=== PATIENT | female | born 1965 | race Caucasian/White ===

== ENCOUNTER 2019-12-23 09:00 | Outpatient (CLI) | payer OTHER, SELFPAY ==
[2019-12-23 09:18] LABS: Basophils Absolute Auto 0.1 K/mm3 (0.0-0.1); Basophils Percent Auto 0.7 % (0.2-1.2); Eosinophils Absolute Auto 0.3 K/mm3 (0-0.3); Eosinophils Percent Auto 2.6 % (0-4.4); Hematocrit 31.1 % (37.0-47.0); Hemoglobin 9.8 g/dL (12.0-15.0); Immature Granulocyte Absolute 0.05 K/mm3 (0.00-0.031); Immature Granulocyte Percent A 0.4 % (0-0.5); Lymphocytes Absolute Auto 1.91 K/mm3 (0.9-3.2); Lymphocytes Percent Auto 16.4 % (18.3-44.2); Mean Corpuscular HGB Conc 31.5 g/dl (32-36); Mean Corpuscular Hemoglobin 29.4 pg (26-34); Mean Corpuscular Volume 93.4 fl (80-100); Mean Platelet Volume 8.4 fl (7.4-10.4); Monocytes Absolute Auto 0.5 K/mm3 (0.1-0.6); Monocytes Percent Auto 4.4 % (2.6-8.5); Neutrophils Absolute Auto 8.8 K/mm3 (1.3-6.7); Neutrophils Percent Auto 75.5 % (45.5-73.1); Platelet Count Result 719 k/mm3 (150-375); Red Blood Count 3.33 M/mm3 (4.2-5.4); White Blood Count 11.6 K/mm3 (4.5-10.0)
[2019-12-23 09:30] LABS: Blood Urea Nitrogen 15 mg/dL (7-17); Carbon Dioxide 21 mmol/L (22-30); Chloride 105 mmol/L (98-107); Estimated Glomerular Filt Rate > 60; Glucose 78 mg/dL (65-105); Potassium 3.7 mmol/L (3.4-5.0); Sodium 138 mmol/L (137-145)
== END 2019-12-23 09:01 | disposition home or self-care (01) ==
LOC: ANHLAB 09:03
PROVIDERS: PCP Internal Medicine; Visit Provider Surgery
DX: K63.5 Polyp of colon (principal)
CPT/HCPCS: 36415; 80048; 85025

== ENCOUNTER 2019-12-30 08:32 | Outpatient (CLI) | payer OTHER, SELFPAY ==
[2019-12-30 08:45] LABS: Basophils Absolute Auto 0.1 K/mm3 (0.0-0.1); Eosinophils Absolute Auto 0.3 K/mm3 (0-0.3); Eosinophils Percent Auto 4.4 % (0-4.4); Hematocrit 31.5 % (37.0-47.0); Hemoglobin 10.1 g/dL (12.0-15.0); Immature Granulocyte Absolute 0.03 K/mm3 (0.00-0.031); Immature Granulocyte Percent A 0.4 % (0-0.5); Lymphocytes Absolute Auto 2.09 K/mm3 (0.9-3.2); Lymphocytes Percent Auto 28.9 % (18.3-44.2); Mean Corpuscular HGB Conc 32.1 g/dl (32-36); Mean Corpuscular Hemoglobin 29.3 pg (26-34); Mean Corpuscular Volume 91.3 fl (80-100); Mean Platelet Volume 8.4 fl (7.4-10.4); Monocytes Absolute Auto 0.4 K/mm3 (0.1-0.6); Monocytes Percent Auto 5.1 % (2.6-8.5); Neutrophils Absolute Auto 4.3 K/mm3 (1.3-6.7); Neutrophils Percent Auto 60.2 % (45.5-73.1); Platelet Count Result 558 k/mm3 (150-375); Red Blood Count 3.45 M/mm3 (4.2-5.4); Red Cell Distribution Width 13.1 % (11.5-14.5); White Blood Count 7.2 K/mm3 (4.5-10.0)
[2019-12-30 08:57] LABS: Alanine Aminotransferase 20 U/L (4-35); Albumin Level 4.2 g/dL (3.5-5.1); Alkaline Phosphatase 79 U/L (38-126); Aspartate Amino Transferase 25 U/L (14-36); Bilirubin,Total 0.2 mg/dL (0.2-1.3); Blood Urea Nitrogen 16 mg/dL (7-17); Calcium 9.4 mg/dL (8.4-10.2); Carbon Dioxide 18 mmol/L (22-30); Chloride 107 mmol/L (98-107); Estimated Glomerular Filt Rate > 60; Glucose 92 mg/dL (65-105); Potassium 3.8 mmol/L (3.4-5.0); Sodium 141 mmol/L (137-145)
== END 2019-12-30 08:33 | disposition home or self-care (01) ==
LOC: ANHLAB 08:34
PROVIDERS: PCP Internal Medicine; Visit Provider Surgery
DX: K63.5 Polyp of colon (principal)
CPT/HCPCS: 36415; 80053; 85025

== ENCOUNTER 2020-01-11 07:27 | Outpatient (CLI) | payer OTHER, SELFPAY ==
--- NOTE | ~2020-01-11 | CT_ITS ---
EXAMINATION: CT abdomen pelvis w con DATE: 01/11/2020 08:18 INDICATION: Lower abdominal pain since small bowel resection and colectomy surgery 12/08/2019 TECHNIQUE: Computed tomography (CT) of the abdomen and pelvis was performed with 100 cc Omnipaque 350 intravenous contrast. Automated exposure control and iterative reconstruction technique were employe d. Exam dose: 954.87 mGy-cm total exam DLP. COMPARISON: 12/13/2019 CT abdomen pelvis FINDINGS: There are scattered areas of discoid atelectasis and/or scarring in the included lower lung zones but no consolidation. Normal heart size. No pericardial or pleural effusion. There are multiple surgical clips at the gallbladder fossa. No hepatic, splenic, pancreatic or adrena l space-occupying mass lesion is detected. There is upper pole right renal scarring. There is a 4 mm nonenhancing lower pole left renal lesion, too small to definitively characterize, st atistically most likely a small cyst. No other renal space occupying mass lesion. There is extensive calcification of the abdominal aorta, without aneurysm or dissection. There is an open surgical wound of the anterior abdominal wall right of midline, some soft tissue thi ckening along the surgical scar. No apparent drainable abnormal abdominal wall fluid collection. There is considerably diminished free fluid in the pelvis, with only minimal residual dependent fluid in the lower pelvis. No abscess cavity is identified. Again noted is extensive partial colectomy. Minimal diverticulosis of the colon. No bowel obstruction or intraperitoneal free air is evident. Anterior, interbody and posterior spinal fusion at L5-S1. IMPRESSION: Status post partial colectomy with ileocolic anastomosis; no bowel obstruction is eviden t There is diminished free fluid since 12/13/2019 No drainable abscess is identified. Reviewed, dictated and finalized at [facility]. Reviewed, dictated and finalized at location [facility]. [employer]M [employer]PARER IMPRESSION: Status post partial colectomy with ileocolic anastomosis; no bowel obstruction is evident There is diminished free fluid since 12/13/2019 No drainable abscess is identified.
== END 2020-01-11 07:28 | disposition home or self-care (01) ==
PROVIDERS: PCP Internal Medicine; Visit Provider Surgery
DX: R10.30 Lower abdominal pain, unspecified (principal)
CPT/HCPCS: 74177; Q9965

== ENCOUNTER 2020-01-30 16:09 | Emergency (ER) | payer OTHER, SELFPAY ==
--- NOTE | ~2020-01-30 | CT_ITS ---
EXAMINATION: CT abdomen pelvis w con EXAM DATE: 01/30/2020 17:32 INDICATION: Low abdominal pain. TECHNIQUE: Spiral CT of the abdomen and pelvis was performed following intravenous injection of 100 m L Omnipaque 350. Axial, coronal and sagittal images were reviewed. The dose-length product (DLP) fo r this examination was 690.64 mGy-cm. The exposure was tailored according to patient size (auto mA e xposure control), and iterative reconstruction (ASIR) was used as additional dose reduction technique . Comparison is made to prior examination from 01/11/2020. FINDINGS: Partial colectomy with moderate amount of colonic edema, colitis new compared to prior stud y. Colonic fluid indicating diarrhea. Also, development of small focal pocket of fluid extending from the abdominal wall to the skin in the left side of the umbilicus measuring about 1.5 x 3.3 cm, appea tammie is consistent with small abscess. The liver, spleen, adrenal glands and pancreas are unremarkable. There are cholecystectomy clips. P ortal and splenic veins are patent. Kidneys enhance symmetrically. There is no hydronephrosis. Righ t renal cortical scarring at the superior pole (reportedly patient has history of kidney cancer and t his could be the treatment site). The uterus is not identified and has likely been surgically resect ed. The bladder is unremarkable. There is no retroperitoneal or pelvic lymphadenopathy. There is mild scattered arteriosclerotic disease. The stomach and small bowel are unremarkable. Surgical changes from hemicolectomy. No free intrape ritoneal gas. The heart is normal in size. There are no pericardial or pleural effusions. The sean g bases are unremarkable. There are no osteoblastic or osteolytic lesions identified. L5-S1 fusion h ardware. IMPRESSION: 1. Partial colectomy with colitis of remaining portion of colon. Diarrhea. 2. Small abscess along medial side of the umbilicus, should be easily be palpable and drainable with out need for imaging guidance if indicated clinically. 3. Right renal cortical scarring. Reviewed, dictated and finalized at location [facility]. IMPRESSION: 1. Partial colectomy with colitis of remaining portion of colon. Diarrhea. 2. Small abscess along medial side of the umbilicus, should be easily be palpa ble and drainable without need for imaging guidance if indicated clinically. 3. Right renal cortical scarring.
[2020-01-30 16:10] VITALS: BP 155/76; PULSE 78; RESP 20; TEMP 37; O2SAT 96
[2020-01-30] MEDS: SODIUM CHLORIDE 0.9% IV 1,000 ML 999 ML IV CONT (16:42)
[2020-01-30] MEDS: ONDANSETRON INJ 4 MG/2 ML VIAL IV PUSH (16:42)
[2020-01-30 16:43] LABS: Hematocrit 34.8 % (35.0-49.0); Hemoglobin 11.5 g/dL (12.0-15.0); Mean Corpuscular Volume 87.7 fL (78.0-102.0); Mean Platelet Volume 8.5 fl (9.2-11.8); Platelet Count Result 431 K/mm3 (150-420); Red Blood Count 3.97 M/mm3 (4.20-5.40); Red Cell Distribution Width 12.7 % (11.6-14.4); White Blood Count 9.4 K/mm3 (4.8-10.8)
[2020-01-30] MEDS: MORPHINE SULFATE 4 MG/ML INJ IM (16:43)
[2020-01-30 16:44] LABS: Add Urine Microscopic? YES; Appearance Urine Clear (Clear); Bilirubin Urine Negative (Negative); Blood Urine Negative (Negative); Color Urine Yellow (Yellow); Glucose Urine UA Negative (Negative); Ketones Urine 1+ (Negative); Leukocyte Esterase Ur Negative (Negative); Nitrate Urine Negative (Negative); Protein Urine 2+ (Negative); Urobilinogen Urine 0.2 mg/dL (0.2-1.0)
--- NOTE | 2020-01-30 16:44 | PC.NURSE ---
MORPHINE 4 MG GIVEN IVP VORB LAC
[2020-01-30 16:54] LABS: RBC Urine 0-2 /hpf (0-2); Squamous Epithelial Cell Urine Rare /hpf (Few); WBC Urine 0-3 /hpf (0-3)
[2020-01-30 16:55] LABS: Bacteria Urine 1+ /hpf
[2020-01-30 17:01] LABS: Alanine Aminotransferase 16 U/L (14-59); Albumin Level 3.5 g/dL (3.4-5.0); Alkaline Phosphatase 70 U/L (46-116); Anion Gap 18.9 mmol/L (7-16); Aspartate Amino Transferase 16 U/L (15-37); Bilirubin,Total 0.3 mg/dL (0.00-1.00); Blood Urea Nitrogen 8 mg/dL (7-18); Calcium 8.4 mg/dL (8.5-10.1); Carbon Dioxide 24 mmol/L (21-32); Chloride 103 mmol/L (98-108); Estimated Glomerular Filt Rate > 60; Glucose 76 mg/dL (70-99); Osmolality Calculated 293 mOsm/kg (285-295); Potassium 2.9 mmol/L (3.5-5.1); Sodium 143 mmol/L (136-145); Total Protein 7.4 g/dL (6.4-8.2)
[2020-01-30] MEDS: KCL 20MEQ/0.9% SOD CHL 1,000 ML 500 ML IV CONT (17:39)
[2020-01-30 17:47] VITALS: BP 157/75; PULSE 70; O2SAT 92
--- NOTE | 2020-01-30 17:54 | ED.ABDPAIN ---
HPI - Abdominal Pain General Chief Complaint: Abdominal Pain Stated Complaint: abdominal pain,weakness Source: patient and family Mode of arrival: ambulatory Limitations: no limitations History of Present Illness HPI narrative: This is a 54-year-old female that presents with history of right hemicolectomy secondary to a colon polyps and left colectomy with anastomosis, with a remote history of renal cell carcinoma, hypertension and hyperlipidemia. The presents with some abdominal and suprapubic and perineal discomfort that is chronic in nature and has had Toradol for pain which she claims initially was helping but currently is not giving her any relief does have pain with passing bowel and urine there is no rectal bleeding does have some dysuria and some soft runny stools with no fever or chills pain radiates into her pelvic area and with into the suprapubic area with no flank pain no fever chills does have nausea with no vomiting. MD elicited complaint: abdominal pain Pertinent past history: none Onset (ago): week(s) Pain Consistency: intermittent Location: suprapubic Severity: severe Pain scale (0-10): 8 Quality: aching and burning Relieving factors: nothing Associated symptoms: nausea Treatments prior to arrival: NSAIDs Related Data Home Medications Medication Instructions Recorded Confirmed ascorbate calcium (vitamin C) 500 1,000 mg PO DAILY 10/19/19 01/30/20 mg tablet cholecalciferol (vitamin D3) 50 50 mcg PO DAILY 10/19/19 01/30/20 mcg (2,000 unit) capsule ezetimibe 10 mg tablet 10 mg PO DAILY 10/19/19 01/30/20 insulin glargine 100 unit/mL 50 unit SUB-Q BID 10/19/19 01/30/20 subcutaneous solution linagliptin 2.5 mg-metformin 1,000 1 tablet PO BID 10/19/19 01/30/20 mg tablet losartan 25 mg tablet 25 mg PO HS 10/19/19 01/30/20 mecobalamin (vitamin B12) 1,000 1,000 mcg SUBLINGUAL DAILY 10/19/19 01/30/20 mcg disintegrating tablet,sublingual omeprazole 40 mg capsule,delayed 40 mg PO DAILY 10/19/19 01/30/20 release pravastatin 40 mg tablet 40 mg PO HS 10/19/19 01/30/20 sertraline 100 mg tablet 100 mg PO HS 10/19/19 01/30/20 tramadol 50 mg tablet 50 mg PO Q6H PRN 10/19/19 01/30/20 Cbd/Thc 0 mg BID 11/30/19 01/30/20 Allergies Allergy/AdvReac Type Severity Reaction Status Date / Time amoxicillin Allergy Unknown RASH Verified 01/17/20 09:04 clavulanic acid Allergy Unknown RASH Verified 01/17/20 09:04 Review of Systems Review of Systems: All systems reviewed & are unremarkable except as noted in HPI and below PMFSH Past Medical History Medical History Anxiety Cancer Depression Fibromyalgia High cholesterol History of blood clots History of renal cell carcinoma HTN (hypertension) IDDM (insulin dependent diabetes mellitus) UMU (obstructive sleep apnea) Portal vein thrombosis Surgical History Surgical History H/O: hysterectomy History of back surgery History of History of cholecystectomy History of colonoscopy History of nephrectomy History of right hemicolectomy hand access laparoscopic, right hemicolectomy open left colectomy with ileo sigmoid anastomosis, takedown splenic flexure, small-bowel resection with anastomosis x2 12/08/19 Hx of tonsillectomy Family History Family History Mother Hypertension Sibling Lung cancer Colon polyp Unknown Diabetes mellitus Cerebrovascular accident Hypertension Social History Social History Years smoked: 20 Smoking status: Current every day smoker Tobacco type: cigarettes Second hand tobacco smoke exposure: Yes Alcohol intake: unknown Substance use: unknown Substance use type: does not use Gender identity (if verbalized by the patient): Female Spiritual care concerns: No Agree to blood products: Ye
[2020-01-30] MEDS: MORPHINE SULFATE 2 MG/ML INJ IV PUSH (18:12)
[2020-01-30 19:08] VITALS: BP 117/63; PULSE 75; O2SAT 93
--- NOTE | 2020-01-30 19:20 | PC.NURSE ---
RN CALLED INTO ROOM. PT STATES SHE FEELS SHAKEY, FSBS FOUND TO BE 31. PT IS ALERT X 3 AND STATES SHE IS HUNGRY. D10 ORDERED PER VORB AND INFUSING. PT IS GIVEN MEAL TRAY. POTASSIUM 20 MEQ STOPPED AT THIS TIME UNTIL GLUCOSE REGULATES
--- NOTE | 2020-01-30 19:44 | PC.NURSE ---
100 ML D10 INFUSED - FSBS 60, WILL CONTINUE POTASSIUM 20 MEQ - WILL CONTINUE TO MONITOR FSBS
--- NOTE | 2020-01-30 20:18 | PC.NURSE ---
FSBS 67 - PT IS GIVEN ANOTHER PEPSI. PT STATES THAT SHE FEELS 100% BETTER AND WOULD LIKE TO GO HOME. ERP AT BEDSIDE
[2020-01-30 20:34] VITALS: BP 148/65; PULSE 80; O2SAT 99
[2020-01-30 21:43] LABS: Glucose Point of Care 60 (65-105)
[2020-01-30 21:43] LABS: Glucose Point of Care 67 (65-105)
[2020-01-30 21:43] LABS: Glucose Point of Care < 33 (65-105)
== END 2020-01-30 20:34 | disposition home or self-care (01) ==
PROVIDERS: Emergency Provider Emergency Medicine; PCP Internal Medicine
DX: R10.30 Lower abdominal pain, unspecified (principal); K62.3 Rectal prolapse; E87.6 Hypokalemia; R11.2 Nausea with vomiting, unspecified; N39.0 Urinary tract infection, site not specified
CPT/HCPCS: 36415; 74177; 80053; 81001; 85027; 96361; 96365; 96368; 96375; 96376; 99283; 99284; J2270; J2405; J3480; J7030; Q9965

== ENCOUNTER 2020-02-04 12:41 | Emergency (ER) | payer OTHER, SELFPAY ==
--- NOTE | ~2020-02-04 | CT_ITS ---
EXAMINATION: CT abdomen pelvis w con DATE: 02/04/2020 13:49 INDICATION: Low abdominal pain. TECHNIQUE: Computed tomography (CT) of the abdomen and pelvis was performed with 100 mL Omnipaque 350 intravenous contrast. Automated exposure control and iterative reconstruction technique were employe d. The dose-length product was 652.40 mGy-cm. COMPARISON: CT abdomen and pelvis 01/30/2020 FINDINGS: The visualized portions of the lung bases demonstrate mild atelectasis. No pleural effusion . The heart size is normal. No pericardial effusion. The liver demonstrates focal steatosis adjacent to ligamentum teres. There is an 8 mm cyst in the liver. There are changes of cholecystectomy. The sp fredo, pancreas, and adrenal glands are normal. There is cortical thinning of the kidneys. There is wa ll thickening of the rectosigmoid. There are changes of partial colon resection. There is trace ascit es. There is a midline incision with subcutaneous packing material. There are no pathologically enlar ged lymph nodes. There are changes of anterior and posterior fusion procedures at L5-S1. There is mod erate thoracic spondylosis and mild lumbar spondylosis. IMPRESSION: 1. Persistent wall thickening of the rectosigmoid, consistent with colitis. Reviewed, dictated and finalized at location [facility].
[2020-02-04 12:45] VITALS: RESP 20; TEMP 36.4
--- NOTE | 2020-02-04 12:50 | PC.NURSE ---
Patient reports that she had abcess drained by Dr Jeff on 12/08/2019 and again on Friday01/31/2020
--- NOTE | 2020-02-04 12:58 | ED.ABDPAIN ---
HPI - Abdominal Pain General Chief Complaint: Abdominal Pain Stated Complaint: abdominal pain Time Seen by Provider: 02/04/20 12:44 Source: patient and family Mode of arrival: ambulatory Limitations: no limitations History of Present Illness HPI narrative: A 54 y/o female pt presents to the ED, with c/o sharp LLQ ABD pain, and epigastric ABD pain that began at 100AM this morning that is worsening. Pt states she had a small bowel reduction performed in November and that she had a abscess drained by Dr. Jeff on Friday (4 days ago) and has noticed diffuse ABD soreness since. She denies having a wound vac and family at bedside that has been cleaning the pt's bandages, denies noticing an increase or change in drainage from the wound. Pt reports having lower back pain that began today, chronic diarrhea, nausea with pain, and BELTRAN, but denies CP or pressure, swelling in legs, fever/chills/sweats, and vomiting. She denies any alleviating or aggravating factors. Pt states she is currently on Abx for a UTI. She notes an allergy to amoxicillin. MD elicited complaint: abdominal pain Onset (ago): hour(s) (12) Location: diffuse (soreness), epigastric and LLQ (sharp) Quality: sharp (LLQ) Exacerbating factors: nothing Relieving factors: nothing Context: confirms recent antibiotic use (current Abx for UTI) and confirms recent surgery/procedure (abscess, small bowel reduction) Associated symptoms: nausea (with pain), diarrhea (chronic) and other (BELTRAN) Related Data Home Medications Medication Instructions Recorded Confirmed ascorbate calcium (vitamin C) 500 1,000 mg PO DAILY 10/19/19 02/02/20 mg tablet cholecalciferol (vitamin D3) 50 50 mcg PO DAILY 10/19/19 02/02/20 mcg (2,000 unit) capsule ezetimibe 10 mg tablet 10 mg PO DAILY 10/19/19 02/02/20 insulin glargine 100 unit/mL 50 unit SUB-Q BID 10/19/19 02/02/20 subcutaneous solution linagliptin 2.5 mg-metformin 1,000 1 tablet PO BID 10/19/19 02/02/20 mg tablet losartan 25 mg tablet 25 mg PO HS 10/19/19 02/02/20 mecobalamin (vitamin B12) 1,000 1,000 mcg SUBLINGUAL DAILY 10/19/19 02/02/20 mcg disintegrating tablet,sublingual omeprazole 40 mg capsule,delayed 40 mg PO DAILY 10/19/19 02/02/20 release pravastatin 40 mg tablet 40 mg PO HS 10/19/19 02/02/20 sertraline 100 mg tablet 100 mg PO HS 10/19/19 02/02/20 tramadol 50 mg tablet 50 mg PO Q6H PRN 10/19/19 02/02/20 Cbd/Thc 0 mg BID 11/30/19 02/02/20 Allergies Allergy/AdvReac Type Severity Reaction Status Date / Time amoxicillin Allergy Unknown RASH Verified 02/04/20 12:48 clavulanic acid Allergy Unknown RASH Verified 02/04/20 12:48 Review of Systems Review of Systems: All systems reviewed & are unremarkable except as noted in HPI and below Constitutional: Constitutional: Denies chills, Denies excessive sweating, Denies fever(s) and Reports headache(s) Cardiovascular: Cardiovascular: Denies chest pain (pressure) and Denies leg edema Gastrointestinal: Gastrointestinal: Reports abdominal pain (sharp LLQ, diffuse soreness, epigastric), Reports diarrhea (chronic), Reports nausea (with pain) and Denies vomiting Musculoskeletal: Musculoskeletal: Reports back pain (lower) Integumentary/Breasts: Skin/Breast: Denies other (change in wound drainage) PMFSH Past Medical History Medical History Anxiety Cancer Depression Fibromyalgia High cholesterol History of blood clots History of renal cell carcinoma HTN (hypertension) IDDM (insulin dependent diabetes mellitus) UMU (obstructive sleep apnea) Portal vein thrombosis Surgical History Surgical History H/O: hysterectomy History of back surgery History of History of cholecystectomy History of colonoscopy History of nephrectomy History of right hemicolectomy hand access laparoscopic, right hemicolectomy open left colectomy with ileo sigmoid anastomosis, takedown sple
[2020-02-04] MEDS: MORPHINE SULFATE 4 MG/ML INJ IV PUSH (13:14)
[2020-02-04] MEDS: ONDANSETRON INJ 4 MG/2 ML VIAL IV PUSH (13:14)
[2020-02-04 13:21] LABS: Glucose Point of Care 111 (65-105)
[2020-02-04 13:29] LABS: Basophils Percent Auto 0.4 % (0.2-1.2); Eosinophils Absolute Auto 0.2 K/mm3 (0-0.3); Eosinophils Percent Auto 1.9 % (0-4.4); Hemoglobin 11.8 g/dL (12.0-15.0); Immature Granulocyte Absolute 0.02 K/mm3 (0.00-0.031); Immature Granulocyte Percent A 0.3 % (0-0.5); Lymphocytes Absolute Auto 1.47 K/mm3 (0.9-3.2); Lymphocytes Percent Auto 18.5 % (18.3-44.2); Mean Corpuscular HGB Conc 32.8 g/dl (32-36); Mean Corpuscular Hemoglobin 28.6 pg (26-34); Mean Corpuscular Volume 87.4 fl (80-100); Mean Platelet Volume 9.1 fl (7.4-10.4); Monocytes Absolute Auto 0.5 K/mm3 (0.1-0.6); Neutrophils Absolute Auto 5.8 K/mm3 (1.3-6.7); Neutrophils Percent Auto 72.9 % (45.5-73.1); Platelet Count Result 421 k/mm3 (150-375); Red Blood Count 4.12 M/mm3 (4.2-5.4); Red Cell Distribution Width 12.7 % (11.5-14.5)
[2020-02-04 13:40] LABS: Estimated CRCL calculation 115 ml/min; Estimated Glomerular Filt Rate > 60
[2020-02-04 13:40] LABS: Alanine Aminotransferase 15 U/L (4-35); Albumin Level 4.2 g/dL (3.5-5.1); Alkaline Phosphatase 75 U/L (38-126); Aspartate Amino Transferase 20 U/L (14-36); Bilirubin,Total 0.4 mg/dL (0.2-1.3); Blood Urea Nitrogen 5 mg/dL (7-17); Calcium 8.9 mg/dL (8.4-10.2); Carbon Dioxide 23 mmol/L (22-30); Chloride 107 mmol/L (98-107); Estimated CRCL calculation 115 ml/min; Estimated Glomerular Filt Rate > 60; Glucose 109 mg/dL (65-105); Potassium 3.4 mmol/L (3.4-5.0); Sodium 139 mmol/L (137-145)
[2020-02-04 13:41] LABS: Lactic Acid Reflex 1.6 mmol/L (0.7-2.1); Lipase < 10 U/L (23-300)
[2020-02-04 13:57] VITALS: BP 143/75; PULSE 71; RESP 19; O2SAT 90
--- NOTE | 2020-02-04 14:40 | PC.NURSE ---
Patient reporting inability to urinate, refusing cath at this time. requesting medication for headache.
[2020-02-04 15:10] VITALS: BP 135/54; PULSE 70; O2SAT 99
--- NOTE | 2020-02-04 15:29 | PC.NURSE ---
Patient requesting pain medication due to increase in abd pain after BM. Dr mast aware
[2020-02-04 15:32] LABS: Add Urine Microscopic? YES; Appearance Urine Clear (Clear); Bilirubin Urine Negative (Negative); Blood Urine Negative (Negative); Color Urine Yellow (Yellow); Glucose Urine UA Negative (Negative); Ketones Urine Trace mg/dL (Negative); Leukocyte Esterase Ur Negative LEU/UL (Negative); Mucus Urine Rare /lpf; Nitrate Urine Negative (Negative); Protein Urine 2+ mg/dL (Negative); RBC Urine 0-2 /hpf (0-2); Specific Grav Ur 1.023 (1.001-1.035); Squamous Epithelial Cell Urine Rare /hpf (Few); Urobilinogen Urine Negative mg/dL (<2.0); WBC Urine 0-3 /hpf
== END 2020-02-04 17:41 | disposition home or self-care (01) ==
PROVIDERS: Emergency Provider Emergency Medicine; PCP Internal Medicine
DX: K52.9 Noninfective gastroenteritis and colitis, unspecified (principal); E78.00 Pure hypercholesterolemia, unspecified; Z85.528 Personal history of other malignant neoplasm of kidney; E11.9 Type 2 diabetes mellitus without complications; G47.33 Obstructive sleep apnea (adult) (pediatric); M79.7 Fibromyalgia; F41.9 Anxiety disorder, unspecified; F17.210 Nicotine dependence, cigarettes, uncomplicated; Z90.49 Acquired absence of other specified parts of digestive tract; Z79.4 Long term (current) use of insulin; F32.9 Major depressive disorder, single episode, unspecified
CPT/HCPCS: 36415; 51701; 74177; 80053; 81001; 82948; 83605; 83690; 85025; 87040; 96374; 96375; 99284; J0131; J2270; J2405; Q9967

== ENCOUNTER 2020-02-05 18:34 | Outpatient (CLI) | payer OTHER, SELFPAY | END 2020-02-05 18:35 | disposition home or self-care (01) | LOC: CHSLAB 18:39 | PROVIDERS: PCP Internal Medicine; Visit Provider Internal Medicine Gastroenterology | DX: K58.9 Irritable bowel syndrome, unspecified (principal) | CPT/HCPCS: 87324 ==

== ENCOUNTER 2020-02-29 15:17 | Outpatient (CLI) | payer OTHER, SELFPAY ==
[2020-02-29 15:35] LABS: Basophils Absolute Auto 0.03 K/mm3 (0.00-0.10); Basophils Percent Auto 0.5 % (0.0-1.0); Eosinophils Absolute Auto 0.31 K/mm3 (0.02-0.50); Eosinophils Percent Auto 4.9 % (1.0-6.0); Hematocrit 36.2 % (35.0-49.0); Immature Granulocyte Absolute 0.01 K/mm3 (0.00-0.00); Immature Granulocyte Percent A 0.2 % (0.0-0.0); Lymphocytes Percent Auto 37.9 % (18.0-42.0); Mean Corpuscular HGB Conc 33.1 g/dL (32.0-36.0); Mean Corpuscular Hemoglobin 28.6 pg (27.0-31.0); Mean Corpuscular Volume 86.4 fL (78.0-102.0); Mean Platelet Volume 9.1 fl (9.2-11.8); Monocytes Absolute Auto 0.41 K/mm3 (0.10-0.90); Monocytes Percent Auto 6.5 % (2.0-11.0); Neutrophils Absolute Auto 3.2 K/mm3 (1.7-7.2); Platelet Count Result 298 K/mm3 (150-420); Red Blood Count 4.19 M/mm3 (4.20-5.40); White Blood Count 6.3 K/mm3 (4.8-10.8)
[2020-02-29 16:40] LABS: Anion Gap 18.3 mmol/L (7-16); Blood Urea Nitrogen 27 mg/dL (7-18); Calcium 8.9 mg/dL (8.5-10.1); Carbon Dioxide 19 mmol/L (21-32); Chloride 106 mmol/L (98-108); Estimated Glomerular Filt Rate 55; Glucose 208 mg/dL (70-99); Osmolality Calculated 299 mOsm/kg (285-295); Potassium 4.3 mmol/L (3.5-5.1); Sodium 139 mmol/L (136-145); Vitamin B12 1268 pg/mL (193-986)
[2020-03-02 17:27] LABS: Vitamin D 25 Hydroxy 21 ng/mL (30-100)
== END 2020-02-29 15:18 | disposition home or self-care (01) ==
PROVIDERS: PCP Internal Medicine
DX: R19.7 Diarrhea, unspecified (principal); Z98.890 Other specified postprocedural states; R53.81 Other malaise; R53.83 Other fatigue; Z90.49 Acquired absence of other specified parts of digestive tract
CPT/HCPCS: 36415; 80048; 82306; 82607; 84443; 85025; 87045; 87046; 87427; 89055

== ENCOUNTER 2020-04-01 12:52 | Outpatient (CLI) | payer OTHER, SELFPAY ==
[2020-04-01 13:07] LABS: Basophils Absolute Auto 0.04 K/mm3 (0.00-0.10); Basophils Percent Auto 0.4 % (0.0-1.0); Eosinophils Absolute Auto 0.29 K/mm3 (0.02-0.50); Eosinophils Percent Auto 3.1 % (1.0-6.0); Hematocrit 36.8 % (35.0-49.0); Hemoglobin 12.1 g/dL (12.0-15.0); Immature Granulocyte Absolute 0.02 K/mm3 (0.00-0.00); Immature Granulocyte Percent A 0.2 % (0.0-0.0); Mean Corpuscular HGB Conc 32.9 g/dL (32.0-36.0); Mean Corpuscular Hemoglobin 28.5 pg (27.0-31.0); Mean Corpuscular Volume 86.6 fL (78.0-102.0); Mean Platelet Volume 8.9 fl (9.2-11.8); Monocytes Absolute Auto 0.49 K/mm3 (0.10-0.90); Monocytes Percent Auto 5.3 % (2.0-11.0); Neutrophils Absolute Auto 5.8 K/mm3 (1.7-7.2); Platelet Count Result 351 K/mm3 (150-420); Red Blood Count 4.25 M/mm3 (4.20-5.40); Red Cell Distribution Width 13.5 % (11.6-14.4); White Blood Count 9.3 K/mm3 (4.8-10.8)
[2020-04-01 13:34] LABS: Alanine Aminotransferase 55 U/L (14-59); Albumin Level 3.9 g/dL (3.4-5.0); Alkaline Phosphatase 82 U/L (46-116); Anion Gap 16.5 mmol/L (7-16); Aspartate Amino Transferase 29 U/L (15-37); Bilirubin,Total 0.3 mg/dL (0.00-1.00); Blood Urea Nitrogen 20 mg/dL (7-18); Calcium 8.9 mg/dL (8.5-10.1); Carbon Dioxide 23 mmol/L (21-32); Chloride 107 mmol/L (98-108); Estimated Glomerular Filt Rate > 60; Glucose 70 mg/dL (70-99); Osmolality Calculated 294 mOsm/kg (285-295); Potassium 4.5 mmol/L (3.5-5.1); Sodium 142 mmol/L (136-145); Total Protein 7.2 g/dL (6.4-8.2)
[2020-04-03 14:19] LABS: Cholesterol 148 mg/dL (0-200); Hemoglobin A1C 7.2 % (<5.7); Triglycerides 204 mg/dL (0-150)
[2020-04-03 14:20] LABS: HDL Direct 57 mg/dL (40-60); LDL Cholesterol Calculated 50 mg/dL (<130)
[2020-04-05 16:18] LABS: Tissue Transglutaminase IgA Ab 1 U/mL (<4)
[2020-04-05 21:32] LABS: ANCA Screen Negative (Negative); Myeloperoxidase Ab <1.0 AI (<1.0); Proteinase-3 Ab <1.0 AI (<1.0); S cerevisiae Ab (IgA) 4.5 U (<=20.0); S cerevisiae Ab (IgG) 8.4 U (<=20.0)
[2020-04-06 21:43] LABS: Tissue Transglutaminase IgG Ab 26 U/mL (<6)
== END 2020-04-01 12:53 | disposition home or self-care (01) ==
LOC: CHSLAB 12:53
PROVIDERS: PCP Internal Medicine; Visit Provider Internal Medicine
DX: R19.7 Diarrhea, unspecified (principal); E11.65 Type 2 diabetes mellitus with hyperglycemia
CPT/HCPCS: 36415; 80053; 80061; 83036; 83516; 85025; 86021; 86671

== ENCOUNTER 2020-06-14 12:33 | Outpatient (CLI) | payer OTHER, SELFPAY ==
[2020-06-18 20:39] LABS: Vitamin D 25 Hydroxy 34 ng/mL (30-100)
== END 2020-06-14 12:34 | disposition home or self-care (01) ==
LOC: CHSLAB 12:35
PROVIDERS: PCP Internal Medicine; Visit Provider Internal Medicine
DX: E55.9 Vitamin D deficiency, unspecified (principal)
CPT/HCPCS: 36415; 82306

== ENCOUNTER 2020-07-06 21:26 | Emergency (ER) | payer OTHER, SELFPAY ==
--- NOTE | ~2020-07-06 | XR_ITS ---
EXAMINATION: XR chest 2V EXAM DATE: 07/06/2020 22:09 INDICATION: Shortness of breath, fever and cough. TECHNIQUE: Frontal and lateral projections of the chest obtained and reviewed. Comparison is made to prior examination from 12/13/2019. FINDINGS: Resolution of previously seen linear bilateral opacities. No confluent consolidation, pneu mothorax or pleural effusion suspected. There are no osseous abnormalities identified. IMPRESSION: Unremarkable chest x-ray exam. Reviewed, dictated and finalized at location [facility].
[2020-07-06 21:35] VITALS: BP 168/82; PULSE 95; RESP 26; TEMP 37.4; O2SAT 97
[2020-07-06 22:07] VITALS: PULSE 99; RESP 22
[2020-07-06] MEDS: IPRATROPIUM 0.5 MG/ALBUTEROL SULFATE 2.5 MG AMPUL.NEB 3 ML INHALATION (22:07)
[2020-07-06 22:13] VITALS: PULSE 87; RESP 22
[2020-07-06] MEDS: methylPREDNISolone ACETATE 40 MG/ML VIAL 80 MG IM (22:18)
--- NOTE | 2020-07-06 22:21 | ED.GENADULT ---
HPI - General Adult General Chief complaint: Headache Stated complaint: cough,fever,headache Source: patient and family Mode of arrival: ambulatory Limitations: no limitations History of Present Illness HPI narrative: is a 54-year-old female presents with chest congestion with shortness of breath some cough productive of clear white sputum with currently no fever or chills, no chest pain has a history of diabetes, hypertension, hyperlipidemia. Patient's symptoms started approximately 4 to 5 days ago and has persistently had a shortness of breath with some chest congestion and a cough that is productive of white sputum, there is no diarrhea constipation no nausea vomiting no abdominal pain no chest pain no dysuria no fever chills. Onset (ago): day(s) Location: chest Severity: moderate Related Data Home Medications Medication Instructions Recorded Confirmed ascorbate calcium (vitamin C) 500 1,000 mg PO DAILY 10/19/19 07/06/20 mg tablet cholecalciferol (vitamin D3) 50 50 mcg PO DAILY 10/19/19 07/06/20 mcg (2,000 unit) capsule ezetimibe 10 mg tablet 10 mg PO DAILY 10/19/19 07/06/20 losartan 25 mg tablet 25 mg PO HS 10/19/19 07/06/20 mecobalamin (vitamin B12) 1,000 1,000 mcg SUBLINGUAL DAILY 10/19/19 07/06/20 mcg disintegrating tablet,sublingual omeprazole 40 mg capsule,delayed 40 mg PO DAILY 10/19/19 07/06/20 release pravastatin 40 mg tablet 40 mg PO HS 10/19/19 07/06/20 sertraline 100 mg tablet 100 mg PO HS 10/19/19 07/06/20 insulin glargine 100 unit/mL 40 unit SUB-Q BID ml 02/21/20 07/06/20 subcutaneous solution linagliptin 2.5 mg-metformin 1,000 1 tablet PO ONCE tablet 03/06/20 07/06/20 mg tablet Allergies Allergy/AdvReac Type Severity Reaction Status Date / Time amoxicillin Allergy Unknown RASH Verified 07/06/20 08:51 clavulanic acid Allergy Unknown RASH Verified 07/06/20 08:51 Review of Systems Review of Systems: All systems reviewed & are unremarkable except as noted in HPI and below PMFSH Past Medical History Medical History Anxiety Cancer Depression Fibromyalgia High cholesterol History of blood clots History of renal cell carcinoma HTN (hypertension) IDDM (insulin dependent diabetes mellitus) UMU (obstructive sleep apnea) Portal vein thrombosis Surgical History Surgical History H/O: hysterectomy History of back surgery History of History of cholecystectomy History of colonoscopy History of nephrectomy History of right hemicolectomy hand access laparoscopic, right hemicolectomy open left colectomy with ileo sigmoid anastomosis, takedown splenic flexure, small-bowel resection with anastomosis x2 12/08/19 Hx of tonsillectomy Family History Family History Mother Hypertension Sibling Lung cancer Colon polyp Unknown Diabetes mellitus Cerebrovascular accident Hypertension Social History Social History Years smoked: 20 Smoking status: Current every day smoker Tobacco type: cigarettes Second hand tobacco smoke exposure: Yes Alcohol intake: unknown Substance use: unknown Substance use type: does not use Gender identity (if verbalized by the patient): Female Spiritual care concerns: No Agree to blood products: Yes Exam Const: General: no acute distress Orientation/consciousness: patient oriented x3 HENMT: Head: normal to inspection Eyes: Conjunctivae: conjunctivae normal Pupils: Equal, round and reactive pupils present Neck: Neck: normal visual inspection, no lymphadenopathy and no meningeal signs Chest: Chest palpation & inspection: normal inspection of the chest Resp: Effort & Inspection: normal respiratory effort Auscultation: rhonchi, wheezes and diminished lung sounds Cardio: Rate: regular rate Rhythm:
[2020-07-06 22:27] LABS: Hematocrit 32.2 % (35.0-49.0); Hemoglobin 10.7 g/dL (12.0-15.0); Mean Corpuscular HGB Conc 33.2 g/dL (32.0-36.0); Mean Corpuscular Hemoglobin 31.9 pg (27.0-31.0); Mean Corpuscular Volume 96.1 fL (78.0-102.0); Platelet Count Result 320 K/mm3 (150-420); Red Blood Count 3.35 M/mm3 (4.20-5.40); Red Cell Distribution Width 11.9 % (11.6-14.4); White Blood Count 12.1 K/mm3 (4.8-10.8)
[2020-07-06 22:42] LABS: Alanine Aminotransferase 27 U/L (14-59); Albumin Level 3.2 g/dL (3.4-5.0); Alkaline Phosphatase 98 U/L (46-116); Anion Gap 11 mmol/L (8-16); Aspartate Amino Transferase 17 U/L (15-37); Bilirubin,Total 0.2 mg/dL (0.00-1.00); Blood Urea Nitrogen 18 mg/dL (7-18); Calcium 8.6 mg/dL (8.5-10.1); Carbon Dioxide 26 mmol/L (21-32); Chloride 105 mmol/L (98-108); Estimated Glomerular Filt Rate 57; Glucose 175 mg/dL (70-99); Osmolality Calculated 299 mOsm/kg (285-295); Potassium 3.8 mmol/L (3.5-5.1); Sodium 142 mmol/L (136-145); Total Protein 7.6 g/dL (6.4-8.2)
[2020-07-06 22:52] VITALS: BP 130/68; PULSE 87; O2SAT 95
[2020-07-07 18:34] LABS: SARS-CoV-2 RNA PCR Negative
== END 2020-07-06 22:58 | disposition home or self-care (01) ==
PROVIDERS: Emergency Provider Emergency Medicine; PCP Internal Medicine
DX: J06.9 Acute upper respiratory infection, unspecified (principal); Z20.828 Contact with and (suspected) exposure to other viral communicable diseases
CPT/HCPCS: 36415; 71046; 80053; 85027; 87635; 94640; 96372; 99283; A9270; C9803; J1030; U0003

== ENCOUNTER 2020-08-02 07:58 | Outpatient (CLI) | payer OTHER, SELFPAY ==
--- NOTE | ~2020-08-02 | CT_ITS ---
EXAMINATION: CT chest abdomen pelvis wo con DATE: 08/02/2020 08:26 INDICATION: Diarrhea TECHNIQUE: Computed tomography (CT) of the chest, abdomen, and pelvis was performed without intraveno us contrast. Automated exposure control and iterative reconstruction technique were employed. Exam do se: 1133.99 mGy-cm total exam DLP. COMPARISON: None FINDINGS: CHEST CT: No pulmonary infiltrate or consolidation or pulmonary mass lesion is detected. No thyroid mass lesion. Normal heart size. Aortic and great vessel and coronary artery calcifications. No pericardial or pleu ral effusion. No hilar or mediastinal mass lesion or lymphadenopathy. ABDOMEN/PELVIS CT: No hepatic, splenic, pancreatic or adrenal mass lesion. Status post cholecystectomy. No bile duct or pancreatic duct dilatation. There are surgical clips along the right renal vessels and some apparent sutures along the upper anterior and anterolateral margin of the right kidney. No renal mass lesion i s evident on this limited noncontrast examination. No urinary tract calculus or hydroureteronephrosis . There is extensive atherosclerotic calcification of the abdominal aorta. No abdominal aortic aneurysm . No intraperitoneal or retroperitoneal or pelvic mass lesion or adenopathy or ascites. There is partial resection of the colon. No bowel obstruction is evident. There is a wide upper ventral abdominal wall hernia containing stomach and small bowel, without stran gulation or obstruction. The sonographic and material in the rectum and colon. The urinary bladder is relatively evacuated, unremarkable. Status post hysterectomy. Status post anterior and posterior spinal fusion at L5-S1. IMPRESSION: Status post partial colectomy Status post cholecystectomy Postoperative change of the right renal area Upper ventral abdominal wall hernia containing stomach and nonobstructed none strangulate and small b amos Reviewed, dictated and finalized at [facility]. Reviewed, dictated and finalized at location [facility]. IMPRESSION: Status post partial colectomy Status post cholecystectomy Postoperative change of the right renal area Upper ventral abdominal wall hernia containing stomach and nonobstructed none s trangulate and small bowel
== END 2020-08-02 07:59 | disposition home or self-care (01) ==
LOC: CHSIMG 08:00
PROVIDERS: PCP Internal Medicine; Visit Provider Surgery
DX: K43.2 Incisional hernia without obstruction or gangrene (principal)
CPT/HCPCS: 71250; 74176

== ENCOUNTER 2020-09-11 13:03 | Outpatient (CLI) | payer OTHER, SELFPAY ==
--- NOTE | ~2020-09-11 | XR_ITS ---
EXAMINATION: XR chest 2V 09/11/2020 15:36 INDICATION: Preop evaluation. PROCEDURE: 2 view chest COMPARISON: Comparison to multiple prior studies sequentially, with oldest reviewed study dated 02/2019. FINDINGS: The lungs are clear. The cardiomediastinal silhouette is within normal limits. There are no pleural effusions. There is no pneumothorax suspected. IMPRESSION: 1: NO ACUTE CARDIOPULMONARY DISEASE. Reviewed, dictated and finalized at location B.
--- NOTE | 2020-09-11 15:10 | ECG_ITS ---
Measurements Intervals [place] Rate: 77 P: 47 WV: 166 QRS: -14 QRSD: 100 T: 37 QT: 383 QTc: 434 Interpretive Statements SINUS RHYTHM BORDERLINE R WAVE PROGRESSION, ANTERIOR LEADS BASELINE ARTIFACT- AVF BORDERLINE ECG Electronically Signed On 09-11-2020 15:28:48 CDT by Derrell Abdalla D.O.
[2020-09-11 15:40] LABS: Alanine Aminotransferase 31 U/L (4-35); Albumin Level 4.8 g/dL (3.5-5.1); Alkaline Phosphatase 83 U/L (38-126); Anion Gap 11 mmol/L (8-16); Aspartate Amino Transferase 25 U/L (14-36); Bilirubin,Total 0.3 mg/dL (0.2-1.3); Blood Urea Nitrogen 33 mg/dL (7-17); Calcium 9.4 mg/dL (8.4-10.2); Carbon Dioxide 18 mmol/L (22-30); Chloride 111 mmol/L (98-107); Estimated Glomerular Filt Rate 57; Glucose 170 mg/dL (65-105); Hematocrit 36.7 % (37.0-47.0); Hemoglobin 12.6 g/dL (12.0-15.0); Mean Corpuscular HGB Conc 34.3 g/dl (32-36); Mean Corpuscular Hemoglobin 31.2 pg (26-34); Mean Corpuscular Volume 90.8 fl (80-100); Mean Platelet Volume 8.7 fl (7.4-10.4); Platelet Count Result 333 k/mm3 (150-375); Potassium 4.5 mmol/L (3.4-5.0); Red Blood Count 4.04 M/mm3 (4.2-5.4); Sodium 140 mmol/L (137-145); White Blood Count 8.4 K/mm3 (4.5-10.0)
[2020-09-11 15:42] LABS: INR 0.9; Prothrombin Time 11.9 Seconds (11.1-14.7)
[2020-09-11 15:43] LABS: Partial Thromboplastin Time 28.7 SECONDS (22.3-36.8)
== END 2020-09-11 13:04 ==
LOC: ANHSURGERY 10-24 13:05
PROVIDERS: PCP Internal Medicine; Visit Provider Surgery
DX: Z01.818 Encounter for other preprocedural examination (principal)
CPT/HCPCS: 36415; 71046; 80053; 85027; 85610; 85730; 86850; 86900; 86901; 93005

== ENCOUNTER 2020-09-19 07:16 | Outpatient (CLI) | payer OTHER, SELFPAY ==
[2020-09-19 19:05] LABS: SARS-CoV-2 RNA PCR Negative
== END 2020-09-19 07:17 | disposition home or self-care (01) ==
LOC: ANHCOVIDDT 07:17
PROVIDERS: PCP Internal Medicine; Visit Provider Surgery
DX: Z01.812 Encounter for preprocedural laboratory examination (principal); Z20.828 Contact with and (suspected) exposure to other viral communicable diseases
CPT/HCPCS: 87635; C9803; U0003

== ENCOUNTER 2020-09-22 10:39 | Inpatient (IN) | payer OTHER, SELFPAY ==
[2020-09-11 13:56] VITALS: BP 138/67; PULSE 81; RESP 16; TEMP 36.4; O2SAT 98
[2020-09-11 14:24] VITALS: BMI 32.2
--- NOTE | 2020-09-20 10:35 | WPDANESEPPF ---
Anes - Initial Pre Proc Eval Procedure: Operation Date: 09/21/20 10:30 Proposed Procedures p Incisional Hernia Repair With Mesh, Posterior Component Separation - Hussein Jeff MD Date/Time: 09/20/20 10:35 Surgeon: Hussein Jeff MD Pre Op Diagnosis: Incisional Hernia Patient Data Age: 55 Gender: F Height: 1.65 m Weight: 87.9 kg Last Vital Signs Temp 36.4 C 09/11/20 13:56 Pulse 81 09/11/20 13:56 Resp 16 09/11/20 13:56 BP 138/67 09/11/20 13:56 Pulse Ox 98 09/11/20 13:56 Allergies Allergy/AdvReac Type Severity Reaction Status Date / Time amoxicillin Allergy Unknown RASH Verified 09/11/20 14:05 clavulanic acid Allergy Unknown RASH Verified 09/11/20 14:05 Home Medications Medication Instructions Recorded Confirmed Type ascorbate calcium (vitamin C) 500 1,000 mg PO DAILY 10/19/19 09/11/20 History mg tablet ezetimibe 10 mg tablet 10 mg PO HS 10/19/19 09/11/20 History losartan 25 mg tablet 25 mg PO HS 10/19/19 09/11/20 History omeprazole 40 mg capsule,delayed 40 mg PO QAM 10/19/19 09/11/20 History release pravastatin 40 mg tablet 40 mg PO HS 10/19/19 09/11/20 History sertraline 100 mg tablet 100 mg PO HS 10/19/19 09/11/20 History insulin glargine 100 unit/mL 40 unit SUB-Q BID ml 02/21/20 09/11/20 History subcutaneous solution linagliptin 2.5 mg-metformin 1,000 1 tablet PO HS tablet 03/06/20 09/11/20 History mg tablet acetaminophen 500 mg PO Q6H PRN 09/11/20 09/11/20 History xvcxdqi-yjbmaltfchlpb-easoflqf 2 tablet PO Q4-6H PRN 09/11/20 09/11/20 History [Excedrin Migraine] clonazepam 0.5 mg PO BID 09/11/20 09/11/20 History cyanocobalamin (vitamin B-12) 1,000 mcg PO DAILY 09/11/20 09/11/20 History [Vitamin B-12] duloxetine 30 mg PO QAM 09/11/20 09/11/20 History ergocalciferol (vitamin D2) 50,000 unit PO MONTHLY 09/11/20 09/11/20 History ferrous fumarate 324 mg PO HS 09/11/20 09/11/20 History ECG: Date of Service: 09/11/20 Procedure(s): CA 12 lead EKG Accession Number(s): [id number] cc: ~ Measurements Intervals [place] Rate: 77 P: 47 [place]: 166 QRS: -14 QRSD: 100 T: 37 QT: 383 QTc: 434 Interpretive Statements SINUS RHYTHM BORDERLINE R WAVE PROGRESSION, ANTERIOR LEADS BASELINE ARTIFACT- AVF BORDERLINE ECG Electronically Signed On 09-11-2020 15:28:48 CDT by Derrell Abdalla D.O. Dictated By: Derrell Abdalla DO 09/11/20 1543 Other Studies: echo 04/2019 - nlvsf, ef 65%, mild concentric lvh, grade 2 diastolic dysfunction. no valvular abnormalities Patient hx anesthesia problems: none Family hx anesthesia problems: none PMFSH Past Medical History Medical History Anemia Anxiety Cancer Depression Fibromyalgia High cholesterol History of blood clots History of renal cell carcinoma HTN (hypertension) IDDM (insulin dependent diabetes mellitus) Incisional hernia Morbid obesity Nausea and vomiting UMU (obstructive sleep apnea) Portal vein thrombosis Rectal prolapse Right-sided thoracic back pain Smoker Surgical History Surgical History H/O: hysterectomy History of back surgery History of History of cholecystectomy History of colonoscopy History of nephrectomy History of right hemicolectomy hand access laparoscopic, right hemicolectomy open left colectomy with ileo sigmoid anastomosis, takedown splenic flexure, small-bowel resection with anastomosis x2 12/08/19 Hx of tonsillectomy Family History Family History Mother Hypertension Sibling Lung cancer Colon polyp Unknown Diabetes mellitus Cerebrovascular accident Hypertension Soci
--- NOTE | 2020-09-20 17:09 | PM.IMHP ---
H&P: HPI History of Present Illness Date/Time: 09/20/20 17:09 Chief complaint: Incisional Hernia Narrative: Alice Connor is a 55 year old female With insulin-dependent diabetes and hypertension. She was found by colonoscopy to have several different polyps of the ascending colon and the transverse colon. This was at the end of 2018. In November of 2019 she was taken to surgery. She had essentially a total abdominal colectomy although the entire sigmoid colon and some of the descending colon were left in place. Pathology showed no evidence of cancer. This surgery was very difficult and took over 5-1/2 hours. The patient postoperatively had problems with both a wound infection as well as colitis. She was continued to be seen in the office until nearly the end of February. She returned to the office in June. She had developed incisional hernias primarily of the upper abdomen. CT scan of the chest abdomen and pelvis was reviewed. Widest defect is about 10 cm by my review. After thorough discussion and being prepared for surgery, she is taken to surgery now for incisional hernia repair with mesh, bilateral transversus abdominis myofascial flap advancement is planned as well. Review of Systems Review of Systems: All systems reviewed & are unremarkable except as noted in HPI and below Constitutional: Constitutional: Denies headache(s) ENT: Denies headache(s) Cardiovascular: Cardiovascular: Denies chest pain and Denies dyspnea Respiratory: Respiratory: Denies cough and Denies dyspnea Gastrointestinal: Gastrointestinal: Denies bloating, Denies constipation and Denies nausea Integumentary/Breasts: Skin/Breast: Denies lesions and Denies rash Neurologic: Denies confusion and Denies headache(s) Psychiatric: Psychiatric: Denies confusion [facility] Past Medical History Medical History Anemia Anxiety Cancer Depression Fibromyalgia High cholesterol History of blood clots History of renal cell carcinoma HTN (hypertension) IDDM (insulin dependent diabetes mellitus) Incisional hernia Morbid obesity Nausea and vomiting UMU (obstructive sleep apnea) Portal vein thrombosis Rectal prolapse Right-sided thoracic back pain Smoker Surgical History Surgical History H/O: hysterectomy History of back surgery History of History of cholecystectomy History of colonoscopy History of nephrectomy History of right hemicolectomy hand access laparoscopic, right hemicolectomy open left colectomy with ileo sigmoid anastomosis, takedown splenic flexure, small-bowel resection with anastomosis x2 12/08/19 Hx of tonsillectomy Family History Family History Mother Hypertension Sibling Lung cancer Colon polyp Unknown Diabetes mellitus Cerebrovascular accident Hypertension Social History Social History Smoking packs per day: 0.5 Smoking cigarettes per day: 10.0 Years smoked: 28 Smoking pack-years: 14.00 Smoking status: Former smoker Tobacco type: cigarettes Second hand tobacco smoke exposure: Yes Smoking end date: 08/25/20 Alcohol intake: former Substance use: never Substance use type: does not use Gender identity (if verbalized by the patient): Female Spiritual care concerns: No Agree to blood products: Yes Meds Home Medications and Allergies Home Medications Medication Instructions Recorded Confirmed Type ascorbate calcium (vitamin C) 500 1,000 mg PO DAILY 10/19/19 09/11/20 History mg tablet ezetimibe 10 mg tablet 10 mg PO HS 10/19/19 09/11/20 History losartan 25 mg tablet 25 mg PO HS 10/19/19 09/11/20 History omeprazole 40 mg capsule,delayed 40 mg PO QAM 10/19/19 09/11/20 History release pravastatin 40 mg tablet 40 mg PO HS 10/19/19 09/11/20 History sertraline 100 mg tablet 100 mg PO HS 10/19/19 09/11/20 History in
[2020-09-21] VITALS (15 sets, daily range): BP systolic 100–148; BP diastolic 47–81; PULSE 67–100; RESP 12–20; TEMP 35.7–36.7; O2SAT 97–100
--- NOTE | 2020-09-21 08:17 | WPDHPUPDATE1 ---
History and Physical Update Update Date/Time: 09/21/20 08:17 History and Physical has been reviewed, including an updated exam of the patient. There are NO changes in the patient's condition. Risks, benefits, and alternatives have been discussed and questions answered. Patient agrees to proceed with procedure.
[2020-09-21] MEDS: ACETAMINOPHEN 500 MG TABLET 1000 MG PO (09:00)
[2020-09-21] MEDS: KETOROLAC 15 MG/ML VIAL (*BKC) IV PUSH (09:06)
[2020-09-21] MEDS: LACTATED RINGERS 1,000 ML 30 ML IV CONT ×2 (09:07→15:43)
[2020-09-21 09:16] LABS: Glucose Point of Care 75 (65-105)
[2020-09-21] MEDS: ceFAZolin 2 GM/D5W 50 ML 2 GM/50 ML BAG IVPB (10:35)
--- NOTE | 2020-09-21 12:07 | WPDANESEPN ---
Anes - Epidural Procedure Note Date/Time: 09/21/20 12:07 Consent: I have discussed with the patient/family/POA, the placement of an epidural catheter and the use of epidural narcotic/local anesthetic for labor analgesia and/or postoperative pain management, including associated potential risks, benefits, complications and side effects. I have discussed alternative methods of labor analgesia and/or postoperative pain management. The patient/family/POA, understand(s) and wish(es) to proceed with epidural narcotic/local anesthetic for labor analgesia and/or postoperative pain management. Time-Out: A pre-procedural Time-Out was completed immediately before starting the procedure and confirmed: Patient Identification, Site, Procedure, Patient Position and the Availability of Requisite Equipment. Epidural Insertion Note Patient position: sitting Skin prep: chlorhexidine and sterile drape Needle: 18g Tuohy-Schliff Catheter: 20g Unstyleted Technique: Loss of resistance. Level of insertion: L2/3 Length in epidural space (cm): 5 (cm) Skin anesthesia: lidocaine 1% Test dose: 1.5% Lidocaine with [id number] Epi (5cc), negative for subarachnoid Inj and negative for intravascular Inj Observations: tolerated well Complications: none
[2020-09-21] MEDS: ceFAZolin SODIUM 1 GM VIAL IV PUSH (14:29)
--- NOTE | 2020-09-21 15:51 | PM.PROC ---
Procedure Note - Detailed Date of procedure: 09/21/20 Pre-op diagnosis: Incisional Hernia Multiple incisional hernias Post-op diagnosis: same Procedure performed: Repair multiple incisional hernias with mesh, bilateral transversus abdominis myofascial flap advancement, 6 cm on the left, 5 cm on the right Description of procedure: The patient was taken to surgery and induced into general anesthesia. Mitchell catheter was placed. Epidural catheter had been placed in the preoperative holding area. The abdomen was prepped and draped. The old midline scar was excised completely. The large upper abdominal hernia was easily noted. The hernia sac was freed from the subcutaneous on the patient's left side. The hernia sac was opened. We took down some omental adhesions to the inside of the hernia sac and then divided some of the fascia both above and below the hernia. Additional intra-abdominal adhesions on both the left and the right side were taken down. A blue towel was placed in the abdomen. This covered all of the viscera. I started on the patient's left. I opened the posterior rectus fascia as far medial as possible. I established a plane at the medial edge of the posterior rectus fascia. I then dissected the posterior rectus fascia off the rectus muscle in the area of the incision. The patient has had multiple previous surgeries. There was full-thickness abdominal wall inflammation in the lower half of the abdomen on the left side. There was difficult inflammation and it made the dissection of the rectus muscle from the fascia much more bloody and challenging. Once the posterior rectus fascia had been dissected laterally as far as the lateral border of the rectus abdominis muscle, I extended this dissection cephalad up to the area of the xiphoid process. This involved dividing the medial most edge of the posterior rectus fascia to this extent. I then freed the posterior rectus fascia from the rectus abdominis muscle in the upper abdomen. In the lower abdomen I freed the peritoneum from the anterior abdominal wall and dissected as far distal as the pubis. I was able to extend this dissection beyond the pubis. The dense abdominal wall inflammation was still noted just above the semi circular line extending both in the area of the rectus abdominis muscle as well as laterally. I started the left-sided transversus abdominis release under the left costal margin. The transversus abdominis muscle was able to be divided there fairly easily. I used divided it over a clamp. As we encountered the abdominal wall below the rib I stayed medial to the lateral border of the rectus muscle so as not to interrupt the neurovascular bundle to the rectus. I also divided the transversus abdominis muscle over a clamp here. Unfortunately when I got in the area of the severe inflammation the adhesions were quite difficult and some holes were made in the peritoneum. Eventually I dissected the transversus abdominis plane all the way to the posterior axillary line the entire length of the left side of the abdomen. This was bloody in the area of the abdominal wall inflammation in the left side of the abdomen. Much of the blood loss occurred during this dissection. Eventually, however, the transversus abdominis release was completed and was is extensive a release as I could make. I then used 3 0 Vicryl suture and used interrupted as well as running suture to close the peritoneal defects. Once this was completed, I checked for be any bleeders. There were none. The extent of dissection appeared to be quite adequate. I then changed sides with the [employer] sports assistant. On the patient's right-sided went ahead and excised the hernia sac dissecting in again free from the subcutaneous before excising it. In similar fashion, I opened the posterior rectus sheath at its medial most edge. This was extended the length of the wound. I then dissected the posterior rectus sheath off the rectus muscle. There w
--- NOTE | 2020-09-21 17:24 | PC.NURSE ---
This patient, Alice Connor, was admitted to 2 Medical Room 260-. Patient/family oriented to hospital policies and general routines including ID bracelet, bed and alarms, visiting hours, pain management, procedures, bathroom and other care routines, personal items, smoking policy, room service/diet, and visiting hours. Information on how to activate the Rapid Response Team has been discussed. Patient/Family are encouraged to report perceived risks to care and to ask questions if they do not understand what they are told or what they should do.
[2020-09-21] MEDS: LACTATED RINGERS 1,000 ML 100 ML IV CONT (18:10)
[2020-09-21] MEDS: clonazePAM (*CRX) 0.5 MG TABLET PO (18:11)
[2020-09-21 18:29] LABS: Glucose Point of Care 133 (65-105)
--- NOTE | 2020-09-21 18:33 | PC.NURSE ---
Called Angelita FOX in regards to the patient having an order for Lovenox in the morning. Per the SHEET METAL LAYOUT MECHANIC hold Lovenox in the morning and contact Dr. Jeff in the morning to clarify if he wishes for the Lovenox to be given.
[2020-09-21 19:26] LABS: Estimated CRCL calculation 67 ml/min; Estimated Glomerular Filt Rate > 60
[2020-09-21] MEDS: diphenhydrAMINE HCl INJ 50 MG/ML VIAL 12.5 MG IV PUSH (20:02)
[2020-09-21] MEDS: SENNA/DOCUSATE SODIUM TABLET 2 TAB PO (21:39)
[2020-09-21] MEDS: SERTRALINE HCL 50 MG TABLET 100 MG PO (21:39)
[2020-09-21 21:49] LABS: Glucose Point of Care 176 (65-105)
[2020-09-22] VITALS (8 sets, daily range): BP systolic 100–111; BP diastolic 49–52; PULSE 78–88; RESP 15–20; TEMP 36–37.2; O2SAT 85–98; BMI 33.3
--- NOTE | 2020-09-22 01:27 | PC.NURSE ---
Angelita FOX notified of patient low blood pressure 92/47 auto cuff and 104/52 manual. No orders received. Clarification was received regarding changing of medication, including when new bag of medication should be hung, and how to switch them in epidural pump. She has offered to come assist if we encounter any problems when hanging new fentanyl bag.
[2020-09-22] MEDS: LACTATED RINGERS 1,000 ML 100 ML IV CONT ×2 (03:21→14:46)
[2020-09-22] MEDS: ONDANSETRON INJ 4 MG/2 ML VIAL IV PUSH (05:39)
[2020-09-22 05:43] LABS: Hematocrit 28.9 % (37.0-47.0); Hemoglobin 9.6 g/dL (12.0-15.0); Mean Corpuscular HGB Conc 33.2 g/dl (32-36); Mean Corpuscular Hemoglobin 31.5 pg (26-34); Mean Corpuscular Volume 94.8 fl (80-100); Mean Platelet Volume 8.7 fl (7.4-10.4); Platelet Count Result 250 k/mm3 (150-375); Red Blood Count 3.05 M/mm3 (4.2-5.4); White Blood Count 8.9 K/mm3 (4.5-10.0)
[2020-09-22 05:49] LABS: Anion Gap 6 mmol/L (8-16); Blood Urea Nitrogen 22 mg/dL (7-17); Carbon Dioxide 28 mmol/L (22-30); Chloride 101 mmol/L (98-107); Estimated CRCL calculation 61 ml/min; Estimated Glomerular Filt Rate 57; Glucose 79 mg/dL (65-105); Potassium 4.4 mmol/L (3.4-5.0); Sodium 135 mmol/L (137-145)
--- NOTE | 2020-09-22 06:27 | PC.NURSE ---
Radha cazares RN from OB came to floor to assist with switching fentanyl cartridge in epidural pump. Elaine Terrazas cosigned medication admin. Pump settings unchanged and locked.
[2020-09-22] MEDS: SODIUM CHLORIDE 0.9% IV 1,000 ML 999 ML IV CONT (07:17)
[2020-09-22 07:54] LABS: Glucose Point of Care 78 (65-105)
[2020-09-22] MEDS: polyethylene glycoL 3350 17 GM POWD.PACK PO (08:43)
[2020-09-22] MEDS: clonazePAM (*CRX) 0.5 MG TABLET PO ×2 (08:43→16:56)
[2020-09-22] MEDS: diphenhydrAMINE HCl INJ 50 MG/ML VIAL 12.5 MG IV PUSH (08:43)
[2020-09-22] MEDS: PANTOPRAZOLE 40 MG TABLET PO (08:43)
[2020-09-22] MEDS: DULoxetine HCL 30 MG CAPSULE.DR PO (08:43)
--- NOTE | 2020-09-22 10:26 | PC.NURSE ---
Call to anesthesiology in regards to the patients order for Lovenox. Informed the RETAIL GROCER that per Dr. Jeff okay to administer the Lovenox injection at this time and to continue to the injection daily. This nurse asked the RETAIL GROCER about the possibility of when the epidural would be removed per the anesthesiology department that epidural typically stays in place for 3 days and then the decision for removal would be up to Dr. Jeff and the patient as far as starting on a different form of pain control. Also clarified with the RETAIL GROCER that we are only allowed to change the fentanyl bag but only the anesthesiologist can adjust the dosing such as increasing, decreasing or stopping the medication if not in the event of an emergency. Will also contact Dr. Jeff in regards to the patients ability to perform activities or turn and positions. RETAIL GROCER's do not have any say on the activity level or how to prevent sores on the patient.
[2020-09-22 11:46] LABS: Glucose Point of Care 151 (65-105)
--- NOTE | 2020-09-22 12:11 | PM.IMCN ---
Assessment and Plan Assessment and plan (1) Incisional hernia: Code(s): K43.2 - Incisional hernia without obstruction or gangrene Status: Chronic Assessment and Plan: Alice Connor is a 55 year old female the past medical history of diabetes hypertension patient had a complaint of multiple hernia and patient was seen by her surgeon Dr. Jeff, she was taken to OR on 09/21 and had repair of multiple incisional hernias with mesh, bilateral transversus abdominis myofascial flap advancement, 6 cm on the left, 5 cm on the right. Today on 09/22 patient complains of abdominal pain patient is not passing any gas and no BM, denies any fever or chills, we have been consulted to manage patient's diabetes and hypertension while in the hospital, currently patient is on high-dose sliding scale, will monitor patient blood sugar and adjust her medication as needed, patient blood pressure is soft as patient is not drinking as much, will continue to monitor patient and plan accordingly. Thank you for consulting us for medical management, we will follow the patient with you, if you have any question please feel free to call us. 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 HPI Data of Consult Consult date: 09/22/20 Requesting Physician: Hussein Jeff MD Primary Care Provider: Nico Ibarra MD Consult Narrative Narrative: Alice Connor is a 55 year old female the past medical history of diabetes hypertension patient had a complaint of multiple hernia and patient was seen by her surgeon Dr. Jeff, she was taken to OR on 09/21 and had repair of multiple incisional hernias with mesh, bilateral transversus abdominis myofascial flap advancement, 6 cm on the left, 5 cm on the right. Today on 09/22 patient complains of abdominal pain patient is not passing any gas and no BM, denies any fever or chills, we have been consulted to manage patient's diabetes and hypertension while in the hospital, currently patient is on high-dose sliding scale, will monitor patient blood sugar and adjust her medication as needed, patient blood pressure is soft as patient is not drinking as much, will continue to monitor patient and plan accordingly. Thank you for consulting us for medical management, we will follow the patient with you, if you have any question please feel free to call us. Review of Systems Review of Systems: All systems reviewed & are unremarkable except as noted in HPI and below PMFSH Past Medical History Medical History Anemia Anxiety Cancer Depression Fibromyalgia High cholesterol History of blood clots History of renal cell carcinoma HTN (hypertension) IDDM (insulin dependent diabetes mellitus) Incisional hernia Morbid obesity Nausea and vomiting UMU (obstructive sleep apnea) Portal vein thrombosis Rectal prolapse Right-sided thoracic back pain Smoker Surgical History Surgical History H/O: hysterectomy History of back surgery History of History of cholecystectomy History of colonoscopy History of nephrectomy History of right hemicolectomy hand access laparoscopic, right hemicolectomy open left colectomy with ileo sigmoid anastomosis, takedown splenic flexure, small-bowel re
[2020-09-22] MEDS: ENOXAPARIN 40 MG/0.4 ML SYRINGE SUB-Q (13:01)
--- NOTE | 2020-09-22 14:27 | WPDANESPN ---
Anes - Prog Note Post-Op Date/Time: 09/22/20 14:27 Cardiovascular status: normal Respiratory status: normal Airway patency: baseline Mental status: baseline Post-Op hydration status: normal Vital Signs: Last Vital Signs Temp 98.9 F 09/22/20 10:00 Pulse 85 09/22/20 10:00 Resp 20 09/22/20 10:00 BP 100/50 L 09/22/20 10:00 Pulse Ox 95 09/22/20 10:00 Pain Score (VAS): 12/03 I/O: Intake & Output 09/21/20 09/22/20 09/22/20 23:59 07:59 15:59 Intake Total 1040 1300 240 Output Total 215 322 90 Balance 825 978 150 Laboratory Tests 09/22/20 05:16 09/22/20 05:16 09/21/20 09/21/20 09/21/20 17:43 18:09 19:04 WBC RBC Hgb Hct MCV MCH MCHC RDW Plt Count MPV Sodium Potassium Chloride Carbon Dioxide Anion Gap BUN Creatinine 0.90 Estim Creat Clear Calc 67 Estimated GFR > 60 Glucose POC Capillary Glucose 133 H Hemoglobin A1c 7.0 H Calcium 09/21/20 09/22/20 09/22/20 21:46 05:16 05:16 WBC 8.9 RBC 3.05 L Hgb 9.6 L D Hct 28.9 L MCV 94.8 MCH 31.5 MCHC 33.2 RDW 13.0 Plt Count 250 MPV 8.7 Sodium 135 L Potassium 4.4 Chloride 101 Carbon Dioxide 28 Anion Gap 6 L BUN 22 H D Creatinine 1.00 Estim Creat Clear Calc 61 Estimated GFR 57 L Glucose 79 POC Capillary Glucose 176 H Hemoglobin A1c Calcium 8.0 L 09/22/20 09/22/20 07:50 11:40 WBC RBC Hgb Hct MCV MCH MCHC RDW Plt Count MPV Sodium Potassium Chloride Carbon Dioxide Anion Gap BUN Creatinine Estim Creat Clear Calc Estimated GFR Glucose POC Capillary Glucose 78 151 H Hemoglobin A1c Calcium Post-procedural complaints: none Patient Feedback: Patient satisfied with anesthetic care.
--- NOTE | 2020-09-22 15:09 | PC.NURSE ---
Addendum entered by Yahaira Espinosa RN 09/22/20 16:22: This nurse clarified with the anesthesiologist that a 2cc bolus was given to the patient with a continued rate of 8mL/hr. This nurse called and informed the HEAT TREATING FURNACE TENDER that the patient is rating her pain at a 3 if moving slightly and also if just laying in the bed at this time. Current blood pressure is 107/51. Per anesthesiology continue the patient on a rate of 8mL/hr and monitor neurovascular checks at this time, and due to the patients low blood pressure the epidural rate will not be increased at this time. Original Note: Anesthesiology came into assess the patient at this time. Per the HEAT TREATING FURNACE TENDER due to the patient not having adequate pain control and being able to get up into a chair at this time. The HEAT TREATING FURNACE TENDER changed the cartridge for the epidural and increased the current dose from 8mL/hr to 10mL/hr. Per the HEAT TREATING FURNACE TENDER monitor the patient and reassess the pain control in one hour along with a blood pressure to ensure the patient can continue on 10mL/hr or if the dosage needs to be readjusted again.
--- NOTE | 2020-09-22 16:27 | PC.NURSE ---
As of 1441 epidural cartridge was changed with a 2cc bolus given by Guille the PRODUCTION MACHINE OPERATOR and to continue to monitor BP with no rate change. Charge nurse cosigned and the PRODUCTION MACHINE OPERATOR locked pump at this time
[2020-09-22 17:53] LABS: Glucose Point of Care 116 (65-105)
--- NOTE | 2020-09-22 18:46 | PM.PNGS ---
Progress Note: A&P Assessment and Plan (1) Incisional hernia: Code(s): K43.2 - Incisional hernia without obstruction or gangrene Status: Chronic Assessment and Plan: doing okay postop day 1. Following a difficult incisional hernia repair with transversus abdominis myofascial flap advancement. Will start IV Ibuprofen on a scheduled dose in addition to her epidural pain management. has been getting up in a chair. Will go ahead and advance to full liquids tomorrow. (2) IDDM (insulin dependent diabetes mellitus): Code(s): E11.9 - Type 2 diabetes mellitus without complications; Z79.4 - alf (current) use of insulin Status: Chronic Assessment and Plan: Hospitalist's help in management much appreciated (3) HTN (hypertension): Qualifiers: Hypertension type: essential hypertension Qualified Code(s): I10 - Essential (primary) hypertension Code(s): I10 - Essential (primary) hypertension Status: Chronic (4) Anemia: Qualifiers: Anemia type: unspecified type Qualified Code(s): D64.9 - Anemia, unspecified Code(s): D64.9 - Anemia, unspecified Status: Acute Assessment and Plan: some degree of chronic anemia and dilutional effects but did have about 250 cc blood loss during surgery as the operation was difficult and long. Subjective Subjective Date/Time Seen: 09/22/20 18:46 Post Op day: 1 Patient reports: still having pain (Warm with movement then when sitting. Upper part of incision mostly), tolerating liquids well, no flatus and no bowel movement Review of Systems Review of Systems: All systems reviewed & are unremarkable except as noted in HPI and below Constitutional: Constitutional: Denies headache(s) Cardiovascular: Cardiovascular: Denies chest pain and Denies dyspnea Respiratory: Respiratory: Denies cough and Denies dyspnea Gastrointestinal: Gastrointestinal: Reports as per HPI Neurologic: Denies confusion and Denies headache(s) Exam Const: General: comfortable and no acute distress; No confusion Orientation/consciousness: patient oriented x3 and No confusion Resp: Effort & Inspection: normal respiratory effort Auscultation: clear to auscultation bilaterally Cardio: Rate: regular rate Rhythm: regular rhythm GI: Inspection: non-distended, incision ( dressing dry and intact, serosanguineous fluid per LEONDIAS's) and obesity GI Palp: Yes Soft to palpation, Yes Tenderness to palpation present (GI), No Guarding due to palpation present (GI) and No Rebound tenderness present Auscultation: normal bowel sounds Neuro: General: patient oriented x3, no focal motor deficits and No confusion Extrem: General: no calf tenderness and no edema Psych: Affect: normal affect Insight: Good insight present (Psych) Judgement: Good judgement present (Psych) Objective Data Vital Signs Vital Signs: Vital Signs - 24 hr 09/21/20 18:49 09/21/20 19:38 09/21/20 21:00 Temperature 35.7 C L Pulse Rate 100 Respiratory Rate 16 20 14 Blood Pressure 108/47 L Pulse Oximetry 98 100 09/22/20 02:00 09/22/20 02:56 09/22/20 04:00 Temperature 36.9 C 36.0 C L Pulse Rate 82 78 Respiratory Rate 18 15 18 Blood Pressure 104/52 L 102/50 L Pulse Oximetry 94 96 94 09/22/20 08:00 09/22/20 10:00 09/22/20 14:42 Temperature 37.2 C Pulse Rate 82 85 Respiratory Rate 20 16 Blood Pressure 100/50 L Pulse Oximetry 95 98 Intake/Output Intake/Output: Intake & Output 09/19/20 09/20/20 09/21/20 09/22/20 23:59 23:59 23:59 23:59 Intake Total 1040 2540 Output Total 215 492 Balance 825 2048 Meds/Results Medications: Active Medications Generic Name Dose Route Start Last Admin Trade Name Freq PRN Reason Stop Dose Admin Clonazepam 0.5 mg 09/21/20 17:14 09/22/20 16:56 Clonazepam (*Crx) 0.5 Mg Tablet PO 0.5 mg BID RADHA Administration Dextrose 12.5 gm 09/21/20 17:14 Dextrose 50% 25 Gm/50 Ml Syringe
[2020-09-22] MEDS: IBUPROFEN IV 800 MG/200 ML 800 MG/200 ML BAG 400 MG IVPB (19:47)
[2020-09-22] MEDS: SERTRALINE HCL 50 MG TABLET 100 MG PO (19:48)
[2020-09-22] MEDS: SENNA/DOCUSATE SODIUM TABLET 2 TAB PO (19:48)
[2020-09-23] VITALS (10 sets, daily range): BP systolic 103–114; BP diastolic 45–54; PULSE 77–83; RESP 16–20; TEMP 36.2–37.2; O2SAT 90–97
[2020-09-23] MEDS: IBUPROFEN IV 800 MG/200 ML 800 MG/200 ML BAG 400 MG IVPB ×4 (00:12→17:04)
[2020-09-23] MEDS: LACTATED RINGERS 1,000 ML 100 ML IV CONT (03:37)
[2020-09-23 07:09] LABS: Hematocrit 25.5 % (37.0-47.0); Hemoglobin 8.4 g/dL (12.0-15.0); Mean Corpuscular HGB Conc 32.9 g/dl (32-36); Mean Corpuscular Hemoglobin 31.9 pg (26-34); Mean Platelet Volume 9.1 fl (7.4-10.4); Platelet Count Result 208 k/mm3 (150-375); Red Blood Count 2.63 M/mm3 (4.2-5.4); Red Cell Distribution Width 13.1 % (11.5-14.5); White Blood Count 8.8 K/mm3 (4.5-10.0)
[2020-09-23 07:36] LABS: Anion Gap 3 mmol/L (8-16); Blood Urea Nitrogen 20 mg/dL (7-17); Calcium 7.8 mg/dL (8.4-10.2); Carbon Dioxide 29 mmol/L (22-30); Chloride 103 mmol/L (98-107); Estimated CRCL calculation 61 ml/min; Estimated Glomerular Filt Rate 57; Glucose 108 mg/dL (65-105); Magnesium 1.5 mg/dL (1.6-2.3); Potassium 3.8 mmol/L (3.4-5.0); Sodium 135 mmol/L (137-145)
--- NOTE | 2020-09-23 07:54 | PM.PNGS ---
Progress Note: A&P Assessment and Plan (1) Incisional hernia: Code(s): K43.2 - Incisional hernia without obstruction or gangrene Status: Chronic Assessment and Plan: Pain control better today. Will start dressing changes. Advance to full liquids today. DC Mitchell catheter and start to ambulate. She is very positive fluid balance will start some Bumex and stop IV fluids. Overall doing quite well. (2) Anemia: Qualifiers: Anemia type: unspecified type Qualified Code(s): D64.9 - Anemia, unspecified Code(s): D64.9 - Anemia, unspecified Status: Acute Assessment and Plan: No evidence of active bleeding and patient has been getting a lot of IV fluids. Suspect this is chronic but with surgical losses as well. Continue to follow. (3) IDDM (insulin dependent diabetes mellitus): Code(s): E11.9 - Type 2 diabetes mellitus without complications; Z79.4 - half-way (current) use of insulin Status: Chronic Assessment and Plan: Appreciate hospitalist management. (4) HTN (hypertension): Qualifiers: Hypertension type: essential hypertension Qualified Code(s): I10 - Essential (primary) hypertension Code(s): I10 - Essential (primary) hypertension Status: Chronic Subjective Subjective Date/Time Seen: 09/23/20 07:54 Post Op day: 2 Patient reports: pain is less, tolerating liquids well, no flatus, no bowel movement and afebrile Exam Const: General: comfortable and no acute distress; No confusion Orientation/consciousness: patient oriented x3 and No confusion GI: Inspection: non-distended and incision (Dressing dry and intact, serosanguineous fluid in LEONIDAS drains) GI Palp: Yes Soft to palpation, Yes Tenderness to palpation present (GI), No Guarding due to palpation present (GI) and No Rebound tenderness present Auscultation: normal bowel sounds Neuro: General: patient oriented x3, no focal motor deficits and No confusion Extrem: General: no calf tenderness and no edema Psych: Affect: normal affect Insight: Good insight present (Psych) Judgement: Good judgement present (Psych) Objective Data Vital Signs Vital Signs: Vital Signs - 24 hr 09/22/20 08:00 09/22/20 10:00 09/22/20 14:42 Temperature 37.2 C Pulse Rate 82 85 Respiratory Rate 20 16 Blood Pressure 100/50 L Pulse Oximetry 95 98 09/22/20 20:00 09/22/20 20:39 09/23/20 00:00 Temperature 36.8 C 36.2 C L Pulse Rate 84 77 Respiratory Rate 16 16 Blood Pressure 111/49 L 113/48 L Pulse Oximetry 93 85 L 96 09/23/20 01:27 Temperature Pulse Rate Respiratory Rate 18 Blood Pressure Pulse Oximetry 97 Intake/Output Intake/Output: Intake & Output 09/20/20 09/21/20 09/22/20 09/23/20 23:59 23:59 23:59 23:59 Intake Total 1040 2940 1400 Output Total 215 1742 10 Balance 825 1198 1390 Meds/Results Medications: Active Medications Generic Name Dose Route Start Last Admin Trade Name Freq PRN Reason Stop Dose Admin Bumetanide 2 mg 09/23/20 07:51 Bumetanide Inj 1 Mg/4 Ml Vial IV PUSH 09/23/20 07:52 ONCE ONE Clonazepam 0.5 mg 09/21/20 17:14 09/22/20 16:56 Clonazepam (*Crx) 0.5 Mg Tablet PO 0.5 mg BID RADHA Administration Dextrose 12.5 gm 09/21/20 17:14 Dextrose 50% 25 Gm/50 Ml Syringe IV PUSH PRN PRN Hypoglycemia Protocol Diphenhydramine HCl 12.5 mg 09/21/20 12:01 09/22/20 08:43 Diphenhydramine Hcl Inj 50 Mg/Ml Vial IV PUSH 12.5 mg Q4H PRN Administration Itching Diphenhydramine HCl 25 mg 09/21/20 17:14 Diphenhydramine Hcl Inj 50 Mg/Ml Vial IV PUSH Q6H PRN Itching Duloxetine HCl 30 mg 09/22/20 09:00 09/22/20 08:43 Duloxetine Hcl 30 Mg Capsule.Dr PO 30 mg QAM RADHA Administration Enoxaparin Sodium 40 mg 09/22/20 09:00 09/22/20 13:01 Enoxaparin 40 Mg/0.4 Ml Syringe SUB-Q 40 mg DAILY RADHA Administration Glucagon 1 mg 09/21/20 17:14 Glucagon For Inj 1 Mg Vi
[2020-09-23 08:04] LABS: Glucose Point of Care 103 (65-105)
[2020-09-23] MEDS: PANTOPRAZOLE 40 MG TABLET PO (08:43)
[2020-09-23] MEDS: DULoxetine HCL 30 MG CAPSULE.DR PO (08:43)
[2020-09-23] MEDS: clonazePAM (*CRX) 0.5 MG TABLET PO ×2 (08:43→16:58)
[2020-09-23] MEDS: MAGNESIUM SULF 2 GM/WATER 50ML 2 GM/50 ML BAG IVPB (08:43)
[2020-09-23] MEDS: polyethylene glycoL 3350 17 GM POWD.PACK PO (08:44)
[2020-09-23] MEDS: ENOXAPARIN 40 MG/0.4 ML SYRINGE SUB-Q (08:44)
[2020-09-23] MEDS: POTASSIUM CHLORIDE 20 MEQ TABLET.ER 40 MEQ PO ×2 (10:14→16:59)
[2020-09-23] MEDS: BUMETANIDE INJ 1 MG/4 ML VIAL 2 MG IV PUSH (10:14)
[2020-09-23 11:51] LABS: Glucose Point of Care 213 (65-105)
[2020-09-23] MEDS: INSULIN ASPART (*BKC) 100 UNITS/ML SUB-Q ×2 (11:51→16:56)
--- NOTE | 2020-09-23 12:18 | PM.IMPN ---
Progress Note: A&P Assessment and Plan (1) Incisional hernia: Code(s): K43.2 - Incisional hernia without obstruction or gangrene Status: Chronic Assessment and Plan: 09/23/20 12:18 Alice Connor is a 55 year old female the past medical history of diabetes hypertension patient had a complaint of multiple hernia and patient was seen by her surgeon Dr. Jeff, she was taken to OR on 09/21 and had repair of multiple incisional hernias with mesh, bilateral transversus abdominis myofascial flap advancement, 6 cm on the left, 5 cm on the right. Today on 09/23 patient had a BM denies any abdominal pain nausea or vomiting, patient was seen by her surgeon Dr. Jeff and advanced diet to full liquids, patient is on high dose of sliding scale, her blood sugars controlled will monitor and adjust her insulin as needed as patient is now on full liquids diet. Patient blood pressure is still soft, will hold home medication and monitor, patient had been receiving IVF and appeared volume overloaded, her surgeon started patient on bumex, patient HH is trending down most likely due to hemodilution and acute blood loose during surgery patient is clinically stable will monitor. will continue to follow the patient further recommendation to follow. (2) IDDM (insulin dependent diabetes mellitus): Code(s): E11.9 - Type 2 diabetes mellitus without complications; Z79.4 - terminal operations manager (current) use of insulin Status: Chronic Assessment and Plan: currently patient is not eating or drinking as much and on high does sliding scale will continue to monitor once clinically stable will resume patient's home regimen (3) HTN (hypertension): Qualifiers: Hypertension type: essential hypertension Qualified Code(s): I10 - Essential (primary) hypertension Code(s): I10 - Essential (primary) hypertension Status: Chronic Assessment and Plan: today patient blood pressure is soft will hold losartan and resume once patient blood pressure is trending up. Subjective Date/time seen: 09/23/20 12:18 Alice Connor is a 55 year old female the past medical history of diabetes hypertension patient had a complaint of multiple hernia and patient was seen by her surgeon Dr. Jeff, she was taken to OR on 09/21 and had repair of multiple incisional hernias with mesh, bilateral transversus abdominis myofascial flap advancement, 6 cm on the left, 5 cm on the right. Today on 09/23 patient had a BM denies any abdominal pain nausea or vomiting, patient was seen by her surgeon Dr. Jeff and advanced diet to full liquids, patient is on high dose of sliding scale, her blood sugars controlled will monitor and adjust her insulin as needed as patient is now on full liquids diet. Patient blood pressure is still soft, will hold home medication and monitor, patient had been receiving IVF and appeared volume overloaded, her surgeon started patient on bumex, patient HH is trending down most likely due to hemodilution and acute blood loose during surgery patient is clinically stable will monitor. will continue to follow the patient further recommendation to follow. Review of Systems Review of Systems: All systems reviewed & are unremarkable except as noted in HPI and below Exam Narrative: Exam Narrative: Patient is comfortable, NAD HEENT: eyes are clear and none icteric LUNGS:CTA HEART: RR S1S2 ABD: bowel sounds are faint diffusely tender Lower extremities: no edema SKIN: nonjaundiced Neuro: grossly intact. Objective Data Vital Signs Vital Signs: Vital Signs - 24 hr 09/22/20 14:42 09/22/20 20:00 09/22/20 20:39 Temperature 98.2 F Pulse Rate 84 Respiratory Rate 16 16 Blood Pressure 111/49 L Pulse Oximetry 98 93 85 L 09/23/20 00:00 09/23/20 01:27 09/23/20 09:17 Temperature 97.2 F L Pulse Rate 77 Respiratory Rate 16 18 Blood Pressure 113/48 L Pulse Oximetry 96 97 97 09/23/20 09:43 Temperature Pulse Rate
[2020-09-23 17:12] LABS: Glucose Point of Care 203 (65-105)
[2020-09-23] MEDS: SERTRALINE HCL 50 MG TABLET 100 MG PO (20:15)
[2020-09-23] MEDS: SENNA/DOCUSATE SODIUM TABLET 2 TAB PO (20:15)
[2020-09-23] MEDS: ONDANSETRON INJ 4 MG/2 ML VIAL IV PUSH (21:54)
[2020-09-23 22:06] LABS: Glucose Point of Care 199 (65-105)
[2020-09-24] VITALS (15 sets, daily range): BP systolic 112–133; BP diastolic 48–64; PULSE 75–92; RESP 16–24; TEMP 36.2–36.8; O2SAT 92–98
[2020-09-24] MEDS: IBUPROFEN IV 800 MG/200 ML 800 MG/200 ML BAG 400 MG IVPB ×3 (00:55→11:06)
--- NOTE | 2020-09-24 01:22 | PC.NURSE ---
Daylight Savings Time For Daylight Savings Time Ending in the Fall - Clocks are moved back. For Daylight Savings Time Beginning in the Spring - Clocks are moved ahead. For [facility], the time of change occurs at 0200 hrs. Time is taken from the energy conservation representative. This entry on the patient's chart recognizes the change in time reflected during documentation. Example: 2 entries for vital signs may be charted for 0200 hrs.
[2020-09-24 05:34] LABS: Hematocrit 26.1 % (37.0-47.0); Hemoglobin 8.5 g/dL (12.0-15.0); Mean Corpuscular HGB Conc 32.6 g/dl (32-36); Mean Corpuscular Hemoglobin 31.4 pg (26-34); Mean Corpuscular Volume 96.3 fl (80-100); Mean Platelet Volume 9.3 fl (7.4-10.4); Platelet Count Result 229 k/mm3 (150-375); Red Blood Count 2.71 M/mm3 (4.2-5.4); Red Cell Distribution Width 12.9 % (11.5-14.5); White Blood Count 7.6 K/mm3 (4.5-10.0)
[2020-09-24 06:00] LABS: Anion Gap 4 mmol/L (8-16); Blood Urea Nitrogen 14 mg/dL (7-17); Calcium 8.2 mg/dL (8.4-10.2); Carbon Dioxide 31 mmol/L (22-30); Chloride 103 mmol/L (98-107); Estimated CRCL calculation 56 ml/min; Estimated Glomerular Filt Rate 51; Glucose 148 mg/dL (65-105); Magnesium 1.7 mg/dL (1.6-2.3); Potassium 3.9 mmol/L (3.4-5.0); Sodium 138 mmol/L (137-145)
[2020-09-24 07:50] LABS: Glucose Point of Care 151 (65-105)
[2020-09-24] MEDS: PANTOPRAZOLE 40 MG TABLET PO (09:46)
[2020-09-24] MEDS: DULoxetine HCL 30 MG CAPSULE.DR PO (09:46)
[2020-09-24] MEDS: POTASSIUM CHLORIDE 20 MEQ TABLET.ER 40 MEQ PO ×2 (09:46→17:15)
[2020-09-24] MEDS: clonazePAM (*CRX) 0.5 MG TABLET PO ×2 (09:46→17:15)
[2020-09-24] MEDS: BUMETANIDE INJ 1 MG/4 ML VIAL 2 MG IV PUSH (10:41)
[2020-09-24 12:41] LABS: Glucose Point of Care 315 (65-105)
[2020-09-24] MEDS: INSULIN ASPART (*BKC) 100 UNITS/ML SUB-Q ×2 (12:46→17:16)
--- NOTE | 2020-09-24 14:29 | PM.IMPN ---
Progress Note: A&P Assessment and Plan (1) Incisional hernia: Code(s): K43.2 - Incisional hernia without obstruction or gangrene Status: Chronic Assessment and Plan: 09/24/20 14:29 Alice Connor is a 55 year old female the past medical history of diabetes hypertension patient had a complaint of multiple hernia and patient was seen by her surgeon Dr. Jeff, she was taken to OR on 09/21 and had repair of multiple incisional hernias with mesh, bilateral transversus abdominis myofascial flap advancement, 6 cm on the left, 5 cm on the right. today on 09/24 patient had another BM denies any abdominal pain nausea or vomiting, pateint had been on full clear liquids and today patient was seen by her surgeon Dr. Jeff and advanced to diabetes diet, patient is on high dose of sliding scale, her blood sugars controlled, will monitor and adjust her insulin as needed as patient is now on diabetes diet. Patient blood pressure is close to normal, will hold home medication and monitor, patient had been receiving IVF and appeared volume overloaded, her surgeon started patient on bumex, patient diuresing well, patient HH was trending down most likely due to hemodilution and acute blood loose during surgery now her hh is stable, patient is clinically stable will monitor. will continue to follow the patient further recommendation to follow. (2) IDDM (insulin dependent diabetes mellitus): Code(s): E11.9 - Type 2 diabetes mellitus without complications; Z79.4 - long term care social worker (current) use of insulin Status: Chronic Assessment and Plan: currently patient is not eating or drinking as much and on high does sliding scale will continue to monitor once clinically stable will resume patient's home regimen (3) HTN (hypertension): Qualifiers: Hypertension type: essential hypertension Qualified Code(s): I10 - Essential (primary) hypertension Code(s): I10 - Essential (primary) hypertension Status: Chronic Assessment and Plan: today patient blood pressure is soft will hold losartan and resume once patient blood pressure is trending up. Subjective Date/time seen: 09/24/20 14:29 Alice Connor is a 55 year old female the past medical history of diabetes hypertension patient had a complaint of multiple hernia and patient was seen by her surgeon Dr. Jeff, she was taken to OR on 09/21 and had repair of multiple incisional hernias with mesh, bilateral transversus abdominis myofascial flap advancement, 6 cm on the left, 5 cm on the right. today on 09/24 patient had another BM denies any abdominal pain nausea or vomiting, pateint had been on full clear liquids and today patient was seen by her surgeon Dr. Jeff and advanced to diabetes diet, patient is on high dose of sliding scale, her blood sugars controlled, will monitor and adjust her insulin as needed as patient is now on diabetes diet. Patient blood pressure is close to normal, will hold home medication and monitor, patient had been receiving IVF and appeared volume overloaded, her surgeon started patient on bumex, patient diuresing well, patient HH was trending down most likely due to hemodilution and acute blood loose during surgery now her hh is stable, patient is clinically stable will monitor. will continue to follow the patient further recommendation to follow. Review of Systems Review of Systems: All systems reviewed & are unremarkable except as noted in HPI and below Exam Narrative: Exam Narrative: Patient is comfortable, NAD HEENT: eyes are clear and none icteric LUNGS:CTA HEART: RR S1S2 ABD: bowel sounds are faint diffusely tender Lower extremities: no edema SKIN: nonjaundiced Neuro: grossly intact. Objective Data Vital Signs Vital Signs: Vital Signs - 24 hr 09/23/20 18:00 09/23/20 20:00 09/24/20 00:00 Temperature 98.4 F 97.9 F 97.6 F Pulse Rate 81 81 78 Respiratory Rate 16 18 24 H Blood Pressure 104/46 L 114/54
[2020-09-24] MEDS: HYDROcodone/acetaminophen (*CRX) 10-325 MG TABLET 1 TAB PO (14:47)
--- NOTE | 2020-09-24 14:57 | WPDANESPN ---
Anes - Prog Note Post-Op Date/Time: 09/24/20 14:57 Cardiovascular status: normal Respiratory status: normal Airway patency: baseline Mental status: baseline Post-Op hydration status: normal Vital Signs: Last Vital Signs Temp 36.4 C 09/24/20 14:00 Pulse 79 09/24/20 14:00 Resp 20 09/24/20 14:00 BP 121/59 L 09/24/20 14:00 Pulse Ox 92 09/24/20 14:00 Pain Score (VAS): 04/02 I/O: Intake & Output 09/24/20 09/24/20 09/24/20 00:59 07:59 15:59 Intake Total 680 Output Total 30 Balance 650 Laboratory Tests 09/24/20 04:38 09/24/20 04:38 09/23/20 09/23/20 09/24/20 16:52 21:56 04:38 WBC 7.6 RBC 2.71 L Hgb 8.5 L Hct 26.1 L MCV 96.3 MCH 31.4 MCHC 32.6 RDW 12.9 Plt Count 229 MPV 9.3 Sodium Potassium Chloride Carbon Dioxide Anion Gap BUN Creatinine Estim Creat Clear Calc Estimated GFR Glucose POC Capillary Glucose 203 H 199 H Calcium Magnesium 09/24/20 09/24/20 09/24/20 04:38 07:41 12:25 WBC RBC Hgb Hct MCV MCH MCHC RDW Plt Count MPV Sodium 138 Potassium 3.9 Chloride 103 Carbon Dioxide 31 H Anion Gap 4 L BUN 14 D Creatinine 1.10 H Estim Creat Clear Calc 56 Estimated GFR 51 L Glucose 148 H POC Capillary Glucose 151 H 315 H Calcium 8.2 L Magnesium 1.7 Post-procedural complaints: none Patient Feedback: Patient satisfied with anesthetic care.
[2020-09-24] MEDS: MORPHINE SULFATE (*CRX) 4 MG/ML INJ IV PUSH (15:23)
--- NOTE | 2020-09-24 16:07 | PM.PNGS ---
Progress Note: A&P Assessment and Plan (1) Incisional hernia: Qualifiers: Obstruction and gangrene presence: without obstruction or gangrene Qualified Code(s): K43.2 - Incisional hernia without obstruction or gangrene Code(s): K43.2 - Incisional hernia without obstruction or gangrene Status: Chronic Assessment and Plan: pain control inadequate at this time with epidural just recently removed. Will start PATIENT OFFICE REP morphine sulfate to hopefully get better pain control. Otherwise patient is doing well. Eating, diuresing, had been up earlier today. Incision healing well. (2) Smoker: Code(s): F17.200 - Nicotine dependence, unspecified, uncomplicated Status: Chronic (3) Anemia: Qualifiers: Anemia type: unspecified type Qualified Code(s): D64.9 - Anemia, unspecified Code(s): D64.9 - Anemia, unspecified Status: Acute Assessment and Plan: H&H stable (4) IDDM (insulin dependent diabetes mellitus): Code(s): E11.9 - Type 2 diabetes mellitus without complications; Z79.4 - laborer marine terminal (current) use of insulin Status: Chronic Assessment and Plan: monitoring (5) HTN (hypertension): Qualifiers: Hypertension type: essential hypertension Qualified Code(s): I10 - Essential (primary) hypertension Code(s): I10 - Essential (primary) hypertension Status: Chronic Subjective Subjective Date/Time Seen: 09/24/20 16:08 Post Op day: 3 Patient reports: still having pain (PATIENT OFFICE REP removed a short time ago and having a lot of pain), bowel movement and afebrile Interval history: has been eating well. Bowels are moving. Diuresed with Bumex yesterday. Has already had hydrocodone followed by 4 mg IV morphine and still very uncomfortable. Patient slept for about a half an hour after morphine initially given but now very uncomfortable. Exam Const: General: no acute distress and uncomfortable GI: Inspection: non-distended and incision ( Dry, intact, healing well. Serosanguineous LEONIDAS drainage) GI Palp: Yes Soft to palpation and Yes Tenderness to palpation present (GI) Auscultation: normal bowel sounds Objective Data Vital Signs Vital Signs: Vital Signs - 24 hr 09/23/20 18:00 09/23/20 20:00 09/24/20 00:00 Temperature 36.9 C 36.6 C 36.4 C Pulse Rate 81 81 78 Respiratory Rate 16 18 24 H Blood Pressure 104/46 L 114/54 L 127/62 Pulse Oximetry 95 91 96 09/24/20 01:44 CDT 09/24/20 04:00 09/24/20 10:05 Temperature 36.2 C L 36.4 C Pulse Rate 79 77 Respiratory Rate 16 22 H 16 Blood Pressure 130/52 L 131/58 L Pulse Oximetry 93 94 96 09/24/20 14:00 09/24/20 15:09 09/24/20 15:30 Temperature 36.4 C 36.5 C Pulse Rate 79 92 Respiratory Rate 20 20 Blood Pressure 121/59 L 133/60 Pulse Oximetry 92 96 98 Intake/Output Intake/Output: Intake & Output 09/21/20 09/22/20 09/23/20 09/24/20 23:59 23:59 23:59 22:59 Intake Total 1040 2940 4010 1080 Output Total 215 1742 2715 910 Balance 825 1198 1295 170 Meds/Results Medications: Active Medications Generic Name Dose Route Start Last Admin Trade Name Freq PRN Reason Stop Dose Admin Acetaminophen 500 mg 09/24/20 09:24 Acetaminophen 500 Mg Tablet PO Q6H PRN Mild Pain (1-3) or Fever Clonazepam 0.5 mg 09/21/20 17:14 09/24/20 09:46 Clonazepam (*Crx) 0.5 Mg Tablet PO 0.5 mg BID RADHA Administration Dextrose 12.5 gm 09/21/20 17:14 Dextrose 50% 25 Gm/50 Ml Syringe IV PUSH PRN PRN Hypoglycemia Protocol Diphenhydramine HCl 12.5 mg 09/21/20 12:01 09/22/20 08:43 Diphenhydramine Hcl Inj 50 Mg/Ml Vial IV PUSH 12.5 mg Q4H PRN Administration Itching Diphenhydramine HCl 25 mg 09/21/20 17:14 Diphenhydramine Hcl Inj 50 Mg/Ml Vial IV PUSH Q6H PRN Itching Duloxetine HCl 30 mg 09/22/20 09:00 09/24/20 09:46 Duloxetine Hcl 30 Mg Capsule.Dr PO 30 mg QAM RADHA Administration Enoxaparin Sodium 40 m
[2020-09-24 16:45] LABS: Glucose Point of Care 283 (65-105)
[2020-09-24] MEDS: MORPHINE SULFATE PCA (*CRX) 30 MG/30 ML SYR IV CONT (17:55)
[2020-09-24] MEDS: SODIUM CHLORIDE 0.9% IV 1,000 ML 30 ML (18:20)
[2020-09-24] MEDS: SODIUM CHLORIDE 0.9% IV 1,000 ML 30 ML IV CONT (19:20)
[2020-09-24] MEDS: SENNA/DOCUSATE SODIUM TABLET 2 TAB PO (20:02)
[2020-09-24] MEDS: SERTRALINE HCL 50 MG TABLET 100 MG PO (20:02)
[2020-09-24] MEDS: INSULIN GLARGINE (*BKC) 100 UNITS/ML 18 UNITS SUB-Q (20:05)
[2020-09-24 21:35] LABS: Glucose Point of Care 242 (65-105)
[2020-09-25] VITALS (15 sets, daily range): BP systolic 111–139; BP diastolic 50–79; PULSE 71–89; RESP 13–18; TEMP 36.3–36.9; O2SAT 88–97
[2020-09-25] MEDS: diphenhydrAMINE HCl INJ 50 MG/ML VIAL 12.5 MG IV PUSH ×2 (04:21→12:51)
[2020-09-25 05:45] LABS: Hematocrit 25.7 % (37.0-47.0); Hemoglobin 8.4 g/dL (12.0-15.0); Mean Corpuscular HGB Conc 32.7 g/dl (32-36); Mean Corpuscular Hemoglobin 31.3 pg (26-34); Mean Corpuscular Volume 95.9 fl (80-100); Mean Platelet Volume 8.9 fl (7.4-10.4); Platelet Count Result 266 k/mm3 (150-375); Red Blood Count 2.68 M/mm3 (4.2-5.4); Red Cell Distribution Width 12.8 % (11.5-14.5)
[2020-09-25 06:00] LABS: Anion Gap 7 mmol/L (8-16); Blood Urea Nitrogen 13 mg/dL (7-17); Calcium 8.1 mg/dL (8.4-10.2); Carbon Dioxide 30 mmol/L (22-30); Chloride 101 mmol/L (98-107); Estimated CRCL calculation 67 ml/min; Estimated Glomerular Filt Rate > 60; Glucose 206 mg/dL (65-105); Magnesium 1.3 mg/dL (1.6-2.3); Potassium 4.4 mmol/L (3.4-5.0); Sodium 138 mmol/L (137-145)
--- NOTE | 2020-09-25 08:12 | PM.PNGS ---
Progress Note: A&P Assessment and Plan (1) Incisional hernia: Qualifiers: Obstruction and gangrene presence: without obstruction or gangrene Qualified Code(s): K43.2 - Incisional hernia without obstruction or gangrene Code(s): K43.2 - Incisional hernia without obstruction or gangrene Status: Chronic Assessment and Plan: better pain control but now overly sedated. Will reduce dose of ECHO TECHNOLOGIST to 1 mg and stop basal rate. Continue to ambulate today. (2) Smoker: Code(s): F17.200 - Nicotine dependence, unspecified, uncomplicated Status: Chronic (3) Anemia: Qualifiers: Anemia type: unspecified type Qualified Code(s): D64.9 - Anemia, unspecified Code(s): D64.9 - Anemia, unspecified Status: Acute Assessment and Plan: H&H low but stable last 3 days. Subjective Subjective Date/Time Seen: 09/25/20 08:12 Post Op day: 4 Patient reports: no new complaints, pain is less ( sleepy with ECHO TECHNOLOGIST morphine, seems a little too sedated.), tolerating a regular diet and bowel movement Review of Systems Review of Systems: All systems reviewed & are unremarkable except as noted in HPI and below Constitutional: Constitutional: Denies chills, Reports daytime sleepiness, Denies fever(s) and Denies headache(s) Cardiovascular: Cardiovascular: Denies chest pain and Denies dyspnea Respiratory: Respiratory: Denies cough and Denies dyspnea Gastrointestinal: Gastrointestinal: Reports as per HPI Neurologic: Denies confusion and Denies headache(s) Exam Const: General: comfortable, no acute distress and lethargic; No confusion Nutritional Appearance: overweight Orientation/consciousness: patient oriented x3 and No confusion GI: Inspection: incision ( Healing well, serous fluid in LEONIDAS drains) GI Palp: Yes Soft to palpation, Yes Tenderness to palpation present (GI), No Guarding due to palpation present (GI) and No Rebound tenderness present Neuro: General: patient oriented x3, no focal motor deficits and No confusion Extrem: General: no calf tenderness and no edema Psych: Affect: normal affect Insight: Good insight present (Psych) Judgement: Good judgement present (Psych) Objective Data Vital Signs Vital Signs: Vital Signs - 24 hr 09/24/20 10:05 09/24/20 14:00 09/24/20 15:09 Temperature 36.4 C 36.4 C Pulse Rate 77 79 Respiratory Rate 16 20 Blood Pressure 131/58 L 121/59 L Pulse Oximetry 96 92 96 09/24/20 15:30 09/24/20 17:55 09/24/20 17:58 Temperature 36.5 C 36.3 C L Pulse Rate 92 75 Respiratory Rate 20 16 16 Blood Pressure 133/60 115/60 Pulse Oximetry 98 98 95 09/24/20 18:10 09/24/20 19:26 09/24/20 20:18 Temperature 36.6 C 36.8 C Pulse Rate 78 78 Respiratory Rate 16 16 18 Blood Pressure 115/60 112/59 L Pulse Oximetry 95 95 94 09/24/20 20:23 09/24/20 21:15 09/24/20 22:15 Temperature 36.6 C 36.6 C 36.8 C Pulse Rate 80 80 83 Respiratory Rate 18 18 16 Blood Pressure 122/64 127/58 L 115/48 L Pulse Oximetry 94 93 93 09/25/20 00:00 09/25/20 00:15 09/25/20 02:00 Temperature 36.7 C 36.7 C Pulse Rate 75 82 Respiratory Rate 18 18 16 Blood Pressure 122/54 L 119/52 L Pulse Oximetry 97 97 94 09/25/20 04:00 09/25/20 06:00 09/25/20 07:58 Temperature 36.7 C 36.9 C 36.6 C Pulse Rate 80 84 87 Respiratory Rate 18 16 15 Blood Pressure 111/79 125/57 L 114/50 L Pulse Oximetry 97 92 90 Intake/Output Intake/Output: Intake & Output 09/23/20 09/24/20 09/24/20 09/25/20 00:59 00:59 23:59 23:59 Intake Total 800 Output Total 1232 Balance -432 Meds/Results Medications: Active Medications Generic Name Dose Route Start Last Admin Trade Name Freq PRN Reason Stop Dose Admin Acetaminophen 500 mg 09/24/20 09:24 Acetaminophen 500 Mg Tablet PO Q6H PRN Mild Pain (1-3) or Fever Clonazepam 0.5 mg 09/21/20 17:14 09/24/20 17:15 Clonazepam (*Crx) 0.5 Mg Tablet PO 0.5 mg BID [facility] Administration De
[2020-09-25 08:35] LABS: Glucose Point of Care 184 (65-105)
[2020-09-25] MEDS: MAGNESIUM SULFATE 3GM/D5W100ML 3 GM/100 ML BAG IVPB (09:13)
[2020-09-25] MEDS: polyethylene glycoL 3350 17 GM POWD.PACK PO (09:13)
[2020-09-25] MEDS: clonazePAM (*CRX) 0.5 MG TABLET PO ×2 (09:15→17:23)
[2020-09-25] MEDS: POTASSIUM CHLORIDE 20 MEQ TABLET.ER 40 MEQ PO ×2 (09:15→17:23)
[2020-09-25] MEDS: DULoxetine HCL 30 MG CAPSULE.DR PO (09:15)
[2020-09-25] MEDS: PANTOPRAZOLE 40 MG TABLET PO (09:15)
[2020-09-25] MEDS: MORPHINE SULFATE PCA (*CRX) 30 MG/30 ML SYR IV CONT (10:46)
--- NOTE | 2020-09-25 12:33 | PCDIET ---
Nutrition Follow-Up Complete: Inadequate oral intake r/t pain as evidence by 0% intake and wt loss of 24-33lbs Diet advancement with PO intake of 50% or greater of meals and supplements Goal: Goal met. Continue goal. Pt current nutrition is DBCC . Nutrition recommendation: agree Last recorded weight is 90.8 kg (recommend new wt) Bowel Motility: 09/22 BM Labs Reviewed:Glucose 206, Mg 1.3, Hgb 8.4, Hct 25.7 Meds Noted: Senna, Zoloft, NS, KCL, Zofran, Protonix, Lovenox, Lantus Additional Notes: Pt PO intake much improved since Friday, on an appropriate diet. Pt still appears to be in a lot of pain. Bowel motility agents on board to aid in bowel movements. Recommend updated wt. We will continue to monitor for adequate intake every five days.
[2020-09-25 12:34] LABS: Glucose Point of Care 204 (65-105)
[2020-09-25] MEDS: INSULIN ASPART (*BKC) 100 UNITS/ML SUB-Q (12:38)
--- NOTE | 2020-09-25 14:02 | PM.IMPN ---
Progress Note: A&P Assessment and Plan (1) Incisional hernia: Qualifiers: Obstruction and gangrene presence: without obstruction or gangrene Qualified Code(s): K43.2 - Incisional hernia without obstruction or gangrene Code(s): K43.2 - Incisional hernia without obstruction or gangrene Status: Chronic Assessment and Plan: 09/25/20 14:02 Alice Connor is a 55 year old female the past medical history of diabetes hypertension patient had a complaint of multiple hernia and patient was seen by her surgeon Dr. Jeff, she was taken to OR on 09/21 and had repair of multiple incisional hernias with mesh, bilateral transversus abdominis myofascial flap advancement, 6 cm on the left, 5 cm on the right. today on 09/25 patient had last BM on 09/24, patient c/o abdominal pain patient is seen by her surgeon and anestheologist and managing her pain with ANIMAL CARE TAKER pump, patient denies any nausea or vomiting, pateint had been on full clear liquids and on 09/24 patient was seen by her surgeon Dr. Jeff and advanced to diabetes diet, patient is on high dose of sliding scale, her blood sugars were trending up added lanuts 18 units qhs, will monitor and adjust her insulin as needed as patient is now on diabetes diet. Patient blood pressure is close to normal, will hold home medication and monitor, patient had been receiving IVF and appeared volume overloaded, her surgeon started patient on bumex, patient diuresing well, patient HH was trending down most likely due to hemodilution and acute blood loose during surgery now her hh is stable for last 3 days, patient is clinically stable will monitor. will continue to follow the patient further recommendation to follow. today patient daughter is present in the room. (2) IDDM (insulin dependent diabetes mellitus): Code(s): E11.9 - Type 2 diabetes mellitus without complications; Z79.4 - manager intermediate (current) use of insulin Status: Chronic Assessment and Plan: currently patient is not eating or drinking as much and on high does sliding scale will continue to monitor once clinically stable will resume patient's home regimen (3) HTN (hypertension): Qualifiers: Hypertension type: essential hypertension Qualified Code(s): I10 - Essential (primary) hypertension Code(s): I10 - Essential (primary) hypertension Status: Chronic Assessment and Plan: today patient blood pressure is soft will hold losartan and resume once patient blood pressure is trending up. Subjective Date/time seen: 09/25/20 14:02 Alice Connor is a 55 year old female the past medical history of diabetes hypertension patient had a complaint of multiple hernia and patient was seen by her surgeon Dr. Jeff, she was taken to OR on 09/21 and had repair of multiple incisional hernias with mesh, bilateral transversus abdominis myofascial flap advancement, 6 cm on the left, 5 cm on the right. today on 09/25 patient had last BM on 09/24, patient c/o abdominal pain patient is seen by her surgeon and anestheologist and managing her pain with ANIMAL CARE TAKER pump, patient denies any nausea or vomiting, pateint had been on full clear liquids and on 09/24 patient was seen by her surgeon Dr. Jeff and advanced to diabetes diet, patient is on high dose of sliding scale, her blood sugars were trending up added lanuts 18 units qhs, will monitor and adjust her insulin as needed as patient is now on diabetes diet. Patient blood pressure is close to normal, will hold home medication and monitor, patient had been receiving IVF and appeared volume overloaded, her surgeon started patient on bumex, patient diuresing well, patient HH was trending down most likely due to hemodilution and acute blood loose during surgery now her hh is stable for last 3 days, patient is clinically stable will monitor. will continue to follow the patient further recommendation to follow. today patient daughter is present in the room.
[2020-09-25 16:43] LABS: Glucose Point of Care 198 (65-105)
[2020-09-25] MEDS: SODIUM CHLORIDE 0.9% IV 1,000 ML 30 ML IV CONT (19:20)
[2020-09-25] MEDS: SENNA/DOCUSATE SODIUM TABLET 2 TAB PO (20:38)
[2020-09-25] MEDS: SERTRALINE HCL 50 MG TABLET 100 MG PO (20:38)
[2020-09-25] MEDS: INSULIN GLARGINE (*BKC) 100 UNITS/ML 18 UNITS SUB-Q (20:44)
[2020-09-25 22:14] LABS: Glucose Point of Care 230 (65-105)
[2020-09-26] VITALS (8 sets, daily range): BP systolic 125–143; BP diastolic 54–67; PULSE 72–80; RESP 14–18; TEMP 36.4–37; O2SAT 92–96
[2020-09-26] MEDS: diphenhydrAMINE HCl INJ 50 MG/ML VIAL 12.5 MG IV PUSH ×2 (03:56→09:36)
[2020-09-26 05:48] LABS: Hematocrit 26.2 % (37.0-47.0); Hemoglobin 8.5 g/dL (12.0-15.0); Mean Corpuscular HGB Conc 32.4 g/dl (32-36); Mean Corpuscular Hemoglobin 31.1 pg (26-34); Platelet Count Result 297 k/mm3 (150-375); Red Blood Count 2.73 M/mm3 (4.2-5.4); Red Cell Distribution Width 12.7 % (11.5-14.5); White Blood Count 6.1 K/mm3 (4.5-10.0)
[2020-09-26 06:16] LABS: Anion Gap 7 mmol/L (8-16); Blood Urea Nitrogen 10 mg/dL (7-17); Calcium 8.5 mg/dL (8.4-10.2); Carbon Dioxide 30 mmol/L (22-30); Chloride 99 mmol/L (98-107); Estimated CRCL calculation 75 ml/min; Estimated Glomerular Filt Rate > 60; Glucose 171 mg/dL (65-105); Magnesium 1.6 mg/dL (1.6-2.3); Potassium 4.6 mmol/L (3.4-5.0); Sodium 136 mmol/L (137-145)
--- NOTE | 2020-09-26 07:15 | PM.PNGS ---
Progress Note: A&P Assessment and Plan (1) Incisional hernia: Qualifiers: Obstruction and gangrene presence: without obstruction or gangrene Qualified Code(s): K43.2 - Incisional hernia without obstruction or gangrene Code(s): K43.2 - Incisional hernia without obstruction or gangrene Status: Chronic Assessment and Plan: Continues to slowly improve. Pain control is major obstacle to being discharged at this point. Will DC LEONIDAS drains today. Continue ambulation and dressing changes. (2) Smoker: Code(s): F17.200 - Nicotine dependence, unspecified, uncomplicated Status: Chronic (3) Anemia: Qualifiers: Anemia type: unspecified type Qualified Code(s): D64.9 - Anemia, unspecified Code(s): D64.9 - Anemia, unspecified Status: Acute Assessment and Plan: Stable, monitoring. Subjective Subjective Date/Time Seen: 09/26/20 07:15 Post Op day: 5 Patient reports: pain is less, tolerating a regular diet, bowel movement and afebrile Review of Systems Review of Systems: All systems reviewed & are unremarkable except as noted in HPI and below Constitutional: Constitutional: Denies headache(s) Cardiovascular: Cardiovascular: Denies chest pain and Denies dyspnea Respiratory: Respiratory: Denies cough and Denies dyspnea Gastrointestinal: Gastrointestinal: Reports as per HPI Neurologic: Denies confusion and Denies headache(s) Exam Const: General: comfortable and no acute distress; No confusion Orientation/consciousness: patient oriented x3 and No confusion GI: Inspection: non-distended and incision ( Wound dry and healing nicely.) GI Palp: Yes Soft to palpation, Yes Tenderness to palpation present (GI), No Guarding due to palpation present (GI) and No Rebound tenderness present Neuro: General: patient oriented x3, no focal motor deficits and No confusion Extrem: General: no calf tenderness and no edema Psych: Affect: normal affect Insight: Good insight present (Psych) Judgement: Good judgement present (Psych) Objective Data Vital Signs Vital Signs: Vital Signs - 24 hr 09/25/20 07:58 09/25/20 08:00 09/25/20 10:00 Temperature 36.6 C 36.7 C Pulse Rate 87 89 Respiratory Rate 15 16 16 Blood Pressure 114/50 L 123/50 L Pulse Oximetry 90 95 95 09/25/20 10:46 09/25/20 12:00 09/25/20 14:00 Temperature 36.3 C L 36.9 C Pulse Rate 83 84 Respiratory Rate 16 16 16 Blood Pressure 139/61 123/57 L Pulse Oximetry 95 94 95 09/25/20 16:00 09/25/20 18:00 09/25/20 20:00 Temperature 36.7 C 36.8 C 36.3 C L Pulse Rate 80 81 71 Respiratory Rate 16 16 18 Blood Pressure 128/53 L 136/65 121/58 L Pulse Oximetry 90 90 97 09/25/20 20:17 09/26/20 00:00 09/26/20 04:00 Temperature 36.5 C Pulse Rate 72 Respiratory Rate 18 14 Blood Pressure 125/60 Pulse Oximetry 92 96 Intake/Output Intake/Output: Intake & Output 09/24/20 09/24/20 09/25/20 09/26/20 00:59 23:59 23:59 23:59 Intake Total 2240 Output Total 1242 35 Balance 998 -35 Meds/Results Medications: Active Medications Generic Name Dose Route Start Last Admin Trade Name Freq PRN Reason Stop Dose Admin Acetaminophen 500 mg 09/24/20 09:24 Acetaminophen 500 Mg Tablet PO Q6H PRN Mild Pain (1-3) or Fever Clonazepam 0.5 mg 09/21/20 17:14 09/25/20 17:23 Clonazepam (*Crx) 0.5 Mg Tablet PO 0.5 mg BID [facility] Administration Dextrose 12.5 gm 09/21/20 17:14 Dextrose 50% 25 Gm/50 Ml Syringe IV PUSH PRN PRN Hypoglycemia Protocol Diphenhydramine HCl 12.5 mg 09/21/20 12:01 09/26/20 03:56 Diphenhydramine Hcl Inj 50 Mg/Ml Vial IV PUSH 12.5 mg Q4H PRN Administration Itching Diphenhydramine HCl 25 mg 09/21/20 17:14 Diphenhydramine Hcl Inj 50 Mg/Ml Vial IV PUSH Q6H PRN Itching Duloxetine HCl 30 mg 09/22/20 09:00 09/25/20 09:15 Duloxetine Hcl 30 Mg Capsule.Dr PO 30 mg QAM RADHA Administra
[2020-09-26] MEDS: DULoxetine HCL 30 MG CAPSULE.DR PO (08:46)
[2020-09-26] MEDS: clonazePAM (*CRX) 0.5 MG TABLET PO ×2 (08:46→17:36)
[2020-09-26] MEDS: PANTOPRAZOLE 40 MG TABLET PO (08:46)
[2020-09-26] MEDS: POTASSIUM CHLORIDE 20 MEQ TABLET.ER 40 MEQ PO (08:46)
[2020-09-26] MEDS: polyethylene glycoL 3350 17 GM POWD.PACK PO (08:47)
[2020-09-26 08:52] LABS: Glucose Point of Care 139 (65-105)
[2020-09-26] MEDS: HYDROcodone/acetaminophen (*CRX) 10-325 MG TABLET 1 TAB PO (09:36)
--- NOTE | 2020-09-26 11:17 | PM.IMPN ---
Progress Note: A&P Assessment and Plan (1) Incisional hernia: Qualifiers: Obstruction and gangrene presence: without obstruction or gangrene Qualified Code(s): K43.2 - Incisional hernia without obstruction or gangrene Code(s): K43.2 - Incisional hernia without obstruction or gangrene Status: Chronic Assessment and Plan: 09/26/20 11:17 Alice Connor is a 55 year old female the past medical history of diabetes hypertension patient had a complaint of multiple hernia and patient was seen by her surgeon Dr. Jeff, she was taken to OR on 09/21 and had repair of multiple incisional hernias with mesh, bilateral transversus abdominis myofascial flap advancement, 6 cm on the left, 5 cm on the right. today on 09/26 patient had BM today , patient c/o abdominal pain patient is seen by her surgeon and anestheologist and managing her pain, patient denies any nausea or vomiting, pateint had been on full clear liquids and on 09/24 patient was seen by her surgeon Dr. Jeff and advanced to diabetes diet, patient is on high dose of sliding scale, her blood sugars were trending up added lanuts 18 units qhs, will monitor and adjust her insulin as needed as patient is now on diabetes diet and tolerating well, Patient blood pressure is close to normal, will hold home medication and monitor, patient had been receiving IVF and appeared volume overloaded, her surgeon started patient on bumex, patient diuresing well, patient HH was trending down most likely due to hemodilution and acute blood loose during surgery now her hh is stable for last 4 days, patient is clinically stable, lying in the recliner chair will monitor. will continue to follow the patient further recommendation to follow. (2) IDDM (insulin dependent diabetes mellitus): Code(s): E11.9 - Type 2 diabetes mellitus without complications; Z79.4 - alf (current) use of insulin Status: Chronic Assessment and Plan: currently patient is not eating or drinking as much and on high does sliding scale will continue to monitor once clinically stable will resume patient's home regimen (3) HTN (hypertension): Qualifiers: Hypertension type: essential hypertension Qualified Code(s): I10 - Essential (primary) hypertension Code(s): I10 - Essential (primary) hypertension Status: Chronic Assessment and Plan: today patient blood pressure is soft will hold losartan and resume once patient blood pressure is trending up. Subjective Date/time seen: 09/26/20 11:17 Alice Connor is a 55 year old female the past medical history of diabetes hypertension patient had a complaint of multiple hernia and patient was seen by her surgeon Dr. Jeff, she was taken to OR on 09/21 and had repair of multiple incisional hernias with mesh, bilateral transversus abdominis myofascial flap advancement, 6 cm on the left, 5 cm on the right. today on 09/26 patient had BM today , patient c/o abdominal pain patient is seen by her surgeon and anestheologist and managing her pain, patient denies any nausea or vomiting, pateint had been on full clear liquids and on 09/24 patient was seen by her surgeon Dr. Jeff and advanced to diabetes diet, patient is on high dose of sliding scale, her blood sugars were trending up added lanuts 18 units qhs, will monitor and adjust her insulin as needed as patient is now on diabetes diet and tolerating well, Patient blood pressure is close to normal, will hold home medication and monitor, patient had been receiving IVF and appeared volume overloaded, her surgeon started patient on bumex, patient diuresing well, patient HH was trending down most likely due to hemodilution and acute blood loose during surgery now her hh is stable for last 4 days, patient is clinically stable, lying in the recliner chair will monitor. will continue to follow the patient further recommendation to follow. Review of Systems Review of Systems:
[2020-09-26] MEDS: ENOXAPARIN 40 MG/0.4 ML SYRINGE SUB-Q (11:19)
[2020-09-26 15:07] LABS: Glucose Point of Care 171 (65-105)
[2020-09-26] MEDS: HYDROcodone/acetaminophen (*CRX) 5-325 MG TABLET 1 TAB PO ×2 (17:36→22:07)
[2020-09-26 17:57] LABS: Glucose Point of Care 176 (65-105)
[2020-09-26] MEDS: diphenhydrAMINE HCl CAP 25 MG CAPSULE PO (20:53)
[2020-09-26] MEDS: SENNA/DOCUSATE SODIUM TABLET 2 TAB PO (20:54)
[2020-09-26 20:59] LABS: Glucose Point of Care 257 (65-105)
[2020-09-26] MEDS: INSULIN GLARGINE (*BKC) 100 UNITS/ML 18 UNITS SUB-Q (21:02)
[2020-09-26] MEDS: SERTRALINE HCL 50 MG TABLET 100 MG PO (22:08)
[2020-09-27] MEDS: HYDROcodone/acetaminophen (*CRX) 10-325 MG TABLET 1 TAB PO (00:17)
[2020-09-27] MEDS: HYDROcodone/acetaminophen (*CRX) 5-325 MG TABLET 1 TAB PO ×3 (04:15→21:16)
--- NOTE | 2020-09-27 04:18 | PC.NURSE ---
pt complaining of worsening groin pain and difficulty moving her leg at the hip. Dr Can was notified and met briefly with patient, he believes pain is related to continuous bedrest and DC of frequent analgesics, no new orders at this time.
[2020-09-27 05:46] LABS: Hematocrit 24.2 % (37.0-47.0); Hemoglobin 8.1 g/dL (12.0-15.0); Mean Corpuscular HGB Conc 33.5 g/dl (32-36); Mean Corpuscular Hemoglobin 31.5 pg (26-34); Mean Corpuscular Volume 94.2 fl (80-100); Mean Platelet Volume 8.9 fl (7.4-10.4); Platelet Count Result 333 k/mm3 (150-375); Red Blood Count 2.57 M/mm3 (4.2-5.4); Red Cell Distribution Width 12.3 % (11.5-14.5); White Blood Count 8.8 K/mm3 (4.5-10.0)
[2020-09-27 06:04] LABS: Anion Gap 8 mmol/L (8-16); Blood Urea Nitrogen 10 mg/dL (7-17); Calcium 8.7 mg/dL (8.4-10.2); Carbon Dioxide 29 mmol/L (22-30); Chloride 96 mmol/L (98-107); Estimated CRCL calculation 75 ml/min; Estimated Glomerular Filt Rate > 60; Glucose 199 mg/dL (65-105); Magnesium 1.4 mg/dL (1.6-2.3); Potassium 4.2 mmol/L (3.4-5.0); Sodium 133 mmol/L (137-145)
[2020-09-27 06:56] VITALS: BP 131/59; PULSE 72; RESP 18; TEMP 37; O2SAT 94
[2020-09-27 07:57] LABS: Glucose Point of Care 159 (65-105)
[2020-09-27] MEDS: DULoxetine HCL 30 MG CAPSULE.DR PO (08:43)
[2020-09-27] MEDS: ENOXAPARIN 40 MG/0.4 ML SYRINGE SUB-Q (08:43)
[2020-09-27] MEDS: clonazePAM (*CRX) 0.5 MG TABLET PO ×2 (08:43→16:59)
[2020-09-27] MEDS: PANTOPRAZOLE 40 MG TABLET PO ×2 (08:43→21:09)
[2020-09-27] MEDS: polyethylene glycoL 3350 17 GM POWD.PACK PO (08:44)
[2020-09-27] MEDS: ACETAMINOPHEN 500 MG TABLET PO (11:37)
[2020-09-27 11:41] LABS: Glucose Point of Care 235 (65-105)
[2020-09-27] MEDS: INSULIN ASPART (*BKC) 100 UNITS/ML SUB-Q ×2 (11:41→16:56)
--- NOTE | 2020-09-27 12:46 | PM.IMPN ---
Progress Note: A&P Assessment and Plan (1) Incisional hernia: Qualifiers: Obstruction and gangrene presence: without obstruction or gangrene Qualified Code(s): K43.2 - Incisional hernia without obstruction or gangrene Code(s): K43.2 - Incisional hernia without obstruction or gangrene Status: Chronic Assessment and Plan: Alice Connor is a 55 year old female the past medical history of diabetes hypertension patient had a complaint of multiple hernia and patient was seen by her surgeon Dr. Jeff, she was taken to OR on 09/21 and had repair of multiple incisional hernias with mesh, bilateral transversus abdominis myofascial flap advancement, 6 cm on the left, 5 cm on the right. Progessing well. Hopeful discharge tomorrow (2) IDDM (insulin dependent diabetes mellitus): Code(s): E11.9 - Type 2 diabetes mellitus without complications; Z79.4 - loan documentation specialist (current) use of insulin Status: Chronic Assessment and Plan: Resume patient DM regime (3) HTN (hypertension): Qualifiers: Hypertension type: essential hypertension Qualified Code(s): I10 - Essential (primary) hypertension Code(s): I10 - Essential (primary) hypertension Status: Chronic Assessment and Plan: BP is stable. 131/ 59 today Subjective Date/time seen: 09/27/20 12:46 Interval history: Geeta is a 55 year old female the past medical history of diabetes hypertension patient had a complaint of multiple hernia and patient was seen by her surgeon Dr. Jeff, she was taken to OR on 09/21 and had repair of multiple incisional hernias with mesh, bilateral transversus abdominis myofascial flap advancement, 6 cm on the left, 5 cm on the right. Pt is doing better today, complaints of pain in the left groin. Hopeful discharge tomorrow. I will resume her home medications today. Review of Systems Review of Systems: All systems reviewed & are unremarkable except as noted in HPI and below Exam Narrative: Exam Narrative: Patient is comfortable LUNGS:Clear to auscultation HEART: S1S2 ABDOMEN: abdominal tenderness worse around left groin area, wounds dressing clean, BS present Neuro: grossly intact LEGS: no edema Objective Data Vital Signs Vital Signs: Vital Signs - 24 hr 09/26/20 14:00 09/26/20 18:15 09/26/20 22:00 Temperature 36.4 C L 37.0 C 36.8 C Pulse Rate 78 78 80 Respiratory Rate 16 16 16 Blood Pressure 138/60 132/54 L 137/67 Pulse Oximetry 94 94 95 09/27/20 06:56 Temperature 37.0 C Pulse Rate 72 Respiratory Rate 18 Blood Pressure 131/59 L Pulse Oximetry 94 Intake/Output Intake/Output: Intake & Output 09/24/20 09/25/20 09/26/20 09/27/20 23:59 23:59 23:59 23:59 Intake Total 2240 485 540 Output Total 1242 685 700 Balance 998 -200 -160 Meds/Results Medications: Active Medications Generic Name Dose Route Start Last Admin Trade Name Freq PRN Reason Stop Dose Admin Acetaminophen 500 mg 09/26/20 07:13 09/27/20 11:37 Acetaminophen 500 Mg Tablet PO 500 mg Q6H PRN Administration Mild Pain (1-3) or Fever Hydrocodone Bitart/Acetaminophen 1 tab 09/26/20 07:13 09/27/20 08:46 Hydrocodone/Acetaminophen (*Crx) 5-325 Mg Tablet PO 1 tab Q4H PRN Administration Pain Rated 4-6 Hydrocodone Bitart/Acetaminophen 1 tab 09/26/20 07:13 09/27/20 00:17 Hydrocodone/Acetaminophen (*Crx) 10-325 Mg Tablet PO 1 tab Q6H PRN Administration Pain Rated 7-10 Clonazepam 0.5 mg 09/21/20 17:14 09/27/20 08:43 Clonazepam (*Crx) 0.5 Mg Tablet PO 0.5 mg BID [facility] Administration Dextrose 12.5 gm 09/21/20 17:14 Dextrose 50% 25 Gm/50 Ml Syringe IV PUSH PRN PRN Hypoglycemia Protocol Diphenhydramine HCl 25 mg 09/26/20 20:47 09/26/20 20:53 Diphenhydramine Hcl Cap 25 Mg Capsule PO 25 mg Q6H PRN Administration Itching Duloxetine HCl 30 mg 09/22/20 09:00 09/27/20 08:43 Duloxetine Hcl 30 Mg Capsule.
[2020-09-27 14:00] VITALS: BP 127/52; PULSE 77; RESP 16; TEMP 36.8; O2SAT 94
[2020-09-27 16:37] LABS: Glucose Point of Care 304 (65-105)
[2020-09-27] MEDS: INSULIN GLARGINE (*BKC) 100 UNITS/ML 40 UNITS SUB-Q (16:56)
[2020-09-27] MEDS: PHARMACIST COMMUNICATION ORDER 1 EACH XX (16:59)
--- NOTE | 2020-09-27 17:12 | PM.PNGS ---
Progress Note: A&P Assessment and Plan (1) Incisional hernia: Qualifiers: Obstruction and gangrene presence: without obstruction or gangrene Qualified Code(s): K43.2 - Incisional hernia without obstruction or gangrene Code(s): K43.2 - Incisional hernia without obstruction or gangrene Status: Chronic Assessment and Plan: Continue slow improvement. Will work with physical therapy for walking at home. Hopefully will not need home health for [facility]. Repair intact and wound healing well. Possibly home tomorrow. (2) Smoker: Code(s): F17.200 - Nicotine dependence, unspecified, uncomplicated Status: Chronic (3) Anemia: Qualifiers: Anemia type: unspecified type Qualified Code(s): D64.9 - Anemia, unspecified Code(s): D64.9 - Anemia, unspecified Status: Acute Assessment and Plan: Continue to monitor. Low but stable. Subjective Subjective Date/Time Seen: 09/27/20 06:32 Post Op day: 6 Patient reports: still having pain (But only requiring oral pain medication), tolerating a regular diet, bowel movement and afebrile Interval history: Still having a lot of trouble getting up and walking. PT OT saw her yesterday. Plan to work with her again today. Review of Systems Review of Systems: All systems reviewed & are unremarkable except as noted in HPI and below Constitutional: Constitutional: Reports body ache(s), Denies fever(s), Denies headache(s), Reports lethargy and Reports weakness Cardiovascular: Cardiovascular: Denies chest pain and Denies dyspnea Respiratory: Respiratory: Denies cough and Denies dyspnea Gastrointestinal: Gastrointestinal: Reports as per HPI, Reports abdominal pain, Denies diarrhea, Denies nausea and Denies vomiting Neurologic: Denies confusion and Denies headache(s) Exam Const: General: comfortable and no acute distress; No confusion Orientation/consciousness: patient oriented x3 and No confusion GI: Inspection: non-distended and incision (Incision clean and dry, continues to heal well) GI Palp: Yes Soft to palpation, Yes Tenderness to palpation present (GI), No Guarding due to palpation present (GI) and No Rebound tenderness present Auscultation: normal bowel sounds Neuro: General: patient oriented x3, no focal motor deficits and No confusion Extrem: General: no calf tenderness and no edema Psych: Affect: normal affect Insight: Good insight present (Psych) Judgement: Good judgement present (Psych) Objective Data Vital Signs Vital Signs: Vital Signs - 24 hr 09/26/20 18:15 09/26/20 22:00 09/27/20 06:56 Temperature 37.0 C 36.8 C 37.0 C Pulse Rate 78 80 72 Respiratory Rate 16 16 18 Blood Pressure 132/54 L 137/67 131/59 L Pulse Oximetry 94 95 94 09/27/20 14:00 Temperature 36.8 C Pulse Rate 77 Respiratory Rate 16 Blood Pressure 127/52 L Pulse Oximetry 94 Intake/Output Intake/Output: Intake & Output 09/24/20 09/25/20 09/26/20 09/27/20 23:59 23:59 23:59 23:59 Intake Total 2240 485 780 Output Total 1242 685 700 Balance 998 -200 80 Meds/Results Medications: Active Medications Generic Name Dose Route Start Last Admin Trade Name Freq PRN Reason Stop Dose Admin Acetaminophen 500 mg 09/26/20 07:13 09/27/20 11:37 Acetaminophen 500 Mg Tablet PO 500 mg Q6H PRN Administration Mild Pain (1-3) or Fever Acetaminophen/Aspirin/Caffeine 2 tablet 09/27/20 13:04 Acetaminophen/Aspirin/Caffeine 250-250-65 Mg Tablet PO Q4-6H PRN Migraine Headache Hydrocodone Bitart/Acetaminophen 1 tab 09/26/20 07:13 09/27/20 08:46 Hydrocodone/Acetaminophen (*Crx) 5-325 Mg Tablet PO 1 tab Q4H PRN Administration Pain Rated 4-6 Hydrocodone Bitart/Acetaminophen 1 tab 09/26/20 07:13 09/27/20 00:17 Hydrocodone/Acetaminophen (*Crx) 10-325 Mg Tablet PO 1 tab Q6H PRN Administration Pain Rated 7-10 Ascorbic Acid 1,000 mg 09/28/20 09:00 Ascorbic Ac
[2020-09-27] MEDS: SENNA/DOCUSATE SODIUM TABLET 2 TAB PO (21:09)
[2020-09-27] MEDS: EZETIMIBE 10 MG TABLET PO (21:10)
[2020-09-27] MEDS: PRAVASTATIN SODIUM 20 MG TABLET 40 MG PO (21:10)
[2020-09-27] MEDS: LOSARTAN POTASSIUM 25 MG TABLET PO (21:10)
[2020-09-27] MEDS: SERTRALINE HCL 50 MG TABLET 100 MG PO (21:10)
[2020-09-27 22:00] VITALS: BP 119/55; PULSE 73; RESP 18; TEMP 36.1; O2SAT 96
[2020-09-27 22:58] LABS: Glucose Point of Care 375 (65-105)
--- NOTE | 2020-09-28 01:05 | PC.NURSE ---
Dr Jeff notified pt has lost IV access and verbalized OK for her to have no IV access at this time as patient is planned to DC tomorrow 09/28
[2020-09-28] MEDS: HYDROcodone/acetaminophen (*CRX) 10-325 MG TABLET 1 TAB PO (01:21)
[2020-09-28 06:00] VITALS: BP 124/56; PULSE 70; RESP 21; TEMP 36.3; O2SAT 100
[2020-09-28 06:01] LABS: Basophils Percent Auto 0.3 % (0.2-1.2); Eosinophils Absolute Auto 0.6 K/mm3 (0-0.3); Eosinophils Percent Auto 7.1 % (0-4.4); Hemoglobin 9.1 g/dL (12.0-15.0); Immature Granulocyte Absolute 0.33 K/mm3 (0.00-0.031); Immature Granulocyte Percent A 3.8 % (0-0.5); Lymphocytes Absolute Auto 1.62 K/mm3 (0.9-3.2); Lymphocytes Percent Auto 18.8 % (18.3-44.2); Mean Corpuscular HGB Conc 32.5 g/dl (32-36); Mean Corpuscular Hemoglobin 30.8 pg (26-34); Mean Corpuscular Volume 94.9 fl (80-100); Mean Platelet Volume 8.8 fl (7.4-10.4); Monocytes Absolute Auto 0.5 K/mm3 (0.1-0.6); Monocytes Percent Auto 6.1 % (2.6-8.5); Neutrophils Absolute Auto 5.5 K/mm3 (1.3-6.7); Neutrophils Percent Auto 63.9 % (45.5-73.1); Nucleated Red Blood Cells Perc 0.3 % (0.0-0.2); Platelet Count Result 373 k/mm3 (150-375); Red Blood Count 2.95 M/mm3 (4.2-5.4); Red Cell Distribution Width 12.6 % (11.5-14.5); White Blood Count 8.6 K/mm3 (4.5-10.0)
[2020-09-28 06:04] LABS: Anion Gap 8 mmol/L (8-16); Blood Urea Nitrogen 11 mg/dL (7-17); Calcium 8.5 mg/dL (8.4-10.2); Carbon Dioxide 31 mmol/L (22-30); Chloride 95 mmol/L (98-107); Estimated CRCL calculation 75 ml/min; Estimated Glomerular Filt Rate > 60; Glucose 312 mg/dL (65-105); Magnesium 1.5 mg/dL (1.6-2.3); Sodium 134 mmol/L (137-145)
[2020-09-28 07:55] LABS: Glucose Point of Care 248 (65-105)
[2020-09-28] MEDS: INSULIN GLARGINE (*BKC) 100 UNITS/ML 40 UNITS SUB-Q (08:03)
[2020-09-28] MEDS: INSULIN ASPART (*BKC) 100 UNITS/ML SUB-Q (08:03)
[2020-09-28] MEDS: ASCORBIC ACID 500 MG TABLET 1000 MG PO (08:07)
[2020-09-28] MEDS: ENOXAPARIN 40 MG/0.4 ML SYRINGE SUB-Q (08:08)
[2020-09-28] MEDS: CYANOCOBALAMIN 1,000 MCG TABLET 1000 MCG PO (08:08)
[2020-09-28] MEDS: polyethylene glycoL 3350 17 GM POWD.PACK PO (08:08)
[2020-09-28] MEDS: PANTOPRAZOLE 40 MG TABLET PO (08:08)
[2020-09-28] MEDS: DULoxetine HCL 30 MG CAPSULE.DR PO (08:08)
[2020-09-28] MEDS: clonazePAM (*CRX) 0.5 MG TABLET PO (08:08)
--- NOTE | 2020-09-28 08:17 | PM.DS ---
DS: Admitting Diagnosis Admitting Diagnosis Admitting Diagnosis: Incisional Hernia DS: Discharge Diagnosis Discharge Diagnosis (1) Incisional hernia: Qualifiers: Obstruction and gangrene presence: without obstruction or gangrene Qualified Code(s): K43.2 - Incisional hernia without obstruction or gangrene Code(s): K43.2 - Incisional hernia without obstruction or gangrene Status: Chronic (2) Smoker: Code(s): F17.200 - Nicotine dependence, unspecified, uncomplicated Status: Chronic (3) Anemia: Qualifiers: Anemia type: unspecified type Qualified Code(s): D64.9 - Anemia, unspecified Code(s): D64.9 - Anemia, unspecified Status: Acute Assessment and Plan: Improving on discharge (4) IDDM (insulin dependent diabetes mellitus): Code(s): E11.9 - Type 2 diabetes mellitus without complications; Z79.4 - termite control service representative (current) use of insulin Status: Chronic (5) HTN (hypertension): Qualifiers: Hypertension type: essential hypertension Qualified Code(s): I10 - Essential (primary) hypertension Code(s): I10 - Essential (primary) hypertension Status: Chronic DS: Summary Time Spent with Patient Time attestation: Total time spent providing and/or coordinating discharge services: the patient is a 55-year-old woman who had a colon resection for polyps last year. This was an open surgery. She developed a sizable upper abdominal incisional hernia as well as a small suprapubic incisional hernia which was symptomatic. After evaluation in the office, she was prepared for surgery and taken to the operating room on the day of admission 09/21/2020. Multiple incisional hernias were repaired with mesh. This was a retro rectus repair with soft polypropylene mesh. She had bilateral transversus abdominis myofascial flap advancement as well. An epidural was placed prior to surgery. Postoperatively, the patient's main problem was pain control and return to ability to ambulate. The hospitalist saw her in consultation and managed her medical problems including diabetes and hypertension. She had some anemia after surgery but this stabilized. This was due to a combination of chronic anemia and acute intraoperative losses. Her epidural catheter was removed on postop day 3. She had to be started on a DYE HOUSE VAT WORKER for pain control later that day. The DYE HOUSE VAT WORKER was then able to be discontinued 2 days later. Eventually on postop day 6. She was only requiring oral analgesics for pain. She still was having trouble getting around and physical therapy and occupational therapy saw her and assisted with this. Her wound was healing well. Her repair was intact. Her LEONIDAS drains were removed on postoperative day 5. She was voiding well without a catheter. She was able to be discharged on postop day 7. In good condition. Exam GI: Inspection: non-distended, incision ( Dry and intact, no drainage, repair intact as well.) and no visible herniation GI Palp: Yes Soft to palpation, Yes Tenderness to palpation present (GI) and No Hernia present Auscultation: normal bowel sounds DS: Data Data Completed and Pending Labs on day of discharge: Labs from last 24 hours 09/28/20 09/28/20 09/28/20 07:50 05:17 05:17 WBC 8.6 RBC 2.95 L Hgb 9.1 L Hct 28.0 L MCV 94.9 MCH 30.8 MCHC 32.5 RDW 12.6 Plt Count 373 MPV 8.8 Immature Gran % (Auto) 3.8 H Neut % (Auto) 63.9 Lymph % (Auto) 18.8 Sequoyah % (Auto) 6.1 Eos % (Auto) 7.1 H Baso % (Auto) 0.3 Lymph # (Auto) 1.62 Sequoyah # (Auto) 0.5 Eos # (Auto) 0.6 H Baso # (Auto) 0.0 Abs Immat Gran (auto) 0.33 H Absolute Neuts (auto) 5.5 Absolute Nucleated RBC 0.0 Nucleated RBC % 0.3 H Sodium 134 L Potassium 4.0 Chloride 95 L Carbon Dioxide 31 H Anion Gap 8 BUN 11 Creatinine 0.80 Estim Creat Clear Calc 75 Estimated GFR > 60 Glucose 312 H POC Capill
--- NOTE | 2020-09-28 08:29 | PCOTNOTE ---
Attempted to see patient this am, however patient declined stating, No, I am going to be discharged today. Pt reported no concerns prior to discharge as pertains to OT.
[2020-09-28] MEDS: HYDROcodone/acetaminophen (*CRX) 5-325 MG TABLET 1 TAB PO (10:08)
--- NOTE | 2020-09-28 12:11 | PM.IMPN ---
Progress Note: A&P Assessment and Plan (1) Incisional hernia: Qualifiers: Obstruction and gangrene presence: without obstruction or gangrene Qualified Code(s): K43.2 - Incisional hernia without obstruction or gangrene Code(s): K43.2 - Incisional hernia without obstruction or gangrene Status: Chronic Assessment and Plan: Alice Connor is a 55 year old female the past medical history of diabetes hypertension patient had a complaint of multiple hernia and patient was seen by her surgeon Dr. Jeff, she was taken to OR on 09/21 and had repair of multiple incisional hernias with mesh, bilateral transversus abdominis myofascial flap advancement, 6 cm on the left, 5 cm on the right. LEONIDAS drains removed. Encouraged to ambulate more as she appears more sedentary. Can use more analgesia if she needs for her groin pain. Dc today, post op day 7. (2) IDDM (insulin dependent diabetes mellitus): Code(s): E11.9 - Type 2 diabetes mellitus without complications; Z79.4 - intermediate manager (current) use of insulin Status: Chronic Assessment and Plan: Continue patient DM regime (3) HTN (hypertension): Qualifiers: Hypertension type: essential hypertension Qualified Code(s): I10 - Essential (primary) hypertension Code(s): I10 - Essential (primary) hypertension Status: Chronic Assessment and Plan: BP is stable. 124/56 today Subjective Date/time seen: 09/28/20 12:11 Interval history: Geeta is a 55 year old female the past medical history of diabetes hypertension patient had a complaint of multiple hernia and patient was seen by her surgeon Dr. Jeff, she was taken to OR on 09/21 and had repair of multiple incisional hernias with mesh, bilateral transversus abdominis myofascial flap advancement, 6 cm on the left, 5 cm on the right. Pt is doing better today, some complaints of pain in the left groin and difficulty sleeping at night. Otherwise is ready for discharge. Review of Systems Review of Systems: All systems reviewed & are unremarkable except as noted in HPI and below Exam Narrative: Exam Narrative: Patient is comfortable LUNGS:Clear to auscultation HEART: S1S2 ABDOMEN: abdominal tenderness worse around left groin area, wounds dressing clean, BS present, no drains insitu Neuro: grossly intact LEGS: no edema Objective Data Vital Signs Vital Signs: Vital Signs - 24 hr 09/27/20 14:00 09/27/20 22:00 09/28/20 06:00 Temperature 36.8 C 36.1 C L 36.3 C L Pulse Rate 77 73 70 Respiratory Rate 16 18 21 H Blood Pressure 127/52 L 119/55 L 124/56 L Pulse Oximetry 94 96 100 Intake/Output Intake/Output: Intake & Output 09/25/20 09/26/20 09/27/20 09/28/20 23:59 23:59 23:59 23:59 Intake Total 2240 485 1170 1090 Output Total 1242 269 373 7612 Balance 998 -200 270 -10 Labs Labs: Laboratory Results - last 24 hr 09/27/20 09/27/20 09/28/20 16:28 21:04 05:17 WBC 8.6 RBC 2.95 L Hgb 9.1 L Hct 28.0 L MCV 94.9 MCH 30.8 MCHC 32.5 RDW 12.6 Plt Count 373 MPV 8.8 Immature Gran % (Auto) 3.8 H Neut % (Auto) 63.9 Lymph % (Auto) 18.8 Luna % (Auto) 6.1 Eos % (Auto) 7.1 H Baso % (Auto) 0.3 Lymph # (Auto) 1.62 Luna # (Auto) 0.5 Eos # (Auto) 0.6 H Baso # (Auto) 0.0 Abs Immat Gran (auto) 0.33 H Absolute Neuts (auto) 5.5 Absolute Nucleated RBC 0.0 Nucleated RBC % 0.3 H Sodium Potassium Chloride Carbon Dioxide Anion Gap BUN Creatinine Estim Creat Clear Calc Estimated GFR Glucose POC Capillary Glucose 304 H 375 H Calcium Magnesium 09/28/20 09/28/20 05:17 07:50 WBC RBC Hgb Hct MCV MCH MCHC RDW Plt Count MPV Immature Gran % (Auto) Neut % (Auto) Lymph % (Auto) Luna % (Auto) Eos % (Auto) Baso % (Auto) Lymph # (Auto) Luna # (Auto) Eos # (Auto) Baso # (Auto) Abs Immat Gran (auto)
--- NOTE | 2020-09-28 12:52 | PCWOUND ---
WOCN NOTE Patient was assessed this am. small friction area to the right buttock with maceration to surrounding tissue. no s/s of infection present. patient has triple care barrier antifungal cream to treat and protect tissue. all areas pradeep. area measures 1 cm in length by 0.4 cm in width by 0.1 cm in depth.
== END 2020-09-28 10:15 | disposition home or self-care (01) | DRG 354 ==
LOC: ANHSURGERY 10:48 → ANH2MED 10:48
PROVIDERS: Family Medicine; Admitting Provider Surgery; PCP Internal Medicine; Visit Provider Surgery
PROC: 0WQF0ZZ Repair Abdominal Wall, Open Approach (ICD-10-PCS; principal; 2020-09-21 10:30)
DX: K43.2 Incisional hernia without obstruction or gangrene (principal); D62 Acute posthemorrhagic anemia; D64.9 Anemia, unspecified; E11.9 Type 2 diabetes mellitus without complications; K43.9 Ventral hernia without obstruction or gangrene; I10 Essential (primary) hypertension; F41.8 Other specified anxiety disorders; M79.7 Fibromyalgia; G47.33 Obstructive sleep apnea (adult) (pediatric); E66.01 Morbid (severe) obesity due to excess calories; Z85.528 Personal history of other malignant neoplasm of kidney; Z68.33 Body mass index [BMI] 33.0-33.9, adult; Z90.710 Acquired absence of both cervix and uterus; Z90.49 Acquired absence of other specified parts of digestive tract; Z90.5 Acquired absence of kidney; Z87.891 Personal history of nicotine dependence
CPT/HCPCS: 36415; 80048; 82565; 83036; 83735; 85025; 85027; 87635; 97116; 97161; 97165; 97530; A9270; C1781; C9290; C9803; J0690; J1100; J1170; J1200; J1650; J1741; J1815; J1885; J2250; J2270; J2274; J2370; J2405; J2704; J2710; J3010; J3475; J7030; J7120; U0003

== ENCOUNTER 2020-10-12 10:58 | Outpatient (CLI) | payer OTHER, SELFPAY ==
--- NOTE | ~2020-10-12 | XR_ITS ---
XR hip LT min 2V DATE: 10/12/2020 11:29 INDICATION: Left hip pain following hernia surgery on 09/21/2020. No known injury. TECHNIQUE: AP and lateral views of left hip COMPARISON: None FINDINGS: There is mild osteoarthritis at the left hip. No fracture, dislocation, avascular necrosis or bone destruction is evident. IMPRESSION: No fracture or dislocation or bone destruction Mild left hip osteoarthritis Reviewed, dictated and finalized at location B. R GRINDER
--- NOTE | ~2020-10-12 | XR_ITS ---
XR pelvis 1-2V DATE: 10/12/2020 11:29 INDICATION: Left hip pain following hernia surgery on 09/21/2020. History of bursitis. No known injur y. TECHNIQUE: AP pelvis COMPARISON: 03/11/2017 lumbar spine FINDINGS: Status post L5 laminectomy and anterior (including interbody) and posterior spinal fusion i ncluding anterior plate and screws and posterior rods and screws. The pubic symphysis and sacroiliac joints are intact. No pelvic fracture or bone destruction is detec chhaya. No fracture or dislocation of either hip is evident. IMPRESSION: No evidence of pelvic fracture or bone destruction Status post anterior, interbody and posterior spinal fusion at L5-S1 Reviewed, dictated and finalized at location B. N TENDER
== END 2020-10-12 10:59 | disposition home or self-care (01) ==
LOC: CHSIMG 11:00
PROVIDERS: PCP Internal Medicine; Visit Provider Internal Medicine
DX: M25.552 Pain in left hip (principal)
CPT/HCPCS: 72170; 73502

== ENCOUNTER 2020-10-17 10:47 | Outpatient (CLI) | payer OTHER, SELFPAY ==
[2020-10-17 10:59] LABS: Basophils Percent Auto 0.6 % (0.2-1.2); Eosinophils Absolute Auto 0.7 K/mm3 (0-0.3); Eosinophils Percent Auto 9.4 % (0-4.4); Hematocrit 34.6 % (37.0-47.0); Hemoglobin 11.3 g/dL (12.0-15.0); Immature Granulocyte Absolute 0.02 K/mm3 (0.00-0.031); Immature Granulocyte Percent A 0.3 % (0-0.5); Lymphocytes Percent Auto 29.4 % (18.3-44.2); Mean Corpuscular HGB Conc 32.7 g/dl (32-36); Mean Corpuscular Hemoglobin 30.5 pg (26-34); Mean Corpuscular Volume 93.3 fl (80-100); Mean Platelet Volume 8.6 fl (7.4-10.4); Monocytes Absolute Auto 0.3 K/mm3 (0.1-0.6); Monocytes Percent Auto 4.1 % (2.6-8.5); Neutrophils Percent Auto 56.2 % (45.5-73.1); Platelet Count Result 425 k/mm3 (150-375); Red Blood Count 3.71 M/mm3 (4.2-5.4); Red Cell Distribution Width 13.2 % (11.5-14.5); White Blood Count 7.2 K/mm3 (4.5-10.0)
[2020-10-17 11:07] LABS: Blood Urea Nitrogen 13 mg/dL (8-26); Carbon Dioxide 21 mmol/L (22-30); Chloride 107 mmol/L (98-109); Estimated Glomerular Filt Rate > 60; Glucose 80 mg/dL (70-105); Potassium 4.3 mmol/L (3.5-4.9); Sodium 142 mmol/L (138-146)
[2020-10-17 16:46] LABS: Iron 95 ug/dL (37-170)
[2020-10-17 16:49] LABS: Alanine Aminotransferase 23 U/L (4-35); Albumin Level 4.5 g/dL (3.5-5.1); Alkaline Phosphatase 82 U/L (38-126); Anion Gap 9 mmol/L (8-16); Aspartate Amino Transferase 26 U/L (14-36); Bilirubin,Total 0.4 mg/dL (0.2-1.3); Blood Urea Nitrogen 13 mg/dL (7-17); Calcium 9.2 mg/dL (8.4-10.2); Carbon Dioxide 23 mmol/L (22-30); Chloride 108 mmol/L (98-107); Estimated Glomerular Filt Rate > 60; Glucose 81 mg/dL (65-105); Potassium 4.4 mmol/L (3.4-5.0); Sodium 140 mmol/L (137-145)
[2020-10-17 16:57] LABS: Percent Iron Saturation 20 % (20-50)
== END 2020-10-17 10:48 | disposition home or self-care (01) ==
PROVIDERS: PCP Internal Medicine; Visit Provider Internal Medicine Hematology & Oncology
DX: C64.9 Malignant neoplasm of unspecified kidney, except renal pelvis (principal)
CPT/HCPCS: 36415; 80048; 80053; 82728; 83540; 83550; 85025

== ENCOUNTER 2020-10-18 07:26 | Outpatient (CLI) | payer OTHER, SELFPAY ==
--- NOTE | ~2020-10-18 | CT_ITS ---
EXAMINATION: CT abdomen pelvis w con EXAM DATE: 10/18/2020 08:40 INDICATION: K43.2 - Incisional hernia without obstruction or gangrene LLQ pain, incisional hernia, di arrhea x 11mo, hx kidney CA . TECHNIQUE: Spiral CT of the abdomen and pelvis was performed following intravenous injection of 100 m L Omnipaque 350. Axial, coronal and sagittal images were reviewed. The dose-length product (DLP) fo r this examination was 1048.42 mGy-cm. The exposure was tailored according to patient size (auto mA exposure control), and iterative reconstruction (ASIR) was used as additional dose reduction techniqu e. Comparison is made to prior examination from 08/02/2020. FINDINGS: The liver, spleen, adrenal glands and pancreas are unremarkable. There are cholecystectomy clips. Portal and splenic veins are patent. Kidneys enhance symmetrically. There is no hydronephr osis. Lobular renal contours bilaterally with some scarring at the superior pole of the right kidney. Some adjacent surgical clips. The uterus is not identified and has likely been surgically resected. The bladder is unremarkable. There is no retroperitoneal or pelvic lymphadenopathy. There is mod erate scattered arteriosclerotic disease. Prior laparotomy. No abdominal wall hernia (previously there was dehiscence of the supraumbilical abd ominal wall with stomach bulging in). Appendix not specifically identified. The stomach and small mary wel are unremarkable. There is colonic fluid, correlate for diarrhea. No free intraperitoneal gas. The heart is normal in size. There are no pericardial or pleural effusions. The lung bases are u nremarkable. There are no osteoblastic or osteolytic lesions identified. L5-S1 fusion. IMPRESSION: 1. Colonic fluid. Possible diarrhea. 2. Laparotomy scar without herniation. 3. Surgical changes superior pole right kidney. Reviewed, dictated and finalized at location B. CAL PAYMENT POSTER
== END 2020-10-18 07:27 | disposition home or self-care (01) ==
LOC: CHSIMG 07:28
PROVIDERS: PCP Internal Medicine; Visit Provider Surgery
DX: K43.2 Incisional hernia without obstruction or gangrene (principal); R10.30 Lower abdominal pain, unspecified
CPT/HCPCS: 74177; Q9965

== ENCOUNTER 2020-10-26 07:43 | Outpatient (RCR) | payer OTHER, SELFPAY ==
--- NOTE | 2020-10-26 08:47 | PTOPEVAL ---
Thank you for referring Alice Connor to [facility].? The patient is scheduled to be seen for therapy? __3__x/week for 12 visits. Please review, sign, date and return this plan of care MARGARETTE. I agree with and certify that the following plan of care is medically necessary. Referring Physician Date Admitting Provider: Attending Provider: Nico Ibarra MD Referring Provider: *PT Outpatient Evaluation Start: 10/26/20 08:06 Freq: Status: Active Protocol: Document 10/26/20 08:07 JUANITA (Rec: 10/26/20 08:46 JUANITA [id number]) Outpatient Past Medical History Neurological History Hx Migraine Yes Cardiovascular History Hx Deep Vein Thrombosis Yes: PORTAL VEIN THROMBOSIS Hx Hypercholesterolemia Yes Hx Hypertension Yes Hx Other Cardiac Disorders Yes: PT DENIES CARDIAC SYMPTOMS - ACTIVE AT WORK ([employer]) Respiratory History Hx Bronchitis Yes Gastrointestinal History Hx Appendectomy Yes Hx Bowel Surgery Yes: HEMICOLECTOMY Genitourinary History Hx Nephrectomy Yes: RT PARTIAL NEPHRECTOMY 2000 Musculoskeletal History Hx Arthritis Yes: BACK, FINGERS Hx Back Pain Yes Hematological History Hx Anemia Yes Endocrine History Hx Diabetes Yes: IDDM HEENT History Hx Tonsillectomy Yes Hx Eye Surgery Yes: LASIC Hx Other HEENT Disorders Yes: LT PAROTIDECTOMY, GLASSES , BILATERAL HEARING AIDS Integumentary History Hx Shingles Yes Hx Other Skin Disorders Yes: RASH RT ARM AND RT SIDE Reproductive History Hx Post Menopausal Yes Psychosocial History Hx Other Psychiatric Disorders Yes: PANIC DISORDER Pain History History of Any Previous or Ongoing No Significant History Instance of Pain Anesthesia History Hx Anesthesia Reactions No Significant History Other History Hx Implanted Device Yes: BACK Evaluation Information Problem Diagnosis left groin pain, adductor strain Onset 09/21/20 Subjective Information Pt. reports that she underwent Query Text:As Reported By Patient/ hernia repair on 09/21/20. Family She reports that since surgery she has noticed pain in the left groin. She did undergo CT scan of the left hip which was normal with exception of some OA in the hip. She
--- NOTE | 2020-10-26 09:14 | PTOPEVAL ---
Thank you for referring Alice Connor to [facility].? The patient is scheduled to be seen for therapy? ____x/week for ___ weeks. Please review, sign, date and return this plan of care MARGARETTE. I agree with and certify that the following plan of care is medically necessary. Referring Physician Date Admitting Provider: Attending Provider: Nico Ibarra MD Referring Provider: *PT Outpatient Evaluation Start: 10/26/20 08:06 Freq: Status: Active Protocol: Document 10/26/20 08:07 JUANITA (Rec: 10/26/20 08:46 JUANITA [id number]) Outpatient Past Medical History Neurological History Hx Migraine Yes Cardiovascular History Hx Deep Vein Thrombosis Yes: PORTAL VEIN THROMBOSIS Hx Hypercholesterolemia Yes Hx Hypertension Yes Hx Other Cardiac Disorders Yes: PT DENIES CARDIAC SYMPTOMS - ACTIVE AT WORK ([employer]) Respiratory History Hx Bronchitis Yes Gastrointestinal History Hx Appendectomy Yes Hx Bowel Surgery Yes: HEMICOLECTOMY Genitourinary History Hx Nephrectomy Yes: RT PARTIAL NEPHRECTOMY 2000 Musculoskeletal History Hx Arthritis Yes: BACK, FINGERS Hx Back Pain Yes Hematological History Hx Anemia Yes Endocrine History Hx Diabetes Yes: IDDM HEENT History Hx Tonsillectomy Yes Hx Eye Surgery Yes: LASIC Hx Other HEENT Disorders Yes: LT PAROTIDECTOMY, GLASSES , BILATERAL HEARING AIDS Integumentary History Hx Shingles Yes Hx Other Skin Disorders Yes: RASH RT ARM AND RT SIDE Reproductive History Hx Post Menopausal Yes Psychosocial History Hx Other Psychiatric Disorders Yes: PANIC DISORDER Pain History History of Any Previous or Ongoing No Significant History Instance of Pain Anesthesia History Hx Anesthesia Reactions No Significant History Other History Hx Implanted Device Yes: BACK Evaluation Information Problem Diagnosis left groin pain, adductor strain Onset 09/21/20 Subjective Information Pt. reports that she underwent Query Text:As Reported By Patient/ hernia repair on 09/21/20. Family She reports that since surgery she has noticed pain in the left groin. She did undergo CT scan of the left hip which was normal with exception of some OA in the hip. She
--- NOTE | 2020-11-01 08:02 | PCPTNOTE ---
patient called and cancelled appt due to family member in household testing positive for covid. DIALLO
--- NOTE | 2020-11-13 12:21 | PCPTNOTE ---
11/13/20 - patient treated by Ashleigh Snyder DPT this date under supervision of Luis Fernando Evans DPT.
--- NOTE | 2020-11-27 14:24 | PTOPEVAL ---
Thank you for referring Alice Connor to [facility].? The patient is scheduled to be seen for therapy? ____x/week for ___ weeks. Please review, sign, date and return this plan of care MARGARETTE. I agree with and certify that the following plan of care is medically necessary. Referring Physician Date Admitting Provider: Attending Provider: Nico Ibarra MD Referring Provider: *PT Outpatient Evaluation Start: 10/26/20 08:06 Freq: Status: Active Protocol: Document 11/27/20 13:26 ACR (Rec: 11/27/20 14:03 ACR [id number]) Therapy Assessment Status Assessment Status Assessment Status Progress Outpatient Past Medical History Neurological History Hx Migraine Yes Cardiovascular History Hx Deep Vein Thrombosis Yes: PORTAL VEIN THROMBOSIS Hx Hypercholesterolemia Yes Hx Hypertension Yes Hx Other Cardiac Disorders Yes: PT DENIES CARDIAC SYMPTOMS - ACTIVE AT WORK ([employer]) Respiratory History Hx Bronchitis Yes Gastrointestinal History Hx Appendectomy Yes Hx Bowel Surgery Yes: HEMICOLECTOMY Genitourinary History Hx Nephrectomy Yes: RT PARTIAL NEPHRECTOMY 2000 Musculoskeletal History Hx Arthritis Yes: BACK, FINGERS Hx Back Pain Yes Hematological History Hx Anemia Yes Endocrine History Hx Diabetes Yes: IDDM HEENT History Hx Tonsillectomy Yes Hx Eye Surgery Yes: LASIC Hx Other HEENT Disorders Yes: LT PAROTIDECTOMY, GLASSES , BILATERAL HEARING AIDS Integumentary History Hx Shingles Yes Hx Other Skin Disorders Yes: RASH RT ARM AND RT SIDE Reproductive History Hx Post Menopausal Yes Psychosocial History Hx Other Psychiatric Disorders Yes: PANIC DISORDER Pain History History of Any Previous or Ongoing No Significant History Instance of Pain Anesthesia History Hx Anesthesia Reactions No Significant History Other History Hx Implanted Device Yes: BACK Evaluation Information Problem Diagnosis left groin pain, adductor strain Onset 09/21/20 Subjective Information Patient reports that her groin Query Text:As Reported By Patient/ pain has greatly improved but Family she is still unable to control hip abduction and actively adduct her leg. Patient states she has more pain in her upper back and
== END 2020-12-04 14:59 | disposition home or self-care (01) ==
LOC: CHSPT 07:43
PROVIDERS: PCP Internal Medicine; Visit Provider Internal Medicine
DX: S39.011A Strain of muscle, fascia and tendon of abdomen, initial encounter (principal)
CPT/HCPCS: 97014; 97110; 97161; G0283

== ENCOUNTER 2020-12-06 08:00 | Outpatient (CLI) | payer OTHER, SELFPAY ==
--- NOTE | ~2020-12-06 | MR_ITS ---
EXAMINATION: MR brain/brain stem wo con EXAM DATE: 12/06/2020 09:00 INDICATION: Headache, Tremors, Memory Loss. TECHNIQUE: Magnetic resonance imaging (MRI) of the brain/brain stem obtained without contrast. Wilbertoitt al T1, axial diffusion, gradient echo (T2*), T1, T2, FLAIR sequences obtained. There is no prior st udy for comparison. FINDINGS: There is vague symmetric central increased T2/flair signal intensity within the silvia of unc ertain clinical significance. Some considerations include prior episode of demyelinating process, re active astrocytosis (from etiology such as central pontine myelolysis or other insult). Glioma is not excludable. MRI brain with contrast should be obtained, however assuming there is no enhancement the differential diagnosis would still include these possibilities. There are scattered periventricular and subcortical T2/FLAIR hyperintensities, a non-specific finding with differential diagnosis including premature chronic small vessel ischemic disease (especially if the patient has cardiovascular risk factors), migraine headaches, demyelinating disease such as mult iple sclerosis or acute disseminated encephalomyelitis (ADEM), vasculopathy, lyme's disease or reacti ve astrocytosis (gliosis) secondary to nonspecific etiology. There are no areas of restricted diffusi on to suggest acute infarction. There is no acute hemorrhage seen on the T2*, a hemosiderin sensitiv e sequence. The ventricles are normal in size. There are no extra-axial collections. Flow voids ar e seen in the cerebral arteries on the T2-weighted sequences consistent with their expected patency. The orbits are unremarkable. Soft tissue is unremarkable. IMPRESSION: 1. Symmetric bilateral central pontine signal abnormality, could be reactive gliosis from unknown pr ior insult. Glioma not excludable. Recommend brain MR with contrast for further evaluation. 2. Scattered cerebral nonspecific white matter hyperintensities most likely microangiopathy. Reviewed, dictated and finalized at location B. ERCIAL DRIVER IMPRESSION: 1. Symmetric bilateral central pontine signal abnormality, could be reactive g liosis from unknown prior insult. Glioma not excludable. Recommend brain MR wit h contrast for further evaluation. 2. Scattered cerebral nonspecific white matter hyperintensities most likely mi croangiopathy.
[2020-12-06 08:16] LABS: Basophils Absolute Auto 0.06 K/mm3 (0.00-0.10); Basophils Percent Auto 0.5 % (0.0-1.0); Eosinophils Percent Auto 4.3 % (1.0-6.0); Hematocrit 36.9 % (35.0-49.0); Hemoglobin 12.4 g/dL (12.0-15.0); Immature Granulocyte Absolute 0.05 K/mm3 (0.00-0.00); Immature Granulocyte Percent A 0.4 % (0.0-0.0); Lymphocytes Percent Auto 20.8 % (18.0-42.0); Mean Corpuscular HGB Conc 33.6 g/dL (32.0-36.0); Mean Corpuscular Hemoglobin 30.9 pg (27.0-31.0); Mean Platelet Volume 8.7 fl (9.2-11.8); Monocytes Absolute Auto 0.66 K/mm3 (0.10-0.90); Monocytes Percent Auto 5.7 % (2.0-11.0); Neutrophils Absolute Auto 7.9 K/mm3 (1.7-7.2); Neutrophils Percent Auto 68.3 % (50.0-70.0); Platelet Count Result 373 K/mm3 (150-420); Red Blood Count 4.01 M/mm3 (4.20-5.40); Red Cell Distribution Width 12.4 % (11.6-14.4); White Blood Count 11.5 K/mm3 (4.8-10.8)
[2020-12-06 09:29] LABS: Hemoglobin A1C 6.8 % (<5.7)
[2020-12-06 09:45] LABS: Alanine Aminotransferase 40 U/L (14-59); Albumin Level 3.9 g/dL (3.4-5.0); Alkaline Phosphatase 94 U/L (46-116); Anion Gap 13 mmol/L (8-16); Aspartate Amino Transferase 24 U/L (15-37); Bilirubin,Total 0.2 mg/dL (0.00-1.00); Blood Urea Nitrogen 24 mg/dL (7-18); Calcium 8.9 mg/dL (8.5-10.1); Carbon Dioxide 22 mmol/L (21-32); Chloride 103 mmol/L (98-108); Cholesterol 170 mg/dL (0-200); Estimated Glomerular Filt Rate 55; Folic Acid 12.1 ng/mL (8.6->20); Free T4 Free Thyroxine 0.93 ng/dL (0.76-1.46); Glucose 222 mg/dL (70-99); HDL Direct 43 mg/dL (40-60); Osmolality Calculated 297 mOsm/kg (285-295); Potassium 4.2 mmol/L (3.5-5.1); Sodium 138 mmol/L (136-145); Thyroid Stimulating Hormone 3.42 uIU/mL (0.36-3.74); Total Protein 7.4 g/dL (6.4-8.2); Vitamin B12 1238 pg/mL (193-986)
[2020-12-06 09:49] LABS: LDL Cholesterol Calculated 20 mg/dL (<130); Triglycerides 534 mg/dL (0-150)
[2020-12-06 09:51] LABS: LDL Cholesterol Direct 72 mg/dL (0-130)
[2020-12-10 21:23] LABS: Vitamin D 25 Hydroxy 17 ng/mL (30-100)
== END 2020-12-06 08:01 | disposition home or self-care (01) ==
LOC: CHSIMG 08:06
PROVIDERS: PCP Internal Medicine
DX: R51.9 Headache, unspecified (principal); R25.1 Tremor, unspecified; R41.3 Other amnesia
CPT/HCPCS: 36415; 70551; 80053; 80061; 82306; 82607; 82746; 83036; 83721; 84439; 84443; 85025

== ENCOUNTER 2021-01-26 10:51 | Outpatient (CLI) | payer OTHER, SELFPAY ==
--- NOTE | ~2021-01-26 | CT_ITS ---
EXAMINATION: CT pelvis w con DATE: 01/26/2021 11:40 INDICATION: Anal abscess and perineal fistula presenting with anal/rectal pain. TECHNIQUE: Computed tomography (CT) of the pelvis was performed with 100 mL Omnipaque-350 intravenous contrast. Automated exposure control and iterative reconstruction technique were employed. The dose -length product was 796.01 mGy-cm. COMPARISON: 10/18/2020 FINDINGS: Visualized caudal aspect of the right hepatic lobe is normal. There are a few diverticula along the s igmoid colon without adjacent inflammatory change to suggest diverticulitis. No bowel obstruction. Bl adder is normal. The uterus is not identified and has likely been surgically resected. 1.5 cm right o varian cyst/follicle. No free fluid in the pelvis. No pathologically enlarged pelvic or inguinal lymp hadenopathy. From focal midline pelvic wall surgical scar. There is some asymmetric wall thickening w ith shouldering at the posterior aspect of the rectoanal junction which could be related to focal pro ctitis or malignancy. The attenuation appears higher and more heterogeneous than the fluid seen in th e remainder of the visualized colon consistent with diarrhea. 2.1 x 1.4 x 1.3 cm bilobed posterior chan perficial perianal abscess in the subcutaneous tissues at the caudal aspect of the gluteal cleft. No evident deeper intersphincteric or suprasphincteric extension. L5 laminectomy with combined instrumen chhaya anterior and posterior spinal fusion at L5-S1. IMPRESSION: 1. 2.1 x 1.4 x 1.3 similar bilobed superficial posterior perianal abscess. 2. Asymmetric wall thickening at the posterior rectal anal junction which raises concern for malignan cy. Differential would include focal proctitis. Recommend proctoscopy for further evaluation. Reviewed, dictated and finalized at location B. URCE RECOVERY ENGINEER IMPRESSION: 1. 2.1 x 1.4 x 1.3 similar bilobed superficial posterior perianal abscess. 2. Asymmetric wall thickening at the posterior rectal anal junction which raise s concern for malignancy. Differential would include focal proctitis. Recommend proctoscopy for further evaluation.
[2021-01-26 11:17] LABS: Estimated Glomerular Filt Rate 49
== END 2021-01-26 10:52 | disposition home or self-care (01) ==
LOC: CHSIMG 10:53
PROVIDERS: PCP Nurse Practitioner Family; Visit Provider Nurse Practitioner Family
DX: K61.0 Anal abscess (principal)
CPT/HCPCS: 72193; Q9967

== ENCOUNTER 2021-03-24 17:33 | Observation (INO) | payer OTHER, MEDICAID, SELFPAY ==
--- NOTE | ~2021-03-24 | CT_ITS ---
EXAMINATION: CT abdomen pelvis w con DATE: 03/24/2021 19:31 INDICATION: Abdominal pain TECHNIQUE: Computed tomography (CT) of the abdomen and pelvis was performed with 100 mL Omnipaque-350 intravenous contrast. Automated exposure control and iterative reconstruction technique were employe d. The dose-length product was 937.67 mGy-cm. COMPARISON: 01/26/2021 and 10/18/2020 FINDINGS: Mild discoid atelectasis at the lingula. Heart size is normal. No pericardial or pleural effusion. Ch olecystectomy clips the gallbladder fossa. Liver, spleen, pancreas and bilateral adrenal glands are n ormal. Scarring and suture line along the upper pole of the right kidney with several adjacent surgic al clips suggesting prior partial nephrectomy. There is enhancing urothelial thickening along the rig ht ureter extending into the right renal pelvis and calyces raising concern for ascending urinary tra ct infection. Postoperative change of prior right hemicolectomy. There is new wall thickening along t he remaining colon consistent with colitis. No pneumatosis or portal venous gas. More proximal small bowel is normal with no obstruction. Bladder is normal. The uterus is not identified and has likely b een surgically resected. 1.5 cm right ovarian cyst/follicle. Left ovary is unremarkable. No free intr aperitoneal gas or fluid. No pathologically enlarged abdominal or pelvic lymphadenopathy. Stranding i n the subcutaneous fat of the anterior wall of the left lower quadrant likely related to subcutaneous injections. L5 laminectomy with combined instrumented L5-S1 anterior and posterior spinal fusion. IMPRESSION: 1. Colitis with differential in order of likelihood including infectious, inflammatory or ischemic et iologies. 2. Diffuse enhancing urothelial thickening at the right renal collecting system and ureter suggesting ascending urinary tract infection. Correlate with urinalysis. 3. Reviewed, dictated and finalized at location A. IMPRESSION: 1. Colitis with differential in order of likelihood including infectious, infla mmatory or ischemic etiologies. 2. Diffuse enhancing urothelial thickening at the right renal collecting system and ureter suggesting ascending urinary tract infection. Correlate with urinal ysis. 3.
--- NOTE | 2021-03-24 18:15 | ECG_ITS ---
Measurements Intervals Hilliard Rate: P: DE: QRS: QRSD: T: QT: QTc: Interpretive Statements SINUS RHYTHM DELAYED PRECORDIAL R/S TRANSITION BASELINE WANDER- II, AVF, V1, V4 BORDERLINE ECG Electronically Signed On 03-26-2021 12:23:37 CDT by Derrell Abdalla D.O.
[2021-03-24] MEDS: ONDANSETRON INJ 4 MG/2 ML VIAL IV PUSH (18:20)
[2021-03-24] MEDS: SODIUM CHLORIDE 0.9% IV 1,000 ML 999 ML IV CONT (18:20)
[2021-03-24 18:32] LABS: Basophils Absolute Auto 0.05 K/mm3 (0.00-0.10); Basophils Percent Auto 0.4 % (0.0-1.0); Eosinophils Absolute Auto 0.49 K/mm3 (0.02-0.50); Eosinophils Percent Auto 3.7 % (1.0-6.0); Hematocrit 34.1 % (35.0-49.0); Hemoglobin 11.5 g/dL (12.0-15.0); Immature Granulocyte Absolute 0.06 K/mm3 (0.00-0.00); Immature Granulocyte Percent A 0.5 % (0.0-0.0); Lymphocytes Absolute Auto 2.37 K/mm3 (1.10-4.50); Lymphocytes Percent Auto 18.1 % (18.0-42.0); Mean Corpuscular HGB Conc 33.7 g/dL (32.0-36.0); Mean Corpuscular Hemoglobin 31.1 pg (27.0-31.0); Mean Corpuscular Volume 92.2 fL (78.0-102.0); Mean Platelet Volume 8.5 fl (9.2-11.8); Monocytes Absolute Auto 0.86 K/mm3 (0.10-0.90); Monocytes Percent Auto 6.6 % (2.0-11.0); Neutrophils Absolute Auto 9.3 K/mm3 (1.7-7.2); Neutrophils Percent Auto 70.7 % (50.0-70.0); Platelet Count Result 315 K/mm3 (150-420); White Blood Count 13.1 K/mm3 (4.8-10.8)
[2021-03-24 18:36] VITALS: BP 142/66; PULSE 75; RESP 20; TEMP 36.8; O2SAT 98
[2021-03-24 18:46] LABS: INR 0.9; Partial Thromboplastin Time 22.2 SEC (23.90-30.70); Prothrombin Time 9.8 Seconds (9.50-12.10)
[2021-03-24 18:54] LABS: Alanine Aminotransferase 47 U/L (14-59); Albumin Level 3.7 g/dL (3.4-5.0); Alkaline Phosphatase 91 U/L (46-116); Anion Gap 14 mmol/L (8-16); Aspartate Amino Transferase 20 U/L (15-37); Bilirubin,Total 0.5 mg/dL (0.00-1.00); Blood Urea Nitrogen 35 mg/dL (7-18); Calcium 8.8 mg/dL (8.5-10.1); Carbon Dioxide 17 mmol/L (21-32); Chloride 105 mmol/L (98-108); Estimated CRCL calculation 46 ml/min; Estimated Glomerular Filt Rate 40; Glucose 185 mg/dL (70-99); Lipase 58 U/L (73-393); NT Pro B Type Natriuretic Pept 40 pg/mL (0-125); Osmolality Calculated 295 mOsm/kg (285-295); Potassium 4.2 mmol/L (3.5-5.1); Sodium 136 mmol/L (136-145); Troponin I 5.7 ng/L (0.00-60.4)
[2021-03-24 19:01] LABS: Lactic Acid Reflex 2.6 mmol/L (0.4-2.0)
[2021-03-24] MEDS: ACETAMINOPHEN 500 MG TABLET 1000 MG PO (19:11)
[2021-03-24 19:45] LABS: Add Urine Microscopic? YES; Appearance Urine Cloudy (Clear); Bilirubin Urine Negative (Negative); Blood Urine 3+ (Negative); Color Urine Yellow (Yellow); Glucose Urine UA Negative (Negative); Ketones Urine Negative (Negative); Leukocyte Esterase Ur 3+ LEU/UL (Negative); Nitrate Urine Positive (Negative); Protein Urine 2+ (Negative); Specific Grav Ur 1.025 (1.010-1.020); Urobilinogen Urine 0.2 mg/dL (0.2-1.0); pH Urine 5.5 (5.0-8.0)
[2021-03-24 19:50] LABS: Bacteria Urine 2+ /hpf; RBC Urine 21-50 /hpf (0-2); Squamous Epithelial Cell Urine Rare /hpf (Few); WBC Urine 31-50 /hpf (0-3)
--- NOTE | 2021-03-24 20:09 | ED.ABDPAIN ---
HPI - Abdominal Pain General Chief Complaint: Abdominal Pain Stated Complaint: abd pain,dizziness Source: patient Mode of arrival: ambulatory Limitations: no limitations History of Present Illness HPI narrative: this is a 55-year-old female presents with some abdominal pain localizing to the suprapubic area and left flank area that started approximately 1 to 2 days ago has been getting worse with some, with some nausea with no vomiting has a history of hypertension hyperlipidemia and reflux disease. The patient has some symptoms started approximately 2 days ago and has been getting worse she has been having some burning with some dysuria with no hematuria. Patient has a history of diabetes and currently on insulin. Patient also complains of some dizziness with a slight headache with no blurry vision no neck pain or neck stiffness no fever or chills. MD elicited complaint: abdominal pain and flank pain Pertinent past history: past UTI Onset (ago): day(s) Pain Consistency: constant Location: L flank and suprapubic Severity: moderate Pain scale (0-10): 6 Quality: aching Radiation: suprapubic Migration to: L flank Exacerbating factors: nothing Relieving factors: nothing Associated symptoms: nausea and other ( headache with dizziness) Related Data Home Medications Medication Instructions Recorded Confirmed ascorbate calcium (vitamin C) 500 500 mg PO DAILY 10/19/19 03/24/21 mg tablet ezetimibe 10 mg tablet 10 mg PO HS 10/19/19 03/24/21 losartan 25 mg tablet 25 mg PO HS 10/19/19 03/24/21 omeprazole 40 mg capsule,delayed 40 mg PO QAM 10/19/19 03/24/21 release pravastatin 40 mg tablet 40 mg PO HS 10/19/19 03/24/21 sertraline 100 mg tablet 100 mg PO HS 10/19/19 03/24/21 insulin glargine 100 unit/mL 40 unit SUB-Q BID ml 02/21/20 03/24/21 subcutaneous solution linagliptin 2.5 mg-metformin 1,000 1 tablet PO HS tablet 03/06/20 03/24/21 mg tablet cyanocobalamin (vitamin B-12) 1,000 mcg PO DAILY 09/11/20 03/24/21 [Vitamin B-12] duloxetine 30 mg PO BID 09/11/20 03/24/21 ergocalciferol (vitamin D2) 50,000 unit PO MONTHLY 09/11/20 03/24/21 ferrous fumarate 324 mg PO HS 09/11/20 03/24/21 donepezil 10 mg PO HS 03/24/21 03/24/21 hydroxyzine HCl 25 mg PO BID 03/24/21 03/24/21 memantine 10 mg PO HS 03/24/21 03/24/21 Allergies Allergy/AdvReac Type Severity Reaction Status Date / Time amoxicillin Allergy Unknown RASH Verified 03/24/21 18:46 clavulanic acid Allergy Unknown RASH Verified 03/24/21 18:46 Review of Systems Review of Systems: All systems reviewed & are unremarkable except as noted in HPI and below PMFSH Past Medical History Medical History Anemia Anxiety Cancer Depression Fibromyalgia High cholesterol History of blood clots History of renal cell carcinoma HTN (hypertension) IDDM (insulin dependent diabetes mellitus) Morbid obesity Nausea and vomiting UMU (obstructive sleep apnea) Portal vein thrombosis Rectal prolapse Right-sided thoracic back pain Smoker Surgical History Surgical History H/O: hysterectomy History of back surgery History of History of cholecystectomy History of colonoscopy History of nephrectomy History of right hemicolectomy hand access laparoscopic, right hemicolectomy open left colectomy with ileo sigmoid anastomosis, takedown splenic flexure, small-bowel resection with anastomosis x2 12/08/19 Hx of tonsillectomy Incisional hernia 09/21/20 Repair multiple incisional hernias with mesh, bilateral transversus abdominis myofascial flap advancement, 6 cm on the left, 5 cm on the right Family History Family History Mother Hypertension Sibling Lung cancer Colon polyp Unknown Diabetes mellitus Cerebrovascular accident Hypertension Social History Social History Smoking packs per day: 0.5 Smoking
[2021-03-24 20:18] VITALS: BP 113/65; PULSE 76; RESP 20; TEMP 36.9; O2SAT 96
[2021-03-24] MEDS: levoFLOXacin 500 MG/D5W 100 ML 500 MG/100 ML BAG 100 MG IVPB (20:28)
--- NOTE | 2021-03-24 20:31 | PC.NURSE ---
nurse HUAN Castillo. here to transport pt to floor. pt alert /oriented. no concerns at this time
[2021-03-24] MEDS: SODIUM CHLORIDE 0.9% IV 1,000 ML 100 ML IV CONT (20:57)
[2021-03-24 21:06] LABS: Glucose Point of Care 147 (65-105)
[2021-03-24] MEDS: PRAVASTATIN SODIUM 20 MG TABLET 40 MG PO (21:09)
[2021-03-24] MEDS: DONEPEZIL HCL 5 MG TABLET 10 MG PO (21:09)
[2021-03-24] MEDS: hydrOXYzine HCL 25 MG TABLET PO (21:09)
[2021-03-24] MEDS: LOSARTAN POTASSIUM 25 MG TABLET PO (21:09)
[2021-03-24] MEDS: MEMANTINE 5 MG TABLET 10 MG PO (21:09)
[2021-03-24] MEDS: EZETIMIBE 10 MG TABLET PO (21:09)
[2021-03-24] MEDS: DULoxetine HCL 30 MG CAPSULE.DR PO (21:09)
[2021-03-24] MEDS: SERTRALINE HCL 50 MG TABLET 100 MG PO (21:10)
[2021-03-24] MEDS: INSULIN GLARGINE (*BKC) 100 UNITS/ML 40 UNITS SUB-Q (21:11)
--- NOTE | 2021-03-24 21:26 | PC.NURSE ---
Patient admitted to room 205 per wheelchair, is alert and oriented x 3, no c/o pain at present, meds per orders, oriented to unit, call light in reach.
[2021-03-24 21:28] VITALS: BMI 33.8
[2021-03-24 21:28] LABS: Reflex Lactic Acid Yes or No Add Lactic
[2021-03-24 21:36] VITALS: BP 128/63; PULSE 73; RESP 20; TEMP 36.2; O2SAT 97
[2021-03-24 22:17] LABS: Lactic Acid 1.6 mmol/L (0.4-2.0)
[2021-03-24] MEDS: ACETAMINOPHEN 325 MG TABLET 650 MG PO (22:53)
[2021-03-25] VITALS: BP 145/67; PULSE 74; RESP 20; TEMP 36.2; O2SAT 97
[2021-03-25 04:00] VITALS: BP 118/67; PULSE 70; RESP 16; TEMP 36.1; O2SAT 97
[2021-03-25] MEDS: metroNIDAZOLE 500 MG/ISO 100ML 500 MG/100 ML BAG 100 MG IVPB ×3 (06:04→21:14)
[2021-03-25 06:19] LABS: Basophils Absolute Auto 0.03 K/mm3 (0.00-0.10); Basophils Percent Auto 0.4 % (0.0-1.0); Eosinophils Absolute Auto 0.46 K/mm3 (0.02-0.50); Eosinophils Percent Auto 5.4 % (1.0-6.0); Hematocrit 31.8 % (35.0-49.0); Hemoglobin 10.5 g/dL (12.0-15.0); Immature Granulocyte Absolute 0.03 K/mm3 (0.00-0.00); Immature Granulocyte Percent A 0.4 % (0.0-0.0); Lymphocytes Absolute Auto 1.84 K/mm3 (1.10-4.50); Lymphocytes Percent Auto 21.7 % (18.0-42.0); Mean Corpuscular Hemoglobin 31.1 pg (27.0-31.0); Mean Corpuscular Volume 94.1 fL (78.0-102.0); Mean Platelet Volume 8.5 fl (9.2-11.8); Monocytes Absolute Auto 0.69 K/mm3 (0.10-0.90); Monocytes Percent Auto 8.2 % (2.0-11.0); Neutrophils Absolute Auto 5.4 K/mm3 (1.7-7.2); Neutrophils Percent Auto 63.9 % (50.0-70.0); Platelet Count Result 273 K/mm3 (150-420); Red Blood Count 3.38 M/mm3 (4.20-5.40); Red Cell Distribution Width 12.1 % (11.6-14.4); White Blood Count 8.5 K/mm3 (4.8-10.8)
[2021-03-25 06:32] LABS: Alanine Aminotransferase 43 U/L (14-59); Albumin Level 3.2 g/dL (3.4-5.0); Alkaline Phosphatase 86 U/L (46-116); Anion Gap 11 mmol/L (8-16); Aspartate Amino Transferase 21 U/L (15-37); Bilirubin,Total 0.5 mg/dL (0.00-1.00); Blood Urea Nitrogen 27 mg/dL (7-18); Calcium 8.1 mg/dL (8.5-10.1); Carbon Dioxide 21 mmol/L (21-32); Chloride 107 mmol/L (98-108); Estimated CRCL calculation 55 ml/min; Estimated Glomerular Filt Rate 50; Glucose 83 mg/dL (70-99); Osmolality Calculated 292 mOsm/kg (285-295); Sodium 139 mmol/L (136-145); Total Protein 6.6 g/dL (6.4-8.2)
[2021-03-25 06:34] LABS: Lactic Acid Reflex 1.3 mmol/L (0.4-2.0)
[2021-03-25] MEDS: ACETAMINOPHEN 325 MG TABLET 650 MG PO (07:23)
[2021-03-25 07:28] VITALS: BP 138/74; PULSE 78; RESP 16; TEMP 36.1; O2SAT 99
[2021-03-25 08:00] LABS: Glucose Point of Care 95 (65-105)
[2021-03-25] MEDS: PANTOPRAZOLE 40 MG TABLET PO (08:07)
[2021-03-25] MEDS: ASCORBIC ACID 500 MG TABLET PO (08:07)
[2021-03-25] MEDS: DULoxetine HCL 30 MG CAPSULE.DR PO ×2 (08:07→20:49)
[2021-03-25] MEDS: CYANOCOBALAMIN 1,000 MCG TABLET 1000 MCG PO (08:07)
[2021-03-25] MEDS: INSULIN GLARGINE (*BKC) 100 UNITS/ML 40 UNITS SUB-Q ×2 (08:08→21:02)
[2021-03-25] MEDS: hydrOXYzine HCL 25 MG TABLET PO ×2 (08:10→21:01)
--- NOTE | 2021-03-25 08:20 | PM.IMHP ---
H&P: HPI History of Present Illness Date/Time: 03/25/21 08:20 this is a 55-year-old female who presented to our urgent care with abdominal pain and nausea. Patient has a past medical history of anemia, anxiety, cancer, depression, fibromyalgia, high cholesterol, history of blood clots, history of renal cell carcinoma, hypertension, diabetes type 2, morbidly obese, nausea vomiting, sleep apnea and tobacco dependence. a couple days ago she started experiencing nausea with no vomiting and left side abdominal and flank pain patient denies frequency urgencydysuria or hematuria. Patient did not do anything at home to relieve her symptoms. Patient continues to have left-sided abdominal and flank pain with nausea she also complains of a migraine headache which is not new to her. On admission patient's WBC 13.1, hemoglobin 11.5, hematocrit 34.1, platelets 315,. Sodium 136, potassium 4.2, BUN 35, creatinine 1.35, lactic acid 2.6, BUN 40, troponin 5.7, UA cloudy, specific gravity 0.025, protein , blood, nitrate, leukocyte Estrace, bacteriapositive ,blood positive pending . CT of the abdomen indicates colitis urinary tract infection. Patient is being admitted for colitis with pyelonephritis. Disposition discharge home observation time spent 60 minutes Chief Complaint: left abdominal and flank pain with nausea Review of Systems Review of Systems: Narrative: A 14 organ system Review of Systems was performed and pertinent positives included in the HPI, otherwise remaining ROS is negative. [facility] Past Medical History Medical History Anemia Anxiety Cancer Depression Fibromyalgia High cholesterol History of blood clots History of renal cell carcinoma HTN (hypertension) IDDM (insulin dependent diabetes mellitus) Morbid obesity Nausea and vomiting UMU (obstructive sleep apnea) Portal vein thrombosis Rectal prolapse Right-sided thoracic back pain Smoker Surgical History Surgical History H/O: hysterectomy History of back surgery History of History of cholecystectomy History of colonoscopy History of nephrectomy History of right hemicolectomy hand access laparoscopic, right hemicolectomy open left colectomy with ileo sigmoid anastomosis, takedown splenic flexure, small-bowel resection with anastomosis x2 12/08/19 Hx of tonsillectomy Incisional hernia 09/21/20 Repair multiple incisional hernias with mesh, bilateral transversus abdominis myofascial flap advancement, 6 cm on the left, 5 cm on the right Family History Family History Mother Hypertension Sibling Lung cancer Colon polyp Unknown Diabetes mellitus Cerebrovascular accident Hypertension Social History Social History Smoking packs per day: 0.5 Smoking cigarettes per day: 10.0 Years smoked: 25 Smoking pack-years: 12.50 Smoking status: Never smoker Tobacco type: cigarettes Second hand tobacco smoke exposure: No Smoking end date: 08/25/20 Alcohol intake: never Substance use: never Substance use type: does not use Gender identity (if verbalized by the patient): Female Spiritual care concerns: No Agree to blood products: Yes Meds Home Medications and Allergies Home Medications Medication Instructions Recorded Confirmed Type ascorbate calcium (vitamin C) 500 500 mg PO DAILY 10/19/19 03/24/21 History mg tablet ezetimibe 10 mg tablet 10 mg PO HS 10/19/19 03/24/21 History losartan 25 mg tablet 25 mg PO HS 10/19/19 03/24/21 History omeprazole 40 mg capsule,delayed 40 mg PO QAM 10/19/19 03/24/21 History release pravastatin 40 mg tablet 40 mg PO HS 10/19/19 03/24/21 History sertraline 100 mg tablet 100 mg PO HS 10/19/19 03/24/21 History insulin glargine 100 unit/mL 40 unit SUB-Q BID ml 02/21/20 03/24/21 History subcutaneous solution linagliptin 2.5
[2021-03-25] MEDS: SODIUM CHLORIDE 0.9% IV 1,000 ML 100 ML IV CONT (09:48)
[2021-03-25 11:46] LABS: Glucose Point of Care 125 (65-105)
[2021-03-25 12:00] VITALS: BP 130/63; PULSE 81; RESP 18; TEMP 36.4; O2SAT 96
[2021-03-25] MEDS: traMADol HCL (*CRX) 25 MG TABLET PO (15:29)
[2021-03-25] MEDS: ONDANSETRON HCL ODT 4 MG TABLET PO (15:36)
[2021-03-25 16:00] VITALS: BP 117/58; PULSE 82; RESP 18; TEMP 36.5; O2SAT 95
[2021-03-25 16:44] LABS: Glucose Point of Care 143 (65-105)
[2021-03-25] MEDS: PRAVASTATIN SODIUM 20 MG TABLET 40 MG PO (20:50)
[2021-03-25 20:57] LABS: Glucose Point of Care 218 (65-105)
[2021-03-25] MEDS: DONEPEZIL HCL 5 MG TABLET 10 MG PO (21:01)
[2021-03-25] MEDS: LOSARTAN POTASSIUM 25 MG TABLET PO (21:01)
[2021-03-25] MEDS: EZETIMIBE 10 MG TABLET PO (21:01)
[2021-03-25] MEDS: MEMANTINE 5 MG TABLET 10 MG PO (21:02)
[2021-03-25] MEDS: SERTRALINE HCL 50 MG TABLET 100 MG PO (21:02)
[2021-03-25] MEDS: levoFLOXacin 500 MG/D5W 100 ML 500 MG/100 ML BAG 100 MG IVPB (22:40)
[2021-03-26] VITALS: BP 125/59; PULSE 78; RESP 18; TEMP 36.3; O2SAT 97
--- NOTE | 2021-03-26 01:10 | PC.NURSE ---
Patient's IV infiltrated. Site red and swollen. contacted order received to DC Flagyl IVPB and start oral flagyl and DC IV site
[2021-03-26 05:42] LABS: Hematocrit 30.2 % (35.0-49.0); Mean Corpuscular HGB Conc 33.1 g/dL (32.0-36.0); Mean Corpuscular Hemoglobin 31.1 pg (27.0-31.0); Mean Corpuscular Volume 93.8 fL (78.0-102.0); Mean Platelet Volume 8.5 fl (9.2-11.8); Platelet Count Result 260 K/mm3 (150-420); Red Blood Count 3.22 M/mm3 (4.20-5.40); Red Cell Distribution Width 11.9 % (11.6-14.4); White Blood Count 5.9 K/mm3 (4.8-10.8)
[2021-03-26 05:52] LABS: Alanine Aminotransferase 45 U/L (14-59); Albumin Level 3.1 g/dL (3.4-5.0); Alkaline Phosphatase 87 U/L (46-116); Anion Gap 9 mmol/L (8-16); Aspartate Amino Transferase 22 U/L (15-37); Bilirubin,Total 0.4 mg/dL (0.00-1.00); Blood Urea Nitrogen 22 mg/dL (7-18); Calcium 8.3 mg/dL (8.5-10.1); Carbon Dioxide 22 mmol/L (21-32); Chloride 107 mmol/L (98-108); Estimated CRCL calculation 56 ml/min; Estimated Glomerular Filt Rate 51; Glucose 123 mg/dL (70-99); Magnesium 1.4 mg/dL (1.8-2.4); Osmolality Calculated 290 mOsm/kg (285-295); Potassium 3.9 mmol/L (3.5-5.1); Sodium 138 mmol/L (136-145); Total Protein 6.4 g/dL (6.4-8.2)
[2021-03-26] MEDS: metroNIDAZOLE 250 MG TABLET 500 MG PO (06:00)
[2021-03-26 06:01] LABS: Lactic Acid Reflex 1.5 mmol/L (0.4-2.0)
[2021-03-26 07:35] VITALS: BP 134/69; PULSE 76; RESP 16; TEMP 35.7; O2SAT 97
[2021-03-26 07:43] LABS: Glucose Point of Care 129 (65-105)
[2021-03-26] MEDS: hydrOXYzine HCL 25 MG TABLET PO (08:44)
[2021-03-26] MEDS: CYANOCOBALAMIN 1,000 MCG TABLET 1000 MCG PO (08:44)
[2021-03-26] MEDS: ASCORBIC ACID 500 MG TABLET PO (08:44)
[2021-03-26] MEDS: DULoxetine HCL 30 MG CAPSULE.DR PO (08:44)
[2021-03-26] MEDS: PANTOPRAZOLE 40 MG TABLET PO (08:44)
[2021-03-26] MEDS: INSULIN GLARGINE (*BKC) 100 UNITS/ML 40 UNITS SUB-Q (09:01)
[2021-03-26] MEDS: MAGNESIUM OXIDE 400 MG TABLET PO (09:01)
--- NOTE | 2021-03-26 10:49 | P.DS_ITS ---
DS: Admitting Diagnosis Admitting Diagnosis Admitting Diagnosis: Pyelonephritis <Yonas FordeBora Petersen APN-C - Last Filed: 03/26/21 11:05> DS: Discharge Diagnosis Discharge Diagnosis (1) Acute pyelonephritis: Code(s): N10 - Acute pyelonephritis <Yonas FordeBora AlhajiLHU merchant-C - Last Filed: 03/26/21 11:05> Status: Acute <Yonas ManeLUH merchant-C - Last Filed: 03/26/21 11:05> Assessment and Plan: * as evidence by positive leukocytes, leukocyte Estrace,nitrates, protein, * CT of the abdomen indicates ascending urinary tract infection * continue Levo day 1 * continue pain medication * UA and blood culture pending blood culture collected after the use of antibiotics 03/26/2021 Blood and UA Cx still pending, Will continue Levaquin on DC, Pt to follow up with PCP in about 1 week, Pt not having any UTI symptoms <Yonas FordeBora Petersen APN-C - Last Filed: 03/26/21 11:05> (2) Colitis presumed infectious: Code(s): K52.9 - Noninfective gastroenteritis and colitis, unspecified <Yonas FordeBora Petersen APN-C - Last Filed: 03/26/21 11:05> Status: Acute <Yonas FordeBora Petersen APN-C - Last Filed: 03/26/21 11:05> Assessment and Plan: * CT of the abdomen indicates colitis * continue Flagyl * blood culture pending collected after antibiotic treatment 03/26/2021 Will continue Flagyl on DC, Pt to f/u with PCP <Yonas Petersen APN- C - Last Filed: 03/26/21 11:05> (3) Anemia: Qualifiers: Anemia type: unspecified type Qualified Code(s): D64.9 - Anemia, unspecified <Yonas EulaBora Petersen APN-C - Last Filed: 03/26/21 11:05> Code(s): D64.9 - Anemia, unspecified <Yonas EulaBora Petersen APN-C - Last Filed: 03/26/21 11:05> Status: Acute <Yonas EulaBora Petersen APN-C - Last Filed: 03/26/21 11:05> Assessment and Plan: * H&H 10.5 and 31.8, baseline H&H appears to be * continue iron supplement * no active bleeding noted 03/26/2021 Stable chronic condition, H/H 1030.2 <APRYL Sanchez - Last Filed: 03/26/21 11:05> (4) IDDM (insulin dependent diabetes mellitus): Code(s): E11.9 - Type 2 diabetes mellitus without complications; Z79.4 - terminal computer operator (current) use of insulin <APRYL Sanchez - Last Filed: 03/26/21 11:05> Status: Chronic <APRYL Sanchez - Last Filed: 03/26/21 11:05> Assessment and Plan: * stable * continue home medication * continue Accu-Chek sliding scale and hypoglycemic protocol * will adjust medication as needed * continue diabetic diet 03/26/2021 Glucose have been pretty well controlled during her hospitalization, will send home with same home medications. <APRYL Sanchez - Last Filed: 03/26/21 11:05> (5) HTN (hypertension): Qualifiers: Hypertension type: essential hypertension Qualified Co de(s): I10 - Essential (primary) hypertension <APRYL Sanchez - Last Filed: 03/26/21 11:05> Code(s): I10 - Essential (primary) hypertension <APRYL Sanchez - Last Filed: 03/26/21 11:05> Status: Chronic <APRYL Sanchez - Last Filed: 03/26/21 11:05> Assessment and Plan: * blood pressure 138/74 * continue losartan 25 mg HS * vital signs as ordered * will adjust medication as needed 03/26/2021 VSS, no adjustments to medications have been made. <APRYL Sanchez - Last Filed: 03/26/21 11:05> (6) Migraine: Qualifiers: Intractability: intractable Migraine type: without aura Status migrainosus presence: with status migrainosus Qualified Code(s): G43
--- NOTE | 2021-03-26 10:49 | PM.DS ---
DS: Admitting Diagnosis Admitting Diagnosis Admitting Diagnosis: Pyelonephritis <Yonas FordeBora Petersen APN-C - Last Filed: 03/26/21 11:05> DS: Discharge Diagnosis Discharge Diagnosis (1) Acute pyelonephritis: Code(s): N10 - Acute pyelonephritis <Yonas ManeLUH merchant-C - Last Filed: 03/26/21 11:05> Status: Acute <Yonas ManeLUH merchant-C - Last Filed: 03/26/21 11:05> Assessment and Plan: as evidence by positive leukocytes, leukocyte Estrace,nitrates, protein, CT of the abdomen indicates ascending urinary tract infection continue Levo day 1 continue pain medication UA and blood culture pending blood culture collected after the use of antibiotics 03/26/2021 Blood and UA Cx still pending, Will continue Levaquin on DC, Pt to follow up with PCP in about 1 week, Pt not having any UTI symptoms <Yonas FordeBora Petersen APN-C - Last Filed: 03/26/21 11:05> (2) Colitis presumed infectious: Code(s): K52.9 - Noninfective gastroenteritis and colitis, unspecified <Yonas FordeBora Petersen APN-C - Last Filed: 03/26/21 11:05> Status: Acute <Yonas FordeBora Petersen APN-C - Last Filed: 03/26/21 11:05> Assessment and Plan: CT of the abdomen indicates colitis continue Flagyl blood culture pending collected after antibiotic treatment 03/26/2021 Will continue Flagyl on DC, Pt to f/u with PCP <Yonas Petersen APN-C - Last Filed: 03/26/21 11:05> (3) Anemia: Qualifiers: Anemia type: unspecified type Qualified Code(s): D64.9 - Anemia, unspecified <Yonas EulaBora Petersen APN-C - Last Filed: 03/26/21 11:05> Code(s): D64.9 - Anemia, unspecified <Yonas EulaANN MARIE PolancoN-C - Last Filed: 03/26/21 11:05> Status: Acute <Yonas EulaBora Petersen APN-C - Last Filed: 03/26/21 11:05> Assessment and Plan: H&H 10.5 and 31.8, baseline H&H appears to be continue iron supplement no active bleeding noted 03/26/2021 Stable chronic condition, H/H 1030.2 <APRYL Sanchez - Last Filed: 03/26/21 11:05> (4) IDDM (insulin dependent diabetes mellitus): Code(s): E11.9 - Type 2 diabetes mellitus without complications; Z79.4 - bed bug exterminator (current) use of insulin <APRYL Sanchez - Last Filed: 03/26/21 11:05> Status: Chronic <APRYL Sanchez - Last Filed: 03/26/21 11:05> Assessment and Plan: stable continue home medication continue Accu-Chek sliding scale and hypoglycemic protocol will adjust medication as needed continue diabetic diet 03/26/2021 Glucose have been pretty well controlled during her hospitalization, will send home with same home medications. <APRYL Sanchez - Last Filed: 03/26/21 11:05> (5) HTN (hypertension): Qualifiers: Hypertension type: essential hypertension Qualified Code(s): I10 - Essential (primary) hypertension <APRYL Sanchez - Last Filed: 03/26/21 11:05> Code(s): I10 - Essential (primary) hypertension <APRYL Sanchez - Last Filed: 03/26/21 11:05> Status: Chronic <APRYL Sanchez - Last Filed: 03/26/21 11:05> Assessment and Plan: blood pressure 138/74 continue losartan 25 mg HS vital signs as ordered will adjust medication as needed 03/26/2021 VSS, no adjustments to medications have been made. <APRYL Sanchez - Last Filed: 03/26/21 11:05> (6) Migraine: Qualifiers: Intractability: intractable Migraine type: without aura Status migrainosus presence: with status migrainosus Qualified Code(s): G43.011 - Migraine without aura, intractable, with status migrainosus <APRYL Sanchez - Last Filed: 03/26/21 11:05> Code(s): G43.909 - Migraine, unspecified, not intractable, without status migrainosus <APRYL Sanchez - Last Filed: 03/26/21 11:05> Status: Acute <APRYL Sanchez - Last Filed: 03/26/21 11:05> Assessm
--- NOTE | 2021-03-26 11:20 | PC.NURSE ---
Discharge packet reviewed with patient, patient verbalizes understanding. Patient ambulated off floor, escorted to main entrance and patient left per self in her vehicle.
--- NOTE | 2021-03-27 13:42 | PC.NURSE ---
Pt states she received and understood her discharge instructions. Pt has no other comments.
== END 2021-03-26 11:20 | disposition home or self-care (01) ==
LOC: CHSED 20:14 → CHS2ND 20:35
PROVIDERS: Nurse Practitioner; Admitting Provider Emergency Medicine; Emergency Provider Emergency Medicine; PCP Internal Medicine; Visit Provider Emergency Medicine
DX: N10 Acute pyelonephritis (principal); K52.9 Noninfective gastroenteritis and colitis, unspecified; D64.9 Anemia, unspecified; E11.9 Type 2 diabetes mellitus without complications; I10 Essential (primary) hypertension; E66.01 Morbid (severe) obesity due to excess calories; R10.9 Unspecified abdominal pain; E78.00 Pure hypercholesterolemia, unspecified; I81 Portal vein thrombosis; M79.7 Fibromyalgia; G47.33 Obstructive sleep apnea (adult) (pediatric); K62.3 Rectal prolapse; G43.909 Migraine, unspecified, not intractable, without status migrainosus; F41.9 Anxiety disorder, unspecified; F32.9 Major depressive disorder, single episode, unspecified; Z86.2 Personal history of diseases of the blood and blood-forming organs and certain disorders involving the immune mechanism; Z79.4 Long term (current) use of insulin; Z85.528 Personal history of other malignant neoplasm of kidney; Z87.891 Personal history of nicotine dependence; Z90.710 Acquired absence of both cervix and uterus; Z90.49 Acquired absence of other specified parts of digestive tract; Z90.5 Acquired absence of kidney; Z83.71 Family history of colonic polyps; Z80.1 Family history of malignant neoplasm of trachea, bronchus and lung
CPT/HCPCS: 36415; 74177; 80053; 81001; 82948; 83605; 83690; 83735; 83880; 84484; 85025; 85027; 85610; 85730; 87040; 87077; 87086; 87088; 87186; 93005; 96361; 96365; 96366; 96367; 96375; 99285; A9270; G0378; J1815; J1956; J2405; J7030; Q9967

== ENCOUNTER 2021-07-04 10:12 | Outpatient (CLI) | payer OTHER, MEDICAID, SELFPAY ==
--- NOTE | ~2021-07-04 | NM_ITS ---
EXAMINATION: NM [place] stress w perfusion DATE: 07/04/2021 13:29 INDICATION: Chest pain, unspecified. TECHNIQUE: Rest images were obtained following intravenous administration of 9 mCi Tc99m tetrofosmin (Myoview). The patient was infused intravenously with Lexiscan (regadenoson). Then, 27.9 mCi Tc99m te trofosmin (Myoview) was administered intravenously, and stress images were obtained. Data was reconst ructed into short axis and horizontal and vertical long axis SPECT images. Gated SPECT images were al so obtained. COMPARISON: CT abdomen and pelvis 03/24/2021 FINDINGS: There is no definite reversible or fixed perfusion abnormality to suggest ischemia or infar ction. There is no segmental wall motion abnormality. Left ventricular ejection fraction measures > 70%. IMPRESSION: 1. No definite ischemia or infarct. 2. Normal left ventricular ejection fraction measuring >70%. Reviewed, dictated and finalized at location A.
--- NOTE | 2021-07-04 11:01 | EST_ITS ---
Patient Info Name: Alice Connor Age: 55 years : 1965 Gender: Female Ht: 65 in Wt: 223 lbs BSA: 2.20 m2 HR: 72 bpm BP: 132 / 77 mmHg Heart Rhythm: Sinus Rhythm Exam Date: 07/04/2021 11:43 AM Exam Location: [facility] Stress Patient Status: Outpatient Admit Date: 07/04/2021 Staff Ordering Physician: Derrell Abdalla DO Attending Provider: Derrell Abdalla DO Exercise Technologist: Corrine Magdaleno CT Exercise Physician: Derrell Abdalla DO Exam Type: CA stress [place] w NM Study Info A regadenoson stress test was performed. Summary 1. 1. Negative lexiscan stress test for ischemic ST changes by ECG criteria. 2. 2. Stable hemodynamics throughout the test. 3. 3. Nuclear scan to follow and will be reported separately. Please correlate with it. 4. 4. Patient informed of the above results. Protocol: Lexiscan Stress ECG Details Stage: REST Duration (min): 1 min : 0 sec HR (bpm): 71 SBP (mmHg): 132 DBP (mmHg): 77 Stage: REST Duration (min): 23 min : 24 sec HR (bpm): 74 SBP (mmHg): 132 DBP (mmHg): 77 Stage: STAGE 1 Duration (min): 1 min : 0 sec HR (bpm): 83 SBP (mmHg): 136 DBP (mmHg): 76 Stage: RECOVERY Duration (min): 1 min : 0 sec HR (bpm): 99 SBP (mmHg): 136 DBP (mmHg): 76 Stage: RECOVERY Duration (min): 2 min : 0 sec HR (bpm): 99 SBP (mmHg): 136 DBP (mmHg): 76 Stage: RECOVERY Duration (min): 3 min : 0 sec HR (bpm): 93 SBP (mmHg): 159 DBP (mmHg): 73 Stage: RECOVERY Duration (min): 3 min : 6 sec HR (bpm): 93 SBP (mmHg): 159 DBP (mmHg): 73 Rest HR: 74 bpm Peak HR: 102 bpm Rest Sys BP: 132 mmHg Peak Sys BP: 159 mmHg Max Pred HR: 163 bpm % Max Pred HR: 63 % Target HR: 139 bpm Max RPP: 16,218 bpm*mmHg Termination Reason: Completed protocol Cardiac Symptoms: Shortness of breath Total Time: 1 min : 0 sec Rest Casas BP: 77 mmHg Peak Casas BP: 73 mmHg Total Dose: 0.4 mg Resting ECG Sinus rhythm, low voltage- diffuse leads, borderline T wave in anterior leads. Stress ECG No ST changes. Arrhythmias None. Report Signatures
== END 2021-07-04 10:13 | disposition home or self-care (01) ==
PROVIDERS: PCP Internal Medicine; Visit Provider Internal Medicine Cardiovascular Disease
DX: R07.89 Other chest pain (principal)
CPT/HCPCS: 78452; 93017; A9502; J2785

== ENCOUNTER 2021-08-20 16:09 | Outpatient (CLI) | payer OTHER, MEDICAID, SELFPAY ==
[2021-08-20 17:12] LABS: Alanine Aminotransferase 49 U/L (14-59); Alkaline Phosphatase 113 U/L (46-116); Anion Gap 14 mmol/L (8-16); Aspartate Amino Transferase 18 U/L (15-37); Bilirubin,Total 0.4 mg/dL (0.00-1.00); Blood Urea Nitrogen 34 mg/dL (7-18); Calcium 8.9 mg/dL (8.5-10.1); Carbon Dioxide 18 mmol/L (21-32); Chloride 105 mmol/L (98-108); Estimated Glomerular Filt Rate 43; Glucose 286 mg/dL (70-99); Magnesium 1.4 mg/dL (1.8-2.4); Osmolality Calculated 301 mOsm/kg (285-295); Potassium 5.8 mmol/L (3.5-5.1); Sodium 137 mmol/L (136-145); Total Protein 7.4 g/dL (6.4-8.2)
== END 2021-08-20 16:10 | disposition home or self-care (01) ==
PROVIDERS: PCP Internal Medicine; Visit Provider Internal Medicine
DX: E87.5 Hyperkalemia (principal); R94.5 Abnormal results of liver function studies
CPT/HCPCS: 36415; 80053; 83735

== ENCOUNTER 2021-09-03 10:31 | Outpatient (CLI) | payer OTHER, MEDICAID, SELFPAY ==
[2021-09-03 11:34] LABS: Alanine Aminotransferase 34 U/L (14-59); Albumin Level 3.4 g/dL (3.4-5.0); Alkaline Phosphatase 118 U/L (46-116); Anion Gap 14 mmol/L (8-16); Aspartate Amino Transferase 26 U/L (15-37); Bilirubin,Total 0.3 mg/dL (0.00-1.00); Blood Urea Nitrogen 22 mg/dL (7-18); Calcium 8.8 mg/dL (8.5-10.1); Carbon Dioxide 20 mmol/L (21-32); Chloride 105 mmol/L (98-108); Estimated Glomerular Filt Rate 57; Glucose 217 mg/dL (70-99); Osmolality Calculated 298 mOsm/kg (285-295); Potassium 5.1 mmol/L (3.5-5.1); Sodium 139 mmol/L (136-145); Total Protein 6.8 g/dL (6.4-8.2)
== END 2021-09-03 10:32 | disposition home or self-care (01) ==
LOC: CHSLAB 10:34
PROVIDERS: PCP Internal Medicine; Visit Provider Internal Medicine
DX: E11.9 Type 2 diabetes mellitus without complications (principal)
CPT/HCPCS: 36415; 80053